=== PATIENT | female | born 1935 | race Caucasian/White ===

== ENCOUNTER 2018-09-08 19:10 | Inpatient (IN) | payer MEDICARE, BC, SELFPAY ==
[2018-09-08 19:16] VITALS: BP 114/95; PULSE 103; RESP 17; TEMP 36.7; O2SAT 94; BMI 22.0
--- NOTE | 2018-09-08 19:36 | EKG12_ITS ---
Test Reason : WEAKNESS Blood Pressure : / mmHG Vent. Rate : 102 BPM Atrial Rate : 102 BPM P-R Int : 166 ms QRS Dur : 080 ms QT Int : 318 ms P-R-T Axes : 034 -17 012 degrees QTc Int : 414 ms Sinus tachycardia Possible Left atrial enlargement Left ventricular hypertrophy Nonspecific ST abnormality Abnormal ECG Confirmed by JANELLE ARAIZA, PEYTON ([id number]), editor publications BARBARA VILLALPANDO ([id number]) on 09/13/2018 8:24:12 AM Referred By: Kristin Stewart Confirmed By:PEYTON LUIS MD
--- NOTE | 2018-09-08 19:40 | RAD_ITS ---
HISTORY: Weakness and chest discomfort XR Chest 1 View TECHNIQUE: Single frontal view of chest. # of images incl. paperwork: 1 COMPARISON: None. FINDINGS: Normal heart size. Pulmonary vasculature appears normal. The lungs are clear. No pleural effusions or pneumothorax. No acute osseous abnormality of the thorax. Senescent osseous changes. RAD/Chest 1 View (Portable) IMPRESSION: 1. No acute cardiopulmonary disease. at 2006 Reported and signed by: Hosea Leslie MD Electronically Signed: Hosea Leslie MD at 20:05 EDT Tel , Service support ,
[2018-09-08 19:55] VITALS: BP 99/72; PULSE 100; RESP 18; O2SAT 93
--- NOTE | 2018-09-08 19:56 | RAD_ITS ---
HISTORY: Status post fall with left hip pain XR Hip Unilateral with Pelvis when performed; 2-3 Views TECHNIQUE: 3 views # of images incl. paperwork: 3 COMPARISON: None. FINDINGS: Acute left hip subcapital femoral neck fracture with moderate displacement of the distal fragment superolaterally. Remainder of the bony pelvis is otherwise intact. Soft tissues appear unremarkable. No radiopaque foreign body. RAD/HIP, UNI W/ Pelvis 2-3 Views IMPRESSION: 1. Left hip subcapital femoral neck fracture with moderate displacement of the distal fragment. at 2043 Reported and signed by: Hosea Leslie MD Electronically Signed: Hosea Leslie MD at 20:42 EDT Tel , Service support ,
--- NOTE | 2018-09-08 19:57 | ED.DCSUM_ITS ---
History of Present Illness Chief Complaint: Weakness Informant: Patient Onset: Days Current Severity: Moderate Narrative: The patient here complaining of severe left hip pain she indicates she fell could not get up was awake and alert and basically was on the floor for home for about 4 days she eventually was able to get to the telephone call for assistance and she was brought to the hospital. Her only complaint right now is generalized weakness fatigue and left hip pain Past Medical History - Allergies and Home Meds Allergies/Adverse Reactions: Allergies latex Adverse Reaction (Verified 09/08/18 19:12) Other ALL ATB Adverse Reaction (Uncoded 09/08/18 19:16) Other BLOCKED HER BRAIN Primary Care Physician: Rodney Garcia III, MD [Primary Care Provider] - Smoking Status: Never smoker Review of Systems All systems negative except as indicated General: Denies: Chills, Fever, Sweats Eyes: Denies: Visual changes - bilaterally, Diplopia ENT: Denies: Rhinorrhea, Sore throat Cardiovascular: Denies: Chest pain, Palpitations Respiratory: Denies: Dyspnea, Cough, Dyspnea on exertion Gastrointestinal: Denies: Abdominal pain, Nausea, Vomiting, Diarrhea, Melena, Hematochezia Genitourinary: Denies: Dysuria, Hematuria, Frequency Musculoskeletal: Reports: Extremity Pain, - - She has obvious pain to the left hip discoloration to that area, she has about a 6 cm circular looks like a rug burn to the posterior hip where she has been laying in scooting her midline back was nontender her knees tib-fib ankle and feet were nonremarkable nontender upper extremities were nontender neurologic she is awake alert answering questions appropriately. Denies: Back pain Skin: Denies: Rash, Wounds Neurological: Denies: Headache, Weakness, Numbness Physical Exam Vital Signs/Narrative: Vital Signs Temp Pulse Resp BP Pulse Ox 09/08/18 19:55 100 18 99/72 93 09/08/18 19:16 98.0 F 103 H 17 114/95 H 94 General: Well nourished, Well developed, No Acute Distress Head: Normocephalic, Atraumatic Eyes: Perrl, EOMI ENT: Moist mucous membranes, No rhinorrhea Neck: Supple, Nontender Cardiovascular: Regular rate, Regular rhythm, No murmurs Respiratory: No distress, CTA bilaterally, Chest nontender Abdomen: Soft, Nontender, Nondistended, Normal bowel sounds Back: Nontender, Normal Inspection Extremities: No edema, Tenderness, - - See the documentation related to review of systems regarding this part of the exam Skin: Normal color, No rash Neurological: Alert, Oriented x3, Cranial nerves II-XII grossly intact, Normal Strength, Normal Sensation Psychological: Normal affect, Normal Mood Diagnostic/Tx/Re-eval - Medical Decision Making The patient's x-ray shows left subcapital fracture with displacement see that report the rest of the studies were generally unremarkable her CPK is pending sh e received IV fluids and pain management infected declined the morphine at this time given all the above we will discuss case for admission with hospitalist and orthopedic surgery Final Left hip fracture with displacement Fall ED Disposition - Plan for ED Patient: Referrals: Rodney Garcia III, MD [Primary Care Provider] -
[2018-09-08] MEDS: 0.9% Normal Saline 1,000 ML 150 ML IV (19:58)
[2018-09-08 20:00] LABS: Absolute Lymphocyte Count 1.75 X10^3/ul (0.83-4.51); Absolute Neutrophil Count 9.4 X10^3/uL (2.0-7.7); Eosinophil# 0.02 X10^3/uL; Eosinophils% 0.2 % (0-5); Hematocrit 47.1 % (37-47); Hemoglobin 15.7 g/dl (12.0-15.0); Lymphocyte # 1.75 X10^3/ul (4.0); Lymphocyte % 13.8 % (19-41); Mean Corp Hgb Conc 33.3 g/gl (32-36); Mean Corpuscular Hgb 30.5 pg (27.0-32.0); Mean Corpuscular Volume 91.6 fL (81-99); Mean Platelet Vol. 10.5 fl (6.2-12.0); Monocyte# 1.47 X10^3/uL; Monocyte% 11.6 % (0-10); Neutrophil # 9.41 X10^3/uL (2.7-7.7); Neutrophil % 74.1 % (47-70); Platelet Count 389 K/mm3 (150-450); RBC Distribution Width CV 12.8 % (11.6-14.6); RBC Distribution Width SD 41.9 fl (35.1-43.9); Red Blood Count 5.14 M/mm3 (4.2-5.4); White Blood Count 12.7 K/mm3 (4.4-11.0)
[2018-09-08 20:02] LABS: POSITIVE COUNT NO; POSITIVE DIFFERENTIAL NO; POSITIVE MORPHOLOGY NO
[2018-09-08 20:15] LABS: AST(SGOT) 45 U/L (15-37); Alanine Aminotransfer ALT/SGPT 36 U/L (13-56); Alkaline Phosphatase 121 U/L (45-117); Anion Gap 7 (5-15); BUN 52 mg/dL (7-18); BUN/Creat Ratio 73.3 RATIO (10-20); Calcium,Total 9.1 mg/dL (8.5-10.1); Chloride 102 mmol/L (98-107); Creatinine, Serum 0.71 mg/dL (0.55-1.02); EST Glomerular Filtration Rate 84 mL/min (>60); Est Glom Filt Rate - Afr Amer 101 mL/min (>60); Estimated Creatinine Clearance 33.71 ml/min; Glucose 108 mg/dL (74-106); Lipase 169 U/L (73-393); Potassium 3.5 mmol/L (3.5-5.1); Sodium Level 137 mmol/L (136-145)
[2018-09-08 20:22] VITALS: BP 134/83; PULSE 73; RESP 18; TEMP 36.7; O2SAT 96
--- NOTE | 2018-09-08 20:25 | ED.RN ---
PT HAS ABRASIONS ON BILAT ELBOW,BRUISING ON R HIP AND ABRASIONS ON R KNEE.PT WAS COVERED WITH FECES FROM JOHN-AREA TO FEET.JOHN-CARE GIVEN.ASKED PT WHAT THE GREEN SUBSTANCE ON HER THIGHS AND LOWER ABDOMEN AND SHE SAID,EITHER ABSORBANT JR OR LYSOL. ATTEMPT TO REMOVE.
[2018-09-08 20:30] LABS: BNP,B-Type NATRIURETIC PEPTIDE 95.4 pg/mL (0-100)
[2018-09-08 20:31] LABS: Red Blood Cells-Urine 0 SEEN /hpf (0-5); Squamous Epithelial Cells - UA 0 SEEN /hpf (5-10); White Blood Cells 0 SEEN /hpf (0-5)
[2018-09-08 20:45] LABS: Color, Urine Yellow (Yellow); Glucose, Dipstick Normal (Normal); Ketone-Dipstick 15 mg/dl (Negative); Leukocyte Esterase-Dipstick 25 /ul (Negative); Nitrite-Dipstick Negative (Negative); Occult Blood-Urine 10 /ul (Negative); Protein-Dipstick 100 mg/dl (Negative); Urine Bilirubin Dipstick Negative (Negative); Urine Clarity Clear (Clear); Urine Urobilinogen Normal (Normal)
--- NOTE | 2018-09-08 20:57 | ED.RN ---
MD AWARE PT REFUSED MORPHINE AND ZOFRAN.
[2018-09-08 21:04] LABS: Bacteria RARE /hpf (None Seen); Mucous, Urine RARE /hpf (<or=2+)
--- NOTE | 2018-09-08 21:15 | HP.PCM_ITS ---
Problem List (1) Closed left hip fracture Status: Acute Qualifiers: Encounter type: initial encounter Qualified Code(s): S72.002A - Fracture of unspecified part of neck of left femur, initial encounter for closed fracture (2) Cardiac enzymes elevated Status: Acute (3) Gastroenteritis Status: Acute History of Present Illness Date of Admission: 09/08/18 Chief Complaint: Left hip pain The patient is a 83 y/o F w/ no PMHx but does not routinely have evaluations who presents to the [facility] [place] ED on 09/08/18 with history of recent GI illness with diarrhea ~5 days prior with notable fatigue with fall and onset LLE pain with inability to get up, laying on the floor for unclear timeline, possibly days (4) and increased confusion with eventually ability to reach the telephone for help. Work-up in the ED included T 98, heart rate initially 103 with improvement to 73 with pain control, BP 114/95, respiratory rate 17, 94% on room air, CBC with WBC 12.7, hemoglobin 15.7, platelet 389 with left shift, CMP with BUN/Cr 52/0.71, glucose 108, AST/ALT 45/36, Alk phos 121, TCK 233, trop 0.048, BNP 95.4, lipase 169, UA with only noted evidence of dehydration but no acute UTI evident, plain film of the hip and pelvis with left hip subcapital femoral neck fracture with moderate displacement of the distal fragment, EKG with SR without acute evidence of ischemia, chest x-ray with no acute cardiopulmonary process. Case discussed with Dr. Sapp. 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 Home Medications: Ambulatory Orders Medication Instructions Recorded Ibuprofen 200 mg PO BID 09/08/18 Surgical History: no surgical history Psychiatric History: No pertinent psych hx [employer] History: No pertinent [employer] history Lives: Alone Smoking Status: Former smoker Tobacco Use: Non-smoker Alcohol: None Drugs: None - *Family History Maternal History Items: Dementia Paternal History Items: - - Patient denies any marketed paternal family history including heart disease, diabetes or cancer and states that her father passed at the age of 72 secondary to a trauma, hit by vehicle. Review of Systems Constitutional: Reports: Malaise, Weakness, Fatigue. Denies: Chills, Fever, Weight Change HEENT: Denies: Head Aches, Sinus Congestion, Sinus Drainage Cardiovascular: Denies: Chest Pain, Palpitations Respiratory: Denies: Cough, Shortness of breath at rest, Sputum production Gastrointestinal: Reports: Diarrhea, Nausea, Vomiting. Denies: Abdominal Pain Genitourinary: Denies: Dysuria Musculoskeletal: Reports: Joint Pain, Joint stiffness, Joint swelling, Joint Tenderness, Leg Pain Skin: Reports: Skin Changes. Denies: Rash, Wounds Neurological: Denies: Numbness, Tingling, Focal weakness Psychiatric: Denies: Anxiety, Depression, Homicidal Ideations, Suicidal Ideations Hematologic/ Lymphatic: Denies: Easy Bruising, Easy Bleeding VTE Information - Inpt Only VTE Present on Admission: No VTE Mechan Device Prophylaxis: SCD's VTE Pharm Prophylaxis ordered?: Yes Patient Problems: Active and Suspected Problems Closed left hip fracture (Acute) Cardiac enzymes elevated (Acute) Gastroenteritis (Acute) Subjective: Laying in the ED bed, fatigued appearance, notes ongoing left hip pain, declined ED pain regimen. Objective: Physical Examination: General: awake, alert, oriented to self place and recent events; however, some of her commends and discussion odd and atypical speech streamed sentencing, remains cooperative, seated upright in bed in no apparent distress. Skin: normal color, turgor, no icterus, cyanosis, abrasions to the extremities, staged, ecchymotic at site of fall. HEENT: AT/NC, EOMI, PERRLA, dry MM, no carotid bruits or JVD noted. Lungs: CTA bilaterally, moderate effort, mild decrease BL bases, no rales, ronchi or wheezing. Heart: Regular rate and rhythm; no gallop, rub audible, SM present. Abdomen: soft, thin habitus, NTTP, ND, normal BS, no HSM. Extremities: no cyanosis, clubbing, s/p fall w/ L hip fracture. Neurological: patient awake, alert, oriented x 3; cognitive function intact; pupils equally reactive to light and accomodation; cranial nerves II-XII grossly normal, moving all 4 extremities although minimal and restricted secondary to recent fall with L hip fracture, strength accordingly severely globally decreased. Psychiatric: affect appears normal, no acute evidence of depressive or anxiety feelings. - Physical Exam Vital Signs Temp Pulse Resp BP Pulse Ox 98.0 F 73 18 134/83 H 96 09/08/18 20:22 09/08/18 20:22 09/08/18 20:22 09/08/18 20:22 09/08/18 20:22 Oxygen Delivery Method Room Air Weight: 120 lb 9.486 oz Body Mass Index (BMI) 22.0 Laboratory Tests Past 24 Hrs 09/08/18 09/08/18 09/08/18 19:20 19:20 19:20 WBC 12.7 H RBC 5.14 Hgb 15.7 H Hct 47.1 H MCV 91.6 MCH 30.5 MCHC 33.3 RDW 12.8 RDW Differential 41.9 Plt Count 389 MPV 10.5 Immature Gran % (Auto) 0.300 Neut % (Auto) 74.1 H Lymph % (Auto) 13.8 L Bleckley % (Auto) 11.6 H Eos % (Auto) 0.2 Baso % (Auto) 0.0 Absolute Neuts (auto) 9.4 H Absolute Lymphs (auto) 1.75 Total Counted Not Reportable Sodium 137 Potassium 3.5 Chloride 102 Carbon Dioxide 28.0 Anion Gap 7 BUN 52 H Creatinine 0.71 Estim Creat Clear Calc 33.71 Est GFR (MDRD) Af Amer 101 Est GFR (MDRD) Non-Af 84 BUN/Creatinine Ratio 73.3 H Glucose 108 H Calcium 9.1 Total Bilirubin 0.80 Direct Bilirubin 0.20 AST 45 H ALT 36 Alkaline Phosphatase 121 H Total Creatine Kinase Troponin I 0.048 H B-Natriuretic Peptide 95.4 Total Protein 8.0 Albumin 3.0 L Globulin 5.0 H Lipase 169 Urine Color Urine Clarity Urine pH Ur Specific Katy Urine Protein Urine Glucose (UA) Urine Ketones Urine Occult Blood Urine Nitrite Urine Bilirubin Urine Urobilinogen Ur Leukocyte Esterase Urine RBC Urine WBC Ur Squamous Epith Cells Urine Bacteria Urine Mucus 09/08/18 09/08/18 19:20 20:15 WBC RBC Hgb Hct MCV MCH MCHC RDW RDW Differential Plt Count MPV Immature Gran % (Auto) Neut % (Auto) Lymph % (Auto) Bleckley % (Auto) Eos % (Auto) Baso % (Auto) Absolute Neuts (auto) Absolute Lymphs (auto) Total Counted Sodium Potassium Chloride Carbon Dioxide Anion Gap BUN Creatinine Estim Creat Clear Calc Est GFR (MDRD) Af Amer Est GFR (MDRD) Non-Af BUN/Creatinine Ratio Glucose Calcium Total Bilirubin Direct Bilirubin AST ALT Alkaline Phosphatase Total Creatine Kinase Pending Troponin I B-Natriuretic Peptide Total Protein Albumin Globulin Lipase Urine Color Yellow Urine Clarity Clear Urine pH 6.0 Ur Specific Katy 1.020 Urine Protein 100 H Urine Glucose (UA) Normal Urine Ketones 15 H Urine Occult Blood 10 H Urine Nitrite Negative Urine Bilirubin Negative Urine Urobilinogen Normal Ur Leukocyte Esterase 25 H Urine RBC Pending Urine WBC Pending Ur Squamous Epith Cells Pending Urine Bacteria Pending Urine Mucus Pending Assessment/Plan All Active Problems Closed left hip fracture (Acute) Cardiac enzymes elevated (Acute) Gastroenteritis (Acute) The patient is a 83 y/o F w/ no PMHx but does not routinely have evaluations who presents to the [facility] [place] ED on 09/08/18 with history of recent GI illness with diarrhea ~5 days prior with notable fatigue with fall and onset LLE pain with inability to get up, laying on the floor for unclear timeline, possibly days (4) and increased confusion with eventually ability to reach the telephone for help. (1) General debility, L hip pain s/p mechanical fall w/ left subcapital femoral neck fracture w/ Fall with Evidence Mild rhabdomyolysis: Work-up in the ED included T 98, heart rate initially 103 with improvement to 73 with pain control, BP 114/95, respiratory rate 17, 94% on room air, CBC with WBC 12.7, hemoglobin 15.7, platelet 389 with left shift, CMP with BUN/Cr 52/0.71, glucose 108, AST/ALT 45/36, Alk phos 121, TCK 233, trop 0.048, BNP 95.4, lipase 169, UA with only noted evidence of dehydration but no acute UTI evident, plain film of the hip and pelvis with left hip subcapital femoral neck fracture with moderate displacement of the distal fragment, chest x-ray with no acute cardiopulmonary process. Will admit to [facility] with telemetry, maintain NPO after midnight, continue gentle IVFs, obtain TSH, Mag level, UA not marked, cain placement, monitor I/Os, frequent positioning, fall precautions, type and screen, repeat AM TCK. Pain, anti-emetic regimen. PT/OT following operative intervention. CM consulted for discharge planning. Per Emerson Perioperative Cardiac Risk Index given >4 METS, age 83, Cr normal, independent living status, ASA prior minimal, noted indeterminate trop for orthopedic intervention, estimated risk of perioperative myocardial infarction or cardiac arrest suspect remains low; however, will maintain on telemetry, cycle cardiac enzymes, repeat EKG in AM and as needed and obtain ECHO prior to OR intervention. (2) Indeterminate cardiac enzyme, likely stress with murmur: EKG in ED SR with nonspecific changes with no acute evidence of ischemia, CXR w/ no acute cardiopulmonary process, initial trop 0.048. Will place on a monitored bed to assure no acute myocardial infarction with serial cardiac enzymes and EKGs. Will obtain ECHO. ASA, NG, morphine. FLP in AM. Mag pending. (3) Recent Diarrhea, resolved, Suspect Recent Acute Viral gastroenteritis: Will maintain on hydration, if recurrent diarrhea would wobtain c diff, stool cx, repeat AM CBC. Anti-emetics, pain regimen PRN. (4) DVT Prophylaxis: SCDs, lovenox. Code Visit Inpatient E&M: 95596 Init Hosp L3
[2018-09-08 21:26] LABS: CPK Total, Creatine Kinase 233 U/L (26-192)
[2018-09-08] MEDS: 0.9% Normal Saline 1,000 ML 999 ML IV (22:36)
[2018-09-08 22:45] VITALS: BP 134/90; PULSE 73; RESP 18; TEMP 36.4; O2SAT 96
[2018-09-08] MEDS: 0.9% Normal Saline 1,000 ML 100 ML IV (22:50)
[2018-09-08 22:57] VITALS: BMI 22.2
[2018-09-08 23:01] VITALS: BMI 22.2
[2018-09-08 23:12] LABS: International Normalized Ratio 1.2; Prothrombin Time (Protime)PT. 15.3 SECONDS (11.7-14.9)
[2018-09-08 23:13] LABS: Partial Thromboplast Time 27.7 Seconds (24.1-36.2)
[2018-09-08] MEDS: Enoxaparin 30 MG/0.3 ML Syringe SC (23:13)
[2018-09-08] MEDS: MELATONIN 3 MG TABLET PO (23:24)
[2018-09-08 23:31] LABS: Magnesium 2.5 mg/dL (1.6-2.6)
[2018-09-09] VITALS (18 sets, daily range): BP systolic 98–135; BP diastolic 65–86; PULSE 61–94; RESP 12–18; TEMP 36.2–36.8; O2SAT 91–96; BMI 22.2
--- NOTE | 2018-09-09 | HIP_PTH ---
PATIENT: FOREIGN GOODWIN LOC: [facility] U#:[id number] AGE/SX: 83/F ROOM: AL322 RE09/08/[address]: Dr. Kimmie Henry MD : [id number] BED: 1 DIS: 09/11/2018 SPEC #: [id number] RECD: 09/09/18 16:43 STATUS: CRYSTAL REQ #: [id number] [place]: 09/09/18 00:[address]: Shalom Sapp DEPT: SURGICAL PATHOLOGY RECD BY: Fox Higgins ENTERED: 09/12/18 08:42 SP TYPE: TOTAL HIP OTHR DR: MD Dr. Rodney Santos III, MD Dr. Nana Yaa Koram, MD Dr. Steven Widmer, MD Tissues: Hip, NOS Procedures: Decalcification bone/plaque Surgery Specimen Level IV Comments: @ Ordering doctor for DEC edited from to @ by JOSELIN at 09/12/18 1438 @ Ordering doctor for SUIV edited from to @ by JOSELIN at 09/12/18 1438 @ Submitting doctor edited from to @ by JOSELIN at 09/12/18 1438 HEADER OPERATION: Hemiarthroplasty, hip anterior PRE-OP DIAGNOSIS: Closed left hip fracture TISSUE SUBMITTED: Left femoral head bone and tissue MICROSCOPIC DIAGNOSIS Left hip fracture: Consistent with organizing fracture callous. AM:murtaza 09/15/18 MICROSCOPIC DESCRIPTION Slides are reviewed. GROSS DESCRIPTION Received is one container labeled with the patient's name and designated left femoral head bone and tissue. The specimen consists of a mendenhall femoral head measuring 4.5 x 4.5 x 3.5 cm. The articular surface is grossly unremarkable. The nonarticular surface is hemorrhagic and irregular consistent with fracture site. Also present in the specimen container are multiple irregular fragments of dark mendenhall bone measuring in aggregate 6 x 5 x 1.5 cm. Bundle Helper sections are submitted in three cassettes after decalcification. / AM:murtaza 09/12/18 TC:5 CPT: 35871, 97783
--- NOTE | 2018-09-09 05:55 | ECHOD_ITS ---
Reason For Study: Arrhythmia Procedure This was a 2D Doppler, Color Flow transthoracic echocardiogram. Technically difficult study, patient was scanned supine due to left hip fracture. Exam performed portable in patient room. Left Ventricle Normal LV size. Left ventricular systolic function is normal. The estimated ejection fraction is 65 %. Stage 1 diastolic dysfunction. No regional wall motion abnormalities noted. Right Ventricle Normal RV size. Normal systolic function. Atria Normal left atrium. Normal right atrium. Mitral Valve Normal mitral valve. Mild (1+) eccentric mitral valve insufficiency. Tricuspid Valve Normal tricuspid valve. Aortic Valve Trisinus/trileaflet aortic valve. Mild focal aortic valve calcification. Mild (1+) aortic valve insufficiency. Pulmonic Valve Normal pulmonic valve. Great Vessels Mildly dilated aortic root. The pulmonary artery is normal size. Normal inferior vena cava. Pericardium/Pleural No pericardial effusion. MMode/2D Measurements & Calculations LVIDd: 3.0 cm IVSd: 2.4 cm Ao root diam: 4.3 cm LVIDs: 2.4 cm LVPWd: 1.7 cm FS: 17.6 % Time Measurements MV dec time: 0.21 sec Doppler Measurements & Calculations MV E max anil: 44.2 cm/sec Lat Peak E' Anil: 4.6 cm/sec Med Peak E' Anil: 6.3 cm/sec MV A max anil: 105.7 cm/sec E/E' lat: 9.6 E/E' med: 7.0 MV E/A: 0.42 MV V2 max: 125.2 cm/sec MV P1/2t max anil: 70.6 cm/sec Ao V2 max: 90.0 cm/sec MV max P.3 mmHg MV P1/2t: 81.1 msec Ao max P.3 mmHg MV V2 mean: 59.4 cm/sec MV mean P.7 mmHg MV dec slope: 255.0 cm/sec2 MV V2 VTI: 23.1 cm MVA(P1/2t): 2.7 cm2 AI end-d anil: 384.4 cm/sec LV V1 max: 77.0 cm/sec PA V2 max: 95.2 cm/sec AI max anil: 439.1 cm/sec LV V1 max P.4 mmHg AI max P.1 mmHg AI dec slope: 269.5 cm/sec2 AI P1/2t: 477.2 msec Interpretation Summary Normal LV size. Left ventricular systolic function is normal. The estimated ejection fraction is 65 %. Stage 1 diastolic dysfunction. Mild (1+) aortic valve insufficiency. Ordering Physician: Kristin Stewart Referring Physician: Kristin Stewart Performed By: Shailesh Peters RCS
--- NOTE | 2018-09-09 05:55 | EKG12_ITS ---
Test Reason : AM EKG Blood Pressure : / mmHG Vent. Rate : 062 BPM Atrial Rate : 062 BPM P-R Int : 164 ms QRS Dur : 080 ms QT Int : 434 ms P-R-T Axes : 042 -08 009 degrees QTc Int : 440 ms Sinus rhythm with marked sinus arrhythmia Nonspecific T-Wave Abnormality Confirmed by HIGINIO ARAIZA, KRISS ([id number]), medical transcription editor BARBARA VILLALPANDO ([id number]) on 09/14/2018 11:40:20 AM Referred By: Kristin Stewart Confirmed By:KRISS SYLVESTER MD
[2018-09-09 06:01] LABS: Absolute Lymphocyte Count 1.59 X10^3/ul (0.83-4.51); Absolute Neutrophil Count 5.8 X10^3/uL (2.0-7.7); Eosinophil# 0.05 X10^3/uL; Eosinophils% 0.6 % (0-5); Hematocrit 42.7 % (37-47); Hemoglobin 13.9 g/dl (12.0-15.0); Lymphocyte # 1.59 X10^3/ul (4.0); Lymphocyte % 19.2 % (19-41); Mean Corp Hgb Conc 32.6 g/gl (32-36); Mean Corpuscular Hgb 30.2 pg (27.0-32.0); Mean Corpuscular Volume 92.8 fL (81-99); Mean Platelet Vol. 10.2 fl (6.2-12.0); Monocyte# 0.86 X10^3/uL; Monocyte% 10.4 % (0-10); Neutrophil # 5.77 X10^3/uL (2.7-7.7); Neutrophil % 69.4 % (47-70); Platelet Count 307 K/mm3 (150-450); RBC Distribution Width CV 12.7 % (11.6-14.6); White Blood Count 8.3 K/mm3 (4.4-11.0)
[2018-09-09 06:06] LABS: POSITIVE COUNT NO; POSITIVE DIFFERENTIAL NO; POSITIVE MORPHOLOGY NO
[2018-09-09 06:13] LABS: Anion Gap 8 (5-15); BUN 31 mg/dL (7-18); BUN/Creat Ratio 79.3 RATIO (10-20); Chloride 110 mmol/L (98-107); Cholesterol 120 mg/dL (200); Creatinine, Serum 0.39 mg/dL (0.55-1.02); EST Glomerular Filtration Rate 166 mL/min (>60); Est Glom Filt Rate - Afr Amer 201 mL/min (>60); Estimated Creatinine Clearance 32.17 ml/min; Glucose 86 mg/dL (74-106); High Density Lipoprotein 40 mg/dL; Potassium 3.2 mmol/L (3.5-5.1); Sodium Level 145 mmol/L (136-145); Triglycerides 117 mg/dL; Very Low Density Lipoprotein 23 mg/dL (5-40)
--- NOTE | 2018-09-09 07:08 | PCM.CONS.GEN ---
Reason for Consult Date of Consultation: 09/09/18 Reason for Consultation: Left hip pain. Requested by Dr. Stewart History of Present Illness: The patient is a 83 year old F with minimal medical history and lack of routine follow-up presents today with left hip pain. She presented to the emergency department last evening after having recent GI illness and diarrhea with fatigue for several days and then a fall a couple days ago. It is unknown how many days she maneuvered around her house with left hip pain she is somewhat lethargic this morning on examination. She does note that she use door handles to navigate around her house and finally was able to call the squad. She reports left hip pain which is worse with motion better with immobilization. Is a deep achy pain in her left thigh. There is a noticeable deformity in her foot is rotated. She was admitted to the hospital last night and seen by medicine. They recommended a cardiac echo and follow-up on enzymes. Patient reports 10 out of 10 pain with motion. 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 Review of Systems Constitutional: Denies: Chills, Fever, Weight Change HEENT: Denies: Head Aches, Sinus Congestion, Sinus Drainage Cardiovascular: Denies: Chest Pain, Palpitations Respiratory: Denies: Cough, Shortness of breath at rest, Sputum production Gastrointestinal: Reports: Diarrhea. Denies: Abdominal Pain, Nausea, Vomiting Genitourinary: Denies: Dysuria Musculoskeletal: Reports: Joint Pain, Joint Tenderness Skin: Reports: Rash - Rug burn on posterior thigh. Denies: Wounds Neurological: Denies: Numbness, Tingling, Focal weakness Psychiatric: Denies: Anxiety, Depression, Homicidal Ideations, Suicidal Ideations Hematologic/ Lymphatic: Denies: Easy Bruising, Easy Bleeding Patient Problems: Active and Suspected Problems Closed left hip fracture (Acute) Cardiac enzymes elevated (Acute) Gastroenteritis (Acute) Objective: Left hip x-ray show displaced subcapital femoral neck fracture - Physical Exam General: Alert, Cooperative HEENT: Atraumatic Extremities: - - Left lower extremity: Skin clean, dry, and intact. Limb is shortened and externally rotated Motor is intact dorsiflexion, EHL and plantar flexion. Sensation is intact to light touch saphenous, suresh,l superficial peroneal, deep peroneal and tibial distributions. Calves are soft and supple. Patient has some bruising and ecchymosis over the posterior thigh with superficial redness of the skin consistent with rug burn Vital Signs Temp Pulse Resp BP Pulse Ox 97.5 F L 64 16 116/69 95 09/09/18 04:45 09/09/18 04:45 09/09/18 04:45 09/09/18 04:45 09/09/18 04:45 Oxygen Delivery Method Room Air Weight: 117 lb 11.629 oz Body Mass Index (BMI) 22.2 Intake and Output for Last 24 Hours 09/07/18 09/08/18 09/09/18 23:59 23:59 23:59 Intake Total 104 / 104 687 / 687 Output Total 950 / 950 475 / 475 Balance -846 / -846 212 / 212 Laboratory Tests Past 24 Hrs 09/08/18 09/08/18 09/08/18 19:20 19:20 19:20 WBC 12.7 H RBC 5.14 Hgb 15.7 H Hct 47.1 H MCV 91.6 MCH 30.5 MCHC 33.3 RDW 12.8 RDW Differential 41.9 Plt Count 389 MPV 10.5 Immature Gran % (Auto) 0.300 Neut % (Auto) 74.1 H Lymph % (Auto) 13.8 L [place] % (Auto) 11.6 H Eos % (Auto) 0.2 Baso % (Auto) 0.0 Absolute Neuts (auto) 9.4 H Absolute Lymphs (auto) 1.75 Total Counted Not Reportable PT INR APTT Sodium 137 Potassium 3.5 Chloride 102 Carbon Dioxide 28.0 Anion Gap 7 BUN 52 H Creatinine 0.71 Estim Creat Clear Calc 33.71 Est GFR (MDRD) Af Amer 101 Est GFR (MDRD) Non-Af 84 BUN/Creatinine Ratio 73.3 H Glucose 108 H Calcium 9.1 Magnesium Total Bilirubin 0.80 Direct Bilirubin 0.20 AST 45 H ALT 36 Alkaline Phosphatase 121 H Total Creatine Kinase Troponin I 0.048 H B-Natriuretic Peptide 95.4 Total Protein 8.0 Albumin 3.0 L Globulin 5.0 H Triglycerides Cholesterol LDL Cholesterol VLDL Cholesterol HDL Cholesterol Lipase 169 TSH Urine Color Urine Clarity Urine pH Ur Specific [place] Urine Protein Urine Glucose (UA) Urine Ketones Urine Occult Blood Urine Nitrite Urine Bilirubin Urine Urobilinogen Ur Leukocyte Esterase Urine RBC Urine WBC Ur Squamous Epith Cells Urine Bacteria Urine Mucus Blood Type Antibody Screen 09/08/18 09/08/18 09/08/18 19:20 20:15 22:32 WBC RBC Hgb Hct MCV MCH MCHC RDW RDW Differential Plt Count MPV Immature Gran % (Auto) Neut % (Auto) Lymph % (Auto) [place] % (Auto) Eos % (Auto) Baso % (Auto) Absolute Neuts (auto) Absolute Lymphs (auto) Total Counted PT 15.3 H INR 1.2 APTT 27.7 Sodium Potassium Chloride Carbon Dioxide Anion Gap BUN Creatinine Estim Creat Clear Calc Est GFR (MDRD) Af Amer Est GFR (MDRD) Non-Af BUN/Creatinine Ratio Glucose Calcium Magnesium Total Bilirubin Direct Bilirubin AST ALT Alkaline Phosphatase Total Creatine Kinase 233 H Troponin I B-Natriuretic Peptide Total Protein Albumin Globulin Triglycerides Cholesterol LDL Cholesterol VLDL Cholesterol HDL Cholesterol Lipase TSH Urine Color Yellow Urine Clarity Clear Urine pH 6.0 Ur Specific [place] 1.020 Urine Protein 100 H Urine Glucose (UA) Normal Urine Ketones 15 H Urine Occult Blood 10 H Urine Nitrite Negative Urine Bilirubin Negative Urine Urobilinogen Normal Ur Leukocyte Esterase 25 H Urine RBC 0 SEEN Urine WBC 0 SEEN Ur Squamous Epith Cells 0 SEEN Urine Bacteria RARE Urine Mucus RARE Blood Type Antibody Screen 09/08/18 09/08/18 09/08/18 22:32 22:32 22:32 WBC RBC Hgb Hct MCV MCH MCHC RDW RDW Differential Plt Count MPV Immature Gran % (Auto) Neut % (Auto) Lymph % (Auto) [place] % (Auto) Eos % (Auto) Baso % (Auto) Absolute Neuts (auto) Absolute Lymphs (auto) Total Counted PT INR APTT Sodium Potassium Chloride Carbon Dioxide Anion Gap BUN Creatinine Estim Creat Clear Calc Est GFR (MDRD) Af Amer Est GFR (MDRD) Non-Af BUN/Creatinine Ratio Glucose Calcium Magnesium 2.5 Total Bilirubin Direct Bilirubin AST ALT Alkaline Phosphatase Total Creatine Kinase Troponin I 0.032 B-Natriuretic Peptide Total Protein Albumin Globulin Triglycerides Cholesterol LDL Cholesterol VLDL Cholesterol HDL Cholesterol Lipase TSH 1.50 Urine Color Urine Clarity Urine pH Ur Specific [place] Urine Protein Urine Glucose (UA) Urine Ketones Urine Occult Blood Urine Nitrite Urine Bilirubin Urine Urobilinogen Ur Leukocyte Esterase Urine RBC Urine WBC Ur Squamous Epith Cells Urine Bacteria Urine Mucus Blood Type O POSITIVE Antibody Screen NEGATIVE 09/09/18 09/09/18 09/09/18 01:15 05:35 05:35 WBC 8.3 RBC 4.60 Hgb 13.9 Hct 42.7 MCV 92.8 MCH 30.2 MCHC 32.6 RDW 12.7 RDW Differential 42.0 Plt Count 307 MPV 10.2 Immature Gran % (Auto) 0.400 Neut % (Auto) 69.4 Lymph % (Auto) 19.2 [place] % (Auto) 10.4 H Eos % (Auto) 0.6 Baso % (Auto) 0.0 Absolute Neuts (auto) 5.8 Absolute Lymphs (auto) 1.59 Total Counted Not Reportable PT INR APTT Sodium 145 Potassium 3.2 L Chloride 110 H Carbon Dioxide 27.0 Anion Gap 8 BUN 31 H Creatinine 0.39 L Estim Creat Clear Calc 32.17 Est GFR (MDRD) Af Amer 201 Est GFR (MDRD) Non-Af 166 BUN/Creatinine Ratio 79.3 H Glucose 86 Calcium 8.0 L Magnesium Total Bilirubin Direct Bilirubin AST ALT Alkaline Phosphatase Total Creatine Kinase Troponin I 0.031 B-Natriuretic Peptide Total Protein Albumin Globulin Triglycerides 117 Cholesterol 120 LDL Cholesterol 57 VLDL Cholesterol 23 HDL Cholesterol 40 Lipase TSH Urine Color Urine Clarity Urine pH Ur Specific [place] Urine Protein Urine Glucose (UA) Urine Ketones Urine Occult Blood Urine Nitrite Urine Bilirubin Urine Urobilinogen Ur Leukocyte Esterase Urine RBC Urine WBC Ur Squamous Epith Cells Urine Bacteria Urine Mucus Blood Type Antibody Screen Assessment/Plan All Active Problems Closed left hip fracture (Acute) Cardiac enzymes elevated (Acute) Gastroenteritis (Acute) Left displaced subcapital femoral neck fracture Natural history of the disease process and treatment options were discussed the patient. Patient has been educated on treatment options including nonoperative and operative treatments. At this time I recommended a left hip hemiarthroplasty based on patient's fracture pattern age and overall health. Need to obtain medical clearance prior to proceeding with surgery. Echocardiogram has been recommended. At this time plan is for surgery in the afternoon. Patient will remain n.p.o. Patient will remain on bedrest until she can be appropriately treated. We will order 2 g of Ancef on-call to the operating room. Patient is being consented for surgery. Risks and benefits of procedure were discussed the patient including but not limited to blood loss, DVTs, PEs, neurovascular damage, infection, the risk of anesthesia including loss of life. [facility] Office:
[2018-09-09] MEDS: 0.9% Normal Saline 1,000 ML 100 ML IV ×2 (08:10→18:20)
--- NOTE | 2018-09-09 09:18 | CASEMGMT ---
RN DARLENE CAR PARKER CM to room to meet with patient for initial transition planning/care coordination assessment. RN DARLENE introduced self and role at [facility]. Pt voices understanding and consents to assessment at this time. Pt resting in bed in no distress at this time. Pt is A/O at this time and answers all questions appropriately. Pt stated her in 2011 and her daughter in 2013. She states her closest relatives are 2 nieces that live in [place], [place] and [facility]. She states they were just here in [place] visiting her prior to her fall and that they are aware she is in the hospital. Discussed HCPOA. Pt states she has never completed paperwork but that she would want her niece, Sonali, to make decisions for her. She states she would also be okay with Kelly making healthcare decisions for her if she were unable to do so herself. Offered to have SW come talk with her to help her complete paperwork but she declines at this time, stating, I am just too overwhelmed right now to do anything like that. Discussed discharge planning with pt. Pt states, I will need to go to the Rehab unit here at this hospital. Pt informed that does not have any beds available. Pt made aware that TCU may have beds available. Pt stated she wishes to go to the TCU unit if there are beds available and stated, I don't want to go any custodial. It has to be here. AALIYAH, Ladonna Arnold, notified. Donna DUPONT RN, CM
--- NOTE | 2018-09-09 09:32 | PCM.PN.HOSP ---
Patient Problems: Active and Suspected Problems Closed left hip fracture (Acute) Cardiac enzymes elevated (Acute) Gastroenteritis (Acute) Subjective: Patient seen and examined. She was admitted with complaint of left hip pain after she states she fell while having a recent bout of diarrhea. She started having left lower extremity pain and was unable to get up and lay on the floor for several days. She was eventually able to reach the phone and call for help. X-rays done showed left hip subcapital femoral neck fracture with moderate displacement of the distal fragment and EKG showed sinus rhythm with no acute ST changes. Orthopedic surgery on board. Patient has no complaints this morning. Pain is well controlled. She denies any fever or chills, palpitations or dizziness, chest pain, diarrhea vomiting. Review of systems is otherwise negative. Labs and vitals reviewed. Vitals/I&O's: Vital Signs Temp Pulse Resp BP Pulse Ox 98.1 F 84 16 116/76 92 09/09/18 07:51 09/09/18 07:51 09/09/18 07:51 09/09/18 07:51 09/09/18 07:51 Oxygen Delivery Method Room Air Weight: 117 lb 11.629 oz Body Mass Index (BMI) 22.2 Intake and Output for Last 24 Hours 09/07/18 09/08/18 09/09/18 23:59 23:59 23:59 Intake Total 104 / 104 687 / 687 Output Total 950 / 950 475 / 475 Balance -846 / -846 212 / 212 General: Alert, Oriented x3, Cooperative, No apparent distress HEENT: Atraumatic, PERRLA, EOMI, Normocephalic Oral: Moist Mucosa Neck: Supple, No JVD, Negative Carotid Bruits Lungs: Clear to auscultation, Normal air movement, No rhonchi, No wheeze, No rales Cardiovascular: Regular rate, Regular Rhythm, Normal S1, Normal S2, No murmurs Abdomen: Bowel Sounds Present, Soft, Non Tender, Non-Distended, No Hepato-splenomegaly Extremities: No cyanosis, No edema, Capillary Refill Less than 3 Seconds Skin: No rashes, No breakdown Musculoskeletal: - - LLE shortened, externally rotated Lymphatic: No Cervical, Supraclavicular, or Inguinal Adenopathy Neurological: Cranial nerves II-XII grossly intact Psych/Mental Status: Normal Affect, Appropriate, Alert and oriented to time, place, person, mood and affect Laboratory Results 09/08/18 19:20: WBC 12.7 H, RBC 5.14, Hgb 15.7 H, Hct 47.1 H, MCV 91.6, MCH 30.5, MCHC 33.3, RDW 12.8, RDW Differential 41.9, Plt Count 389, MPV 10.5, Immature Gran % (Auto) 0.300, Neut % (Auto) 74.1 H, Lymph % (Auto) 13.8 L, [place] % (Auto) 11.6 H, Eos % (Auto) 0.2, Baso % (Auto) 0.0, Absolute Neuts (auto) 9.4 H, Absolute Lymphs (auto) 1.75, Total Counted Not Reportable 09/08/18 19:20: Sodium 137, Potassium 3.5, Chloride 102, Carbon Dioxide 28.0, Anion Gap 7, BUN 52 H, Creatinine 0.71, Estim Creat Clear Calc 33.71, Est GFR (MDRD) Af Amer 101, Est GFR (MDRD) Non-Af 84, BUN/Creatinine Ratio 73.3 H, Glucose 108 H, Calcium 9.1, Total Bilirubin 0.80, Direct Bilirubin 0.20, AST 45 H, ALT 36, Alkaline Phosphatase 121 H, Troponin I 0.048 H, Total Protein 8.0, Albumin 3.0 L, Globulin 5.0 H, Lipase 169 09/08/18 19:20: B-Natriuretic Peptide 95.4 09/08/18 19:20: Total Creatine Kinase 233 H 09/08/18 20:15: Urine Color Yellow, Urine Clarity Clear, Urine pH 6.0, Ur Specific [place] 1.020, Urine Protein 100 H, Urine Glucose (UA) Normal, Urine Ketones 15 H, Urine Occult Blood 10 H, Urine Nitrite Negative, Urine Bilirubin Negative, Urine Urobilinogen Normal, Ur Leukocyte Esterase 25 H, Urine RBC 0 SEEN, Urine WBC 0 SEEN, Ur Squamous Epith Cells 0 SEEN, Urine Bacteria RARE, Urine Mucus RARE 09/08/18 22:32: PT 15.3 H, INR 1.2, APTT 27.7 09/08/18 22:32: Magnesium 2.5, TSH 1.50 09/08/18 22:32: Blood Type O POSITIVE, Antibody Screen NEGATIVE 09/08/18 22:32: Troponin I 0.032 09/09/18 01:15: Troponin I 0.031 09/09/18 05:35: WBC 8.3, RBC 4.60, Hgb 13.9, Hct 42.7, MCV 92.8, MCH 30.2, MCHC 32.6, RDW 12.7, RDW Differential 42.0, Plt Count 307, MPV 10.2, Immature Gran % (Auto) 0.400, Neut % (Auto) 69.4, Lymph % (Auto) 19.2, [place] % (Auto) 10.4 H, Eos % (Auto) 0.6, Baso % (Auto) 0.0, Absolute Neuts (auto) 5.8, Absolute Lymphs (auto) 1.59, Total Counted Not Reportable 09/09/18 05:35: Sodium 145, Potassium 3.2 L, Chloride 110 H, Carbon Dioxide 27.0, Anion Gap 8, BUN 31 H, Creatinine 0.39 L, Estim Creat Clear Calc 32.17, Est GFR (MDRD) Af Amer 201, Est GFR (MDRD) Non-Af 166, BUN/Creatinine Ratio 79.3 H, Glucose 86, Calcium 8.0 L, Triglycerides 117, Cholesterol 120, LDL Cholesterol 57, VLDL Cholesterol 23, HDL Cholesterol 40 Diagnostic Data Chest X-Ray 09/08/18 19:40 IMPRESSION: 1. No acute cardiopulmonary disease. at 2006 Reported and signed by: Hosea Leslie MD Electronically Signed: Hosea Leslie MD at 20:05 EDT Tel , Service support , Hip/Pelvis X-Ray 09/08/18 19:56 IMPRESSION: 1. Left hip subcapital femoral neck fracture with moderate displacement of the distal fragment. at 2043 Reported and signed by: Hosea Leslie MD Electronically Signed: Hosea Leslie MD at 20:42 EDT Tel , Service support , Current Medications Acetaminophen (Tylenol) 650 mg PO Q6H PRN PRN PRN Reason: Non-cardiac pain (mod-severe) Hydrocodone Bitart/Acetaminophen (Atkins 5mg-325mg) 1 - 2 tablet PO Q4H PRN PRN PRN Reason: MOD-SEVERE PAIN (4-10) Al Hydroxide/Mg Hydroxide (Mylanta Ii) 15 - 30 ml PO Q4H PRN PRN PRN Reason: INDIGESTION Albuterol Sulfate (Ventolin Aerosols) 2.5 mg INHALATION Q2H PRN PRN PRN Reason: dyspnea, wheezing Aspirin (Aspirin, Baby) 81 mg PO DAILY@0800 [facility] Dextrose (D50w Syringe) 0 gm IV X1 PRN; Protocol PRN Reason: Hypoglycemia Enoxaparin Sodium (Lovenox) 30 mg SC DAILY@0600 [facility] Last Admin: 09/09/18 04:14 Dose: Not Given Glucagon () 1 mg IM .X1 PRN PRN Reason: Hypoglycemia Hydralazine HCl (Apresoline Iv) 10 mg IV Q4H PRN PRN PRN Reason: SBP > 160 Sodium Chloride () 1,000 mls @ 100 mls/hr IV .Q10H [facility] Last Admin: 09/09/18 08:10 Dose: 100 mls/hr Sodium Chloride () 250 mls @ 15 mls/hr IV .[id number] PRN PRN Reason: SALINE FLUSH Magnesium Hydroxide (Milk Of Magnesia) 30 ml PO DAILY PRN PRN PRN Reason: Constipation Melatonin (Melatonin) 3 mg PO QHS PRN PRN PRN Reason: INSOMNIA Last Admin: 09/08/18 23:24 Dose: 3 mg Morphine Sulfate () 1 - 2 mg IV Q4H PRN PRN PRN Reason: PAIN Ondansetron HCl (Zofran) 4 mg IV Q8H PRN PRN PRN Reason: NAUSEA/VOMITING Psyllium Hydrophilic Mucilloid (Metamucil) 1 packet PO DAILY PRN PRN PRN Reason: Constipation Senna/Docusate Sodium (Senokot-S, Lorena-Colace) 2 tablet PO BID PRN PRN PRN Reason: Constipation Sodium Chloride () 5 - 15 ml IV UD PRN PRN Reason: SALINE FLUSH Medical Necessity - Tobacco Use Smoking Status: Former smoker Tobacco Use: Non-smoker Assessment/Plan All Active Problems Closed left hip fracture (Acute) Cardiac enzymes elevated (Acute) Gastroenteritis (Acute) 1. Left hip femoral neck fracture s/p mechanical fall pain is now well controlled PT/OT on board orthopedic surgery on board on tyulenol for pain for surgery today 2D echo pending; ordered o/a of initial troponin of 0.048, and went down to 0.032 and 0.031 per [facility] perioperative cardiac risk index she is low risk for orthopedic surgery will await 2D echo fall precautions 2. Debility due to mechanical fall: as under 1. 3. Acute viral gastroenteritis; resolved. Diarrhea has resolved now. DVT prophylaxis: lovenox Code Visit Inpatient E&M: 00199 Subs Hosp L3
--- NOTE | 2018-09-09 09:36 | PN_ITS ---
Patient Problems: Active and Suspected Problems Closed left hip fracture (Acute) Cardiac enzymes elevated (Acute) Gastroenteritis (Acute) Subjective: Patient seen and examined. She was admitted with complaint of left hip pain after she states she fell while having a recent bout of diarrhea. She started having left lower extremity pain and was unable to get up and lay on the floor for several days. She was eventually able to reach the phone and call for help. X-rays done showed left hip subcapital femoral neck fracture with moderate displacement of the distal fragment and EKG showed sinus rhythm with no acute ST changes. Orthopedic surgery on board. Patient has no complaints this morning. Pain is well controlled. She denies any fever or chills, palpitations or dizziness, chest pain, diarrhea vomiting. Review of systems is otherwise negative. Labs and vitals reviewed. Vitals/I&O's: Vital Signs Temp Pulse Resp BP Pulse Ox 98.1 F 84 16 116/76 92 09/09/18 07:51 09/09/18 07:51 09/09/18 07:51 09/09/18 07:51 09/09/18 07:51 Oxygen Delivery Method Room Air Weight: 117 lb 11.629 oz Body Mass Index (BMI) 22.2 Intake and Output for Last 24 Hours 09/07/18 09/08/18 09/09/18 23:59 23:59 23:59 Intake Total 104 / 104 687 / 687 Output Total 950 / 950 475 / 475 Balance -846 / -846 212 / 212 General: Alert, Oriented x3, Cooperative, No apparent distress HEENT: Atraumatic, PERRLA, EOMI, Normocephalic Oral: Moist Mucosa Neck: Supple, No JVD, Negative Carotid Bruits Lungs: Clear to auscultation, Normal air movement, No rhonchi, No wheeze, No rales Cardiovascular: Regular rate, Regular Rhythm, Normal S1, Normal S2, No murmurs Abdomen: Bowel Sounds Present, Soft, Non Tender, Non-Distended, No Hepato- splenomegaly Extremities: No cyanosis, No edema, Capillary Refill Less than 3 Seconds Skin: No rashes, No breakdown Musculoskeletal: - - LLE shortened, externally rotated Lymphatic: No Cervical, Supraclavicular, or Inguinal Adenopathy Neurological: Cranial nerves II-XII grossly intact Psych/Mental Status: Normal Affect, Appropriate, Alert and oriented to time, place, person, mood and affect Laboratory Results 09/08/18 19:20: WBC 12.7 H, RBC 5.14, Hgb 15.7 H, Hct 47.1 H, MCV 91.6, MCH 30.5, MCHC 33.3, RDW 12.8, RDW Differential 41.9, Plt Count 389, MPV 10.5, Linda ture Gran % (Auto) 0.300, Neut % (Auto) 74.1 H, Lymph % (Auto) 13.8 L, Taliaferro % (Auto) 11.6 H, Eos % (Auto) 0.2, Baso % (Auto) 0.0, Absolute Neuts (auto) 9.4 H, Absolute Lymphs (auto) 1.75, Total Counted Not Reportable 09/08/18 19:20: Sodium 137, Potassium 3.5, Chloride 102, Carbon Dioxide 28.0, Anion Gap 7, BUN 52 H, Creatinine 0.71, Estim Creat Clear Calc 33.71, Est GFR (MDRD) Af Amer 101, Est GFR (MDRD) Non-Af 84, BUN/Creatinine Ratio 73.3 H, Glucose 108 H, Calcium 9.1, Total Bilirubin 0.80, Direct Bilirubin 0.20, AST 45 H, ALT 36, Alkaline Phosphatase 121 H, Troponin I 0.048 H, Total Protein 8.0, Albumin 3.0 L, Globulin 5.0 H, Lipase 169 09/08/18 19:20: B-Natriuretic Peptide 95.4 09/08/18 19:20: Total Creatine Kinase 233 H 09/08/18 20:15: Urine Color Yellow, Urine Clarity Clear, Urine pH 6.0, Ur Specific [place] 1.020, Urine Protein 100 H, Urine Glucose (UA) Normal, Urine Ketones 15 H, Urine Occult Blood 10 H, Urine Nitrite Negative, Urine Bilirubin Negative, Urine Urobilinogen Normal, Ur Leukocyte Esterase 25 H, Urine RBC 0 SEEN, Urine WBC 0 SEEN, Ur Squamous Epith Cells 0 SEEN, Urine Bacteria RARE, Urine Mucus RARE 09/08/18 22:32: PT 15.3 H, INR 1.2, APTT 27.7 09/08/18 22:32: Magnesium 2.5, TSH 1.50 09/08/18 22:32: Blood Type O POSITIVE, Antibody Screen NEGATIVE 09/08/18 22:32: Troponin I 0.032 09/09/18 01:15: Troponin I 0.031 09/09/18 05:35: WBC 8.3, RBC 4.60, Hgb 13.9, Hct 42.7, MCV 92.8, MCH 30.2, MCHC 32.6, RDW 12.7, RDW Differential 42.0, Plt Count 307, MPV 10.2, Immature Gran % (Auto) 0.400, Neut % (Auto) 69.4, Lymph % (Auto) 19.2, Tal[place]ferro % (Auto) 10.4 H, Eos % (Auto) 0.6, Baso % (Auto) 0.0, Absolute Neuts (auto) 5.8, Absolute Lymphs (auto) 1.59, Total Counted Not Reportable 09/09/18 05:35: Sodium 145, Potassium 3.2 L, Chloride 110 H, Carbon Dioxide 27.0, Anion Gap 8, BUN 31 H, Creatinine 0.39 L, Estim Creat Clear Calc 32.17, Est GFR (MDRD) Af Amer 201, Est GFR (MDRD) Non-Af 166, BUN/Creatinine Ratio 79.3 H, Glucose 86, Calcium 8.0 L, Triglycerides 117, Cholesterol 120, LDL Cholesterol 57, VLDL Cholesterol 23, HDL Cholesterol 40 Diagnostic Data Chest X-Ray 09/08/18 19:40 IMPRESSION: 1. No acute cardiopulmonary disease. at 2006 Reported and signed by: Hosea Leslie MD Electronically Signed: Hosea Leslie MD at 20:05 EDT Tel , Service support , Hip/Pelvis X-Ray 09/08/18 19:56 IMPRESSION: 1. Left hip subcapital femoral neck fracture with moderate displacement of the distal fragment. at 2043 Reported and signed by: Hosea Leslie MD Electronically Signed: Hosae Leslie MD at 20:42 EDT Tel , Service support , Current Medications Acetaminophen (Tylenol) 650 mg PO Q6H PRN PRN PRN Reason: Non-cardiac pain (mod-severe) Hydrocodone Bitart/Acetaminophen ([place] 5mg-325mg) 1 - 2 tablet PO Q4H PRN PRN PRN Reason: MOD-SEVERE PAIN (4-01/12) Al Hydroxide/Mg Hydroxide (Mylanta Ii) 15 - 30 ml PO Q4H PRN PRN PRN Reason: INDIGESTION Albuterol Sulfate (Ventolin Aerosols) 2.5 mg INHALATION Q2H PRN PRN PRN Reason: dyspnea, wheezing Aspirin (Aspirin, Baby) 81 mg PO DAILY@0800 [facility] Dextrose (D50w Syringe) 0 gm IV X1 PRN; Protocol PRN Reason: Hypoglycemia Enoxaparin Sodium (Lovenox) 30 mg SC DAILY@0600 [facility] Last Admin: 09/09/18 04:14 Dose: Not Given Glucagon () 1 mg IM .X1 PRN PRN Reason: Hypoglycemia Hydralazine HCl (Apresoline Iv) 10 mg IV Q4H PRN PRN PRN Reason: SBP > 160 Sodium Chloride () 1,000 mls @ 100 mls/hr IV .Q10H TIFFANI Last Admin: 09/09/18 08:10 Dose: 100 mls/hr Sodium Chloride () 250 mls @ 15 mls/hr IV .[id number] PRN PRN Reason: SALINE FLUSH Magnesium Hydroxide (Milk Of Magnesia) 30 ml PO DAILY PRN PRN PRN Reason: Constipation Melatonin (Melatonin) 3 mg PO QHS PRN PRN PRN Reason: INSOMNIA Last Admin: 09/08/18 23:24 Dose: 3 mg Morphine Sulfate () 1 - 2 mg IV Q4H PRN PRN PRN Reason: PAIN Ondansetron HCl (Zofran) 4 mg IV Q8H PRN PRN PRN Reason: NAUSEA/VOMITING Psyllium Hydrophilic Mucilloid (Metamucil) 1 packet PO DAILY PRN PRN PRN Reason: Constipation Senna/Docusate Sodium (Senokot-S, Lorena-Colace) 2 tablet PO BID PRN PRN PRN Reason: Constipation Sodium Chloride () 5 - 15 ml IV UD PRN PRN Reason: SALINE FLUSH Medical Necessity - Tobacco Use Smoking Status: Former smoker Tobacco Use: Non-smoker Assessment/Plan All Active Problems Closed left hip fracture (Acute) Cardiac enzymes elevated (Acute) Gastroenteritis (Acute) 1. Left hip femoral neck fracture s/p mechanical fall * pain is now well controlled * PT/OT on board * orthopedic surgery on board * on tyulenol for pain * for surgery today * 2D echo pending; ordered o/a of initial troponin of 0.048, and went down to 0.032 and 0.031 * per [facility] perioperative cardiac risk index she is low risk for orthopedic surgery * will await 2D echo * fall precautions * 2. Debility due to mechanical fall: as under 1. 3. Acute viral gastroenteritis; resolved. Diarrhea has resolved now. DVT prophylaxis: lovenox * Code Visit Inpatient E&M: 41130 Subs Hosp L3
--- NOTE | 2018-09-09 10:16 | CASEMGMT ---
Social Work Note SW received referral for SNF placement from RN DARLENE He. Pt is interested in TCU as currently there are no beds on [facility] and [facility] doesn't take weekend admissions. SW placed a call to [facility] in TCU, left message and provided referral. SW received call back from Lily in TCU stating she is able to accept pt Wednesday. AALIYAH spoke with pt, introduced self and role at [facility]. Pt is alert and orientated x3. SW updated pt on acceptance to TCU Wednesday and explained Medicare guidelines. Pt states understanding, is agreeable to TCU Wednesday. Green sheet on chart. Plan: TCU Wednesday Ladonna Arnold CHAR FILTER OPERATOR HELPER, MANAGEMENT ASSISTANT
--- NOTE | 2018-09-09 13:15 | NURSING ---
PT TO OR VIA BED.
--- NOTE | 2018-09-09 15:33 | RAD_ITS ---
HISTORY: Intraoperative total left hip arthroplasty XR Hip Unilateral with Pelvis when performed; 1 View TECHNIQUE: 3 views # of images incl. paperwork: 3 COMPARISON: 09/08/2018 FINDINGS: Intraoperative fluoroscopy was provided during total left hip arthroplasty. Please refer to the surgeon's report for further detail. RAD/Hip 1 view with Pelvis IMPRESSION: 1. Intraoperative fluoroscopy provided during total left hip arthroplasty. at 2133 Reported and signed by: Hosea Leslie MD Electronically Signed: Hosea Leslie MD at 21:32 EDT Tel , Service support ,
--- NOTE | 2018-09-09 16:03 | PCM.OPRPT ---
Report of Operation Date of Procedure: 09/09/18 Pre-Operative Diagnosis: Left displaced subcapital femoral neck fracture Post-Operative Diagnosis: Left displaced subcapital femoral neck fracture Surgery/Procedure Performed:: Left hip cemented hemiarthroplasty Description of Surgical Findings:: Stable hip equal leg lengths mule operator: Maria R Sheikh Type of Anesthesia:: General Anesthesiologist: Terrell Jones Special Medications: 2 g Ancef Specimen's removed: Femoral head fracture Estimated Blood Loss (mL): 75 Fluids Replaced: 1200 mL crystalloid Description of Procedure: Components used: [place] Susan 37.5 size 1 stem, Alex bipolar hemiarthroplasty 45 mm cobalt-chromium femoral head. [place] cobalt chromium 26 mm +8 inner head Brief history operative indications: 83-year-old female who sustained a fall and a left hip subcapital femoral neck fracture which was displaced. Patient was consulted on risks and benefits of hemiarthroplasty including balance to blood loss, DVTs, PEs, nervous damage, infection, and risk of anesthesia the loss of life as well as leg length discrepancies and dislocations. Patient demonstrated and understanding was able to sign informed consent Procedure: On the date of procedure the patient's L hip was marked in the preoperative area. Patient was then taken back to the operating room where anesthesia assumed control of the C-spine and airway and administered anesthetic. Patient was transferred to the operating table and placed in the supine position. The hips were placed the break of the bed and a bump was placed in the sacrum. The L lower extremity was then prepped out in a sterile fashion using chlorhexidine while the surgeon scrubbed. Upon reentering the room the L lower extremity was draped in the standard orthopedic fashion and the incision was marked. A timeout was called and everyone agreed upon the side, the site, the procedure be performed, antibody given, and patient's identity. At this time incision was made through skin, subcutaneous tissue, and fat down to fascia. The fascia was then incised and the TFL was retracted laterally. A retractor was placed on the lateral border of the femoral neck. Attention was directed to the inferior portion of the approach and all crossing vessels were identified and appropriately coagulated. A retractor was then placed on the medial portion of the femoral neck. The anterior capsule was then cleared of all soft tissue and then H shaped capsulotomy was made. The retractors were then placed inside the capsule. The femoral neck was identified and a cleanup cut was made. At this time a power corkscrew was used to remove the femoral head. The femoral head was measures and a 45 mm bipolar component was selected. Soft tissue releases on the medial and lateral femoral neck were appropriately done, the leg was externally rotated and lateralized. A Parikh retractor was placed medially and proximally to the greater trochanter this allowed appropriate visualization and exposure of the femoral canal. [place] was then used to remove excess lateral bone. A canal finder and entry broach were used to open the proximal canal. Once we verified we were down the femoral canal we subsequently broached up to a size 37.5 size 1 femur. The appropriate neck was placed in the previously selected head was trialed with a +8 mm neck. Traction was pulled and the hip was reduced with internal rotation. Once it was appropriately reduced and stability was checked. There was minimal shuck, equal leg lengths and appropriate stability with hyperextension and external rotation as well as with 90? flexion and internal rotation. The trial components were then dislocated the proximal femur was again exposed and the components were removed from the wound. The final components were verified and opened. The wound was copiously irrigated out with normal saline. The acetabulum was checked for any residual debris. The final components were cemented into place after the cement was mixed, the canal was appropriately irrigated and dried out and pressurized with cement. After the cement had cured the femoral head was impacted into place. Traction and internal rotation were again used to reduce the hip. After adequate reduction the hip remained stable with appropriate leg lengths. The wound was then copiously irrigated with normal saline once more, and hemostasis was obtained. Closure was then done using #1 Vicryl runner to close the fascia. A 2-0 Vicryl runner was used to close the subcutaneous skin. A 3-0 Monocryl and Steri-Strips were used for final skin closure. A Silverlon dressing was placed. Patient was awakened by anesthesia and transferred to the [facility]. Patient was then transferred to the PACU for recovery. Postoperative plan: Patient will get 24 hours postop antibiotics. Patient will get in-house physical therapy and will be weight-bear as tolerated. Patient will follow up in office in 2 weeks for a wound check and x-rays. Lovenox for DVT prophylaxis for the first 2 weeks. Grafts/Implants Used: [place] Susan - Complications No intraoperative complications - Admit VTE Documentation VTE Present on Admission: No VTE Mechan Device Prophylaxis: SCD's, Thigh High NIDIA Hose VTE Pharm Prophylaxis ordered?: Yes
--- NOTE | 2018-09-09 16:09 | OP.PCM_ITS ---
Report of Operation Date of Procedure: 09/09/18 Pre-Operative Diagnosis: Left displaced subcapital femoral neck fracture Post-Operative Diagnosis: Left displaced subcapital femoral neck fracture Surgery/Procedure Performed:: Left hip cemented hemiarthroplasty Description of Surgical Findings:: Stable hip equal leg lengths surgeon assistant: Maria R Sheikh Type of Anesthesia:: General Anesthesiologist: Terrell Jones Special Medications: 2 g Ancef Specimen's removed: Femoral head fracture Estimated Blood Loss (mL): 75 Fluids Replaced: 1200 mL crystalloid Description of Procedure: Components used: [place] 37.5 size 1 stem, Alex bipolar hemiarthroplasty 45 mm cobalt- chromium femoral head. Alex cobalt chromium 26 mm +8 inner head Brief history operative indications: 83-year-old female who sustained a fall and a left hip subcapital femoral neck fracture which was displaced. Patient was consulted on risks and benefits of hemiarthroplasty including balance to blood loss, DVTs, PEs, nervous damage, infection, and risk of anesthesia the loss of life as well as leg length discrepancies and dislocations. Patient demonstrated and understanding was able to sign informed consent Procedure: On the date of procedure the patient's L hip was marked in the preoperative area. Patient was then taken back to the operating room where anesthesia assumed control of the C-spine and airway and administered anesthetic. Patient was transferred to the operating table and placed in the supine position. The hips were placed the break of the bed and a bump was placed in the sacrum. The L lower extremity was then prepped out in a sterile fashion using chlorhexidine while the surgeon scrubbed. Upon reentering the room the L lower extremity was draped in the standard orthopedic fashion and the incision was marked. A timeout was called and everyone agreed upon the side, the site, the procedure be performed, antibody given, and patient's identity. At this time incision was made through skin, subcutaneous tissue, and fat down to fascia. The fascia was then incised and the TFL was retracted laterally. A retractor was placed on the lateral border of the femoral neck. Attention was directed to the inferior portion of the ap proach and all crossing vessels were identified and appropriately coagulated. A retractor was then placed on the medial portion of the femoral neck. The anterior capsule was then cleared of all soft tissue and then H shaped capsulotomy was made. The retractors were then placed inside the capsule. The femoral neck was identified and a cleanup cut was made. At this time a power corkscrew was used to remove the femoral head. The femoral head was measures and a 45 mm bipolar component was selected. Soft tissue releases on the medial and lateral femoral neck were appropriately done, the leg was externally rotated and lateralized. A Parikh retractor was placed medially and proximally to the greater trochanter this allowed appropriate visualization and exposure of the femoral canal. [place] was then used to remove excess lateral bone. A canal finder and entry broach were used to open the proximal canal. Once we verified we were down the femoral canal we subsequently broached up to a size 37.5 size 1 femur. The appropriate neck was placed in the previously selected head was trialed with a +8 mm neck. Traction was pulled and the hip was reduced with internal rotation. Once it was appropriately reduced and stability was checked. There was minimal shuck, equal leg lengths and appropriate stability with hyperextension and external rotation as well as with 90? flexion and internal rotation. The trial components were then dislocated the proximal femur was again exposed and the components were removed from the wound. The final components were verified and opened. The wound was copiously irrigated out with normal saline. The acetabulum was checked for any residual debris. The final components were cemented into place after the cement was mixed, the canal was appropriately irrigated and dried out and pressurized with cement. After the cement had cured the femoral head was impacted into place. Traction and internal rotation were again used to reduce the hip. After adequate reduction the hip remained stable with appropriate leg lengths. The wound was then copiously irrigated with normal saline once more, and hemostasis was obtained. Closure was then done using #1 Vicryl runner to close the fascia. A 2-0 Vicryl runner was used to close the subcutaneous skin. A 3-0 Monocryl and Steri-Strips were used for final skin closure. A Silverlon dressing was placed. Patient was awakened by anesthesia and transferred to the [facility]. Patient was then transferred to the PACU for recovery. Postoperative plan: Patient will get 24 hours postop antibiotics. Patient will get in-house physical therapy and will be weight-bear as tolerated. Patient will follow up in office in 2 weeks for a wound check and x-rays. Lovenox for DVT prophylaxis for the first 2 weeks. Grafts/Implants Used: [place] - Complications No intraoperative complications - Admit VTE Documentation VTE Present on Admission: No VTE Mechan Device Prophylaxis: SCD's, Thigh High NIDIA Hose VTE Pharm Prophylaxis ordered?: Yes
--- NOTE | 2018-09-09 16:35 | RAD_ITS ---
HISTORY: Status post total left hip arthroplasty XR Hip Unilateral with Pelvis when performed; 2-3 Views TECHNIQUE: 2 views # of images incl. paperwork: 2 COMPARISON: 09/08/2018 FINDINGS: Interval total left hip arthroplasty with satisfactory alignment and no fracture. Expected postoperative changes within the soft tissues. Remainder of the bony pelvis is unremarkable. RAD/Hip Min 2 Views (Portable) IMPRESSION: 1. Interval total left hip arthroplasty with satisfactory positioning. at 2134 Reported and signed by: Hosea Leslie MD Electronically Signed: Hosea Leslie MD at 21:33 EDT Tel , Service support ,
[2018-09-09] MEDS: Ipratropium/Albuterol Sulfate 3 ML AMPUL.NEB INHALATION (16:40)
[2018-09-09] MEDS: Cefazolin 1 GM/50 ML BAG IV (23:35)
[2018-09-09] MEDS: Ensure Surgery 237 ML LIQUID PO (23:39)
[2018-09-09] MEDS: Senna/Docusate Sodium 1 Tablet 2 TABLET PO (23:40)
[2018-09-09] MEDS: Acetaminophen 500 MG Tablet 1000 MG PO (23:40)
[2018-09-10] VITALS (14 sets, daily range): BP systolic 112–139; BP diastolic 69–98; PULSE 59–98; RESP 14–18; TEMP 36.5–36.9; O2SAT 91–99
[2018-09-10] MEDS: 0.9% Normal Saline 1,000 ML 100 ML IV (04:26)
[2018-09-10] MEDS: Cefazolin 1 GM/50 ML BAG IV (05:30)
[2018-09-10] MEDS: Acetaminophen 500 MG Tablet 1000 MG PO ×3 (05:33→22:20)
[2018-09-10] MEDS: Enoxaparin 30 MG/0.3 ML Syringe SC (05:34)
--- NOTE | 2018-09-10 07:28 | PCM.PN.ORT ---
Patient Problems: Active and Suspected Problems Closed left hip fracture (Acute) Cardiac enzymes elevated (Acute) Gastroenteritis (Acute) Subjective: Patient doing well. No acute events overnight. Pain is well controlled. No chest pain or shortness of breath. No calf pain. Patient reports groin pain is improved. Objective: Postop x-rays show well-positioned left hip hemiarthroplasty - Physical Exam General: Alert, Oriented x3, Cooperative Extremities: - - Left lower extremity: Dressing is clean dry and intact Sensations intact to light touch saphenous, sural, superficial peroneal, deep peroneal, and tibial distributions Motors intact EHL, DF, PF calves are soft and supple Vital Signs Temp Pulse Resp BP Pulse Ox 97.7 F L 59 L 14 114/69 94 09/10/18 02:50 09/10/18 04:00 09/10/18 02:50 09/10/18 02:50 09/10/18 02:50 Oxygen Flow Rate (L/min) 2 Oxygen Delivery Method Nasal Cannula Weight: 117 lb 11.629 oz Body Mass Index (BMI) 22.2 Intake and Output for Last 24 Hours 09/08/18 09/09/18 09/10/18 23:59 23:59 23:59 Intake Total 104 / 104 2758 / 2758 2106 / 2106 Output Total 950 / 950 925 / 925 350 / 350 Balance -846 / -846 1833 / 1833 1756 / 1756 Medical Necessity - Tobacco Use Smoking Status: Former smoker Tobacco Use: Non-smoker Assessment/Plan All Active Problems Closed left hip fracture (Acute) Cardiac enzymes elevated (Acute) Gastroenteritis (Acute) Postop day 1 left hip hemiarthroplasty 1. DVT prophylaxis: Patient is high risk due to limited mobility would recommend Lovenox, Xarelto or Eliquis on discharge for 2 weeks followed by a course of aspirin. Would leave twice a final medication up to primary medicine service. 2. Pain control: Pain well controlled at this time. Continue current regimen 3. Physical therapy: Weight-bear as tolerated, activity as tolerated, anterior hip precautions 4. Medical management: Per primary service, labs pending 5. Disposition: Pending patient's ability to improve with physical therapy. Will likely need discharge to rehab or correction upon discharge. [facility] Office:
--- NOTE | 2018-09-10 07:31 | PN.ORTHO_ITS ---
Patient Problems: Active and Suspected Problems Closed left hip fracture (Acute) Cardiac enzymes elevated (Acute) Gastroenteritis (Acute) Subjective: Patient doing well. No acute events overnight. Pain is well controlled. No chest pain or shortness of breath. No calf pain. Patient reports groin pain is improved. Objective: Postop x-rays show well-positioned left hip hemiarthroplasty - Physical Exam General: Alert, Oriented x3, Cooperative Extremities: - - Left lower extremity: Dressing is clean dry and intact Sensations intact to light touch saphenous, sural, superficial peroneal, deep peroneal, and tibial distributions Motors intact EHL, DF, PF calves are soft and supple Vital Signs Temp Pulse Resp BP Pulse Ox 97.7 F L 59 L 14 114/69 94 09/10/18 02:50 09/10/18 04:00 09/10/18 02:50 09/10/18 02:50 09/10/18 02:50 Oxygen Flow Rate (L/min) 2 Oxygen Delivery Method Nasal Cannula Weight: 117 lb 11.629 oz Body Mass Index (BMI) 22.2 Intake and Output for Last 24 Hours 09/08/18 09/09/18 09/10/18 23:59 23:59 23:59 Intake Total 104 / 104 2758 / 2758 2106 / 2106 Output Total 950 / 950 925 / 925 350 / 350 Balance -846 / -846 1833 / 1833 1756 / 1756 Medical Necessity - Tobacco Use Smoking Status: Former smoker Tobacco Use: Non-smoker Assessment/Plan All Active Problems Closed left hip fracture (Acute) Cardiac enzymes elevated (Acute) Gastroenteritis (Acute) Postop day 1 left hip hemiarthroplasty 1. DVT prophylaxis: Patient is high risk due to limited mobility would recommend Lovenox, Xarelto or Eliquis on discharge for 2 weeks followed by a course of aspirin. Would leave twice a final medication up to primary medicine service. 2. Pain control: Pain well controlled at this time. Continue current regimen 3. Physical therapy: Weight-bear as tolerated, activity as tolerated, anterior hip precautions 4. Medical management: Per primary service, labs pending 5. Disposition: Pending patient's ability to improve with physical therapy. Will likely need discharge to rehab or fdc upon discharge. [facility] Office:
[2018-09-10 07:47] LABS: Hematocrit 39.4 % (37-47); Hemoglobin 12.7 g/dl (12.0-15.0); Mean Corp Hgb Conc 32.2 g/gl (32-36); Mean Corpuscular Hgb 30.7 pg (27.0-32.0); Mean Corpuscular Volume 95.2 fL (81-99); Mean Platelet Vol. 10.2 fl (6.2-12.0); Platelet Count 276 K/mm3 (150-450); RBC Distribution Width CV 12.5 % (11.6-14.6); RBC Distribution Width SD 42.3 fl (35.1-43.9); Red Blood Count 4.14 M/mm3 (4.2-5.4); White Blood Count 9.8 K/mm3 (4.4-11.0)
[2018-09-10 07:58] LABS: Scan Indicated on CBC? Y/N NO
[2018-09-10 08:08] LABS: Anion Gap 2 (5-15); BUN 19 mg/dL (7-18); Calcium,Total 7.9 mg/dL (8.5-10.1); Chloride 112 mmol/L (98-107); Creatinine, Serum 0.34 mg/dL (0.55-1.02); EST Glomerular Filtration Rate 196 mL/min (>60); Est Glom Filt Rate - Afr Amer 237 mL/min (>60); Estimated Creatinine Clearance 32.17 ml/min; Glucose 97 mg/dL (74-106); Sodium Level 139 mmol/L (136-145)
[2018-09-10] MEDS: Aspirin 81 MG TAB.CHEW PO (10:36)
[2018-09-10] MEDS: Senna/Docusate Sodium 1 Tablet 2 TABLET PO ×2 (10:36→22:21)
[2018-09-10] MEDS: Famotidine 20 MG Tablet PO (10:37)
[2018-09-10] MEDS: Ensure Surgery 237 ML LIQUID PO ×3 (10:41→16:49)
--- NOTE | 2018-09-10 11:12 | PCM.PN.HOSP ---
Patient Problems: Active and Suspected Problems Closed left hip fracture (Acute) Cardiac enzymes elevated (Acute) Gastroenteritis (Acute) Subjective: Patient seen and examined. She is postop day 1 of left hip hemiarthroplasty. Pain is well controlled. Review of systems otherwise negative. Labs and vitals reviewed. Vitals/I&O's: Vital Signs Temp Pulse Resp BP Pulse Ox 97.9 F 87 18 112/72 92 09/10/18 10:34 09/10/18 10:34 09/10/18 10:34 09/10/18 10:34 09/10/18 10:34 Oxygen Flow Rate (L/min) 2 Oxygen Delivery Method Room Air Weight: 117 lb 11.629 oz Body Mass Index (BMI) 22.2 Intake and Output for Last 24 Hours 09/08/18 09/09/18 09/10/18 23:59 23:59 23:59 Intake Total 104 / 104 2758 / 2758 2106 / 2106 Output Total 950 / 950 925 / 925 350 / 350 Balance -846 / -846 1833 / 1833 1756 / 1756 General: Alert, Oriented x3, Cooperative, No apparent distress HEENT: Atraumatic, PERRLA, EOMI, Normocephalic Oral: Moist Mucosa Neck: Supple, No JVD, Negative Carotid Bruits Lungs: Clear to auscultation, Normal air movement, No rhonchi, No wheeze, No rales Cardiovascular: Regular rate, Regular Rhythm, Normal S1, Normal S2, No murmurs Abdomen: Bowel Sounds Present, Soft, Non Tender, Non-Distended, No Hepato-splenomegaly Extremities: No cyanosis, No edema, Capillary Refill Less than 3 Seconds Skin: No rashes, No breakdown Musculoskeletal: - - intact dressing over left hip Lymphatic: No Cervical, Supraclavicular, or Inguinal Adenopathy Neurological: Cranial nerves II-XII grossly intact Psych/Mental Status: Normal Affect, Appropriate, Alert and oriented to time, place, person, mood and affect Laboratory Results 09/10/18 07:26: WBC 9.8, RBC 4.14 L, Hgb 12.7, Hct 39.4, MCV 95.2, MCH 30.7, MCHC 32.2, RDW 12.5, RDW Differential 42.3, Plt Count 276, MPV 10.2 09/10/18 07:26: Sodium 139, Potassium 4.0, Chloride 112 H, Carbon Dioxide 25.0, Anion Gap 2 L, BUN 19 H, Creatinine 0.34 L, Estim Creat Clear Calc 32.17, Est GFR (MDRD) Af Amer 237, Est GFR (MDRD) Non-Af 196, BUN/Creatinine Ratio 56.0 H, Glucose 97, Calcium 7.9 L Diagnostic Data Chest X-Ray 09/08/18 19:40 IMPRESSION: 1. No acute cardiopulmonary disease. at 2006 Reported and signed by: Hosea Leslie MD Electronically Signed: Hosea Leslie MD at 20:05 EDT Tel , Service support , Hip/Pelvis X-Ray 09/09/18 15:33 IMPRESSION: 1. Intraoperative fluoroscopy provided during total left hip arthroplasty. at 2133 Reported and signed by: Hosea Leslie MD Electronically Signed: Hosea Leslie MD at 21:32 EDT Tel , Service support , Hip X-Ray 09/09/18 16:35 IMPRESSION: 1. Interval total left hip arthroplasty with satisfactory positioning. at 2134 Reported and signed by: Hosea Leslie MD Electronically Signed: Hosea Leslie MD at 21:33 EDT Tel , Service support , Current Medications Acetaminophen (Tylenol) 650 mg PO Q6H PRN PRN PRN Reason: Non-cardiac pain (mod-severe) Acetaminophen (Tylenol) 1,000 mg PO Q8 TIFFANI Last Admin: 09/10/18 05:33 Dose: 1,000 mg Hydrocodone Bitart/Acetaminophen (Crockett 5mg-325mg) 1 - 2 tablet PO Q4H PRN PRN PRN Reason: MOD-SEVERE PAIN (4-10/10) Al Hydroxide/Mg Hydroxide (Mylanta Ii) 15 - 30 ml PO Q4H PRN PRN PRN Reason: INDIGESTION Albuterol Sulfate (Ventolin Aerosols) 2.5 mg INHALATION Q2H PRN PRN PRN Reason: dyspnea, wheezing Aspirin (Aspirin, Baby) 81 mg PO DAILY@0800 [facility] Last Admin: 09/10/18 10:36 Dose: 81 mg Dextrose (D50w Syringe) 0 gm IV X1 PRN; Protocol PRN Reason: Hypoglycemia Enteral Nutritional Formula (Ensure Surgery) 237 ml PO TIDCM [facility] Last Admin: 09/10/18 10:41 Dose: 237 ml Famotidine (Pepcid) 20 mg PO DAILY [facility] Last Admin: 09/10/18 10:37 Dose: 20 mg Glucagon () 1 mg IM .X1 PRN PRN Reason: Hypoglycemia Hydralazine HCl (Apresoline Iv) 10 mg IV Q4H PRN PRN PRN Reason: SBP > 160 Sodium Chloride () 250 mls @ 15 mls/hr IV .[id number] PRN PRN Reason: SALINE FLUSH Magnesium Hydroxide (Milk Of Magnesia) 30 ml PO DAILY PRN PRN PRN Reason: Constipation Melatonin (Melatonin) 3 mg PO QHS PRN PRN PRN Reason: INSOMNIA Last Admin: 09/08/18 23:24 Dose: 3 mg Morphine Sulfate () 1 - 2 mg IV Q4H PRN PRN PRN Reason: PAIN Ondansetron HCl (Zofran) 4 mg IV Q8H PRN PRN PRN Reason: NAUSEA/VOMITING Oxycodone HCl (Oxyir) 2.5 mg PO Q4H PRN PRN PRN Reason: MOD-SEVERE PAIN (4-10/10) Psyllium Hydrophilic Mucilloid (Metamucil) 1 packet PO DAILY PRN PRN PRN Reason: Constipation Senna/Docusate Sodium (Senokot-S, Lorena-Colace) 2 tablet PO BID PRN PRN PRN Reason: Constipation Senna/Docusate Sodium (Senokot-S, Lorena-Colace) 2 tablet PO BID TIFFANI Last Admin: 09/10/18 10:36 Dose: 2 tablet Sodium Chloride () 5 - 15 ml IV UD PRN PRN Reason: SALINE FLUSH Medical Necessity - Tobacco Use Smoking Status: Former smoker Tobacco Use: Non-smoker Assessment/Plan All Active Problems Closed left hip fracture (Acute) Cardiac enzymes elevated (Acute) Gastroenteritis (Acute) 1. Left hip femoral neck fracture s/p mechanical fall s/p left hemiarthroplasty. today is POD 1 pain is well controlled. PT/OT on board on tylenol and norco for pain orthopedic surgery on board incentive spirometry awaiting placement. 2. Elevated troponin: troponins were only mildly elevated at 0.048 on admission, trended down to 0.032 nad 0.031. 2D echo done showed EF of 65%, with stage 1 diastolic dysfunction. no regional wall motion abnormalities. stable. 3. DEbility due to mechanical fall: as under 1. Fall precautions 4. Acute viral gastroenteritis: resolved. DVT prophylaxis: From Lovenox to Eliquis 2.5 g twice daily. Code Visit Inpatient E&M: 62870 Subs Hosp L2
--- NOTE | 2018-09-10 11:16 | PN_ITS ---
Patient Problems: Active and Suspected Problems Closed left hip fracture (Acute) Cardiac enzymes elevated (Acute) Gastroenteritis (Acute) Subjective: Patient seen and examined. She is postop day 1 of left hip hemiarthroplasty. Pain is well controlled. Review of systems otherwise negative. Labs and vitals reviewed. Vitals/I&O's: Vital Signs Temp Pulse Resp BP Pulse Ox 97.9 F 87 18 112/72 92 09/10/18 10:34 09/10/18 10:34 09/10/18 10:34 09/10/18 10:34 09/10/18 10:34 Oxygen Flow Rate (L/min) 2 Oxygen Delivery Method Room Air Weight: 117 lb 11.629 oz Body Mass Index (BMI) 22.2 Intake and Output for Last 24 Hours 09/08/18 09/09/18 09/10/18 23:59 23:59 23:59 Intake Total 104 / 104 2758 / 2758 2106 / 2106 Output Total 950 / 950 925 / 925 350 / 350 Balance -846 / -846 1833 / 1833 1756 / 1756 General: Alert, Oriented x3, Cooperative, No apparent distress HEENT: Atraumatic, PERRLA, EOMI, Normocephalic Oral: Moist Mucosa Neck: Supple, No JVD, Negative Carotid Bruits Lungs: Clear to auscultation, Normal air movement, No rhonchi, No wheeze, No rales Cardiovascular: Regular rate, Regular Rhythm, Normal S1, Normal S2, No murmurs Abdomen: Bowel Sounds Present, Soft, Non Tender, Non-Distended, No Hepato- splenomegaly Extremities: No cyanosis, No edema, Capillary Refill Less than 3 Seconds Skin: No rashes, No breakdown Musculoskeletal: - - intact dressing over left hip Lymphatic: No Cervical, Supraclavicular, or Inguinal Adenopathy Neurological: Cranial nerves II-XII grossly intact Psych/Mental Status: Normal Affect, Appropriate, Alert and oriented to time, place, person, mood and affect Laboratory Results 09/10/18 07:26: WBC 9.8, RBC 4.14 L, Hgb 12.7, Hct 39.4, MCV 95.2, MCH 30.7, MCHC 32.2, RDW 12.5, RDW Differential 42.3, Plt Count 276, MPV 10.2 09/10/18 07:26: Sodium 139, Potassium 4.0, Chloride 112 H, Carbon Dioxide 25.0, Anion Gap 2 L, BUN 19 H, Creatinine 0.34 L, Estim Creat Clear Calc 32.17, Est GFR (MDRD) Af Amer 237, Est GFR (MDRD) Non-Af 196, BUN/Creatinine Ratio 56.0 H, Glucose 97, Calcium 7.9 L Diagnostic Data Chest X-Ray 09/08/18 19:40 IMPRESSION: 1. No acute cardiopulmonary disease. at 2006 Reported and signed by: Hosea Leslie MD Electronically Signed: Hosea Leslie MD at 20:05 EDT Tel , Service support , Hip/Pelvis X-Ray 09/09/18 15:33 IMPRESSION: 1. Intraoperative fluoroscopy provided during total left hip arthroplasty. at 2133 Reported and signed by: Hosea Leslie MD Electronically Signed: Hosea Leslie MD at 21:32 EDT Tel , Service support , Hip X-Ray 09/09/18 16:35 IMPRESSION: 1. Interval total left hip arthroplasty with satisfactory positioning. at 2134 Reported and signed by: Hosea Leslie MD Electronically Signed: Hosea Leslie MD at 21:33 EDT Tel , Service support , Current Medications Acetaminophen (Tylenol) 650 mg PO Q6H PRN PRN PRN Reason: Non-cardiac pain (mod-severe) Acetaminophen (Tylenol) 1,000 mg PO Q8 TIFFANI Last Admin: 09/10/18 05:33 Dose: 1,000 mg Hydrocodone Bitart/Acetaminophen (Leonidas 5mg-325mg) 1 - 2 tablet PO Q4H PRN PRN PRN Reason: MOD-SEVERE PAIN (4-10/10) Al Hydroxide/Mg Hydroxide (Mylanta Ii) 15 - 30 ml PO Q4H PRN PRN PRN Reason: INDIGESTION Albuterol Sulfate (Ventolin Aerosols) 2.5 mg INHALATION Q2H PRN PRN PRN Reason: dyspnea, wheezing Aspirin (Aspirin, Baby) 81 mg PO DAILY@0800 [facility] Last Admin: 09/10/18 10:36 Dose: 81 mg Dextrose (D50w Syringe) 0 gm IV X1 PRN; Protocol PRN Reason: Hypoglycemia Enteral Nutritional Formula (Ensure Surgery) 237 ml PO TIDCM [facility] Last Admin: 09/10/18 10:41 Dose: 237 ml Famotidine (Pepcid) 20 mg PO DAILY [facility] Last Admin: 09/10/18 10:37 Dose: 20 mg Glucagon () 1 mg IM .X1 PRN PRN Reason: Hypoglycemia Hydralazine HCl (Apresoline Iv) 10 mg IV Q4H PRN PRN PRN Reason: SBP > 160 Sodium Chloride () 250 mls @ 15 mls/hr IV .[id number] PRN PRN Reason: SALINE FLUSH Magnesium Hydroxide (Milk Of Magnesia) 30 ml PO DAILY PRN PRN PRN Reason: Constipation Melatonin (Melatonin) 3 mg PO QHS PRN PRN PRN Reason: INSOMNIA Last Admin: 09/08/18 23:24 Dose: 3 mg Morphine Sulfate () 1 - 2 mg IV Q4H PRN PRN PRN Reason: PAIN Ondansetron HCl (Zofran) 4 mg IV Q8H PRN PRN PRN Reason: NAUSEA/VOMITING Oxycodone HCl (Oxyir) 2.5 mg PO Q4H PRN PRN PRN Reason: MOD-SEVERE PAIN (4-10/10) Psyllium Hydrophilic Mucilloid (Metamucil) 1 packet PO DAILY PRN PRN PRN Reason: Constipation Senna/Docusate Sodium (Senokot-S, Lorena-Colace) 2 tablet PO BID PRN PRN PRN Reason: Constipation Senna/Docusate Sodium (Senokot-S, Lorena-Colace) 2 tablet PO BID TIFFANI Last Admin: 09/10/18 10:36 Dose: 2 tablet Sodium Chloride () 5 - 15 ml IV UD PRN PRN Reason: SALINE FLUSH Medical Necessity - Tobacco Use Smoking Status: Former smoker Tobacco Use: Non-smoker Assessment/Plan All Active Problems Closed left hip fracture (Acute) Cardiac enzymes elevated (Acute) Gastroenteritis (Acute) 1. Left hip femoral neck fracture s/p mechanical fall * s/p left hemiarthroplasty. today is POD 1 * pain is well controlled. * PT/OT on board * on tylenol and norco for pain * orthopedic surgery on board * incentive spirometry * awaiting placement. * 2. Elevated troponin: * troponins were only mildly elevated at 0.048 on admission, trended down to 0.032 nad 0.031. * 2D echo done showed EF of 65%, with stage 1 diastolic dysfunction. no regional wall motion abnormalities. * stable. * 3. DEbility due to mechanical fall: as under 1. Fall precautions 4. Acute viral gastroenteritis: resolved. DVT prophylaxis: From Lovenox to Eliquis 2.5 g twice daily. Code Visit Inpatient E&M: 08858 Subs Hosp L2
--- NOTE | 2018-09-10 16:35 | NURSING ---
SITTING IN CHAIR. PT WAS VERY AFRAID TO LET JUST ONE PERSON ASSIST HER SO THIS NURSE AND TANNER [employer]ARY DRUM CONTINUOUS PROCESS ASSISTED HER TO GET OUT OF CHAIR. PT AT FIRST REFUSED TO WALK TO BATHROOM. WANTED TO GET IN BED RIGHT AWAY. WITH SOME ENCOURAGEMENT, PT WALKED WITH 2 ASSIST TO THE BATHROOM AND IS ATTEMPTING TO VOID SINCE NO VOID SINCE SHE WAS ST.CATHED THIS MORNING AT 7AM.
--- NOTE | 2018-09-10 17:50 | NURSING ---
poor output, only voided 100cc and bladder scaned post Void for 53. New order to resume IVF.
[2018-09-10] MEDS: 0.9% NaCl Peripheral Flush Adult/Peds IV (18:55)
[2018-09-10] MEDS: 0.9% Normal Saline 1,000 ML 125 ML IV (18:55)
--- NOTE | 2018-09-10 19:01 | NURSING ---
RE-APPLIED OXYGEN AT THIS TIME PT WAS SLEEPING AND HER SPO2 ON RA SLEEPING WAS 88-90%. sP02 CAME UP TO 95% ON 3l nc.
[2018-09-10] MEDS: APIXABAN 2.5 MG TABLET PO (22:21)
[2018-09-10] MEDS: Menthol/Lanolin/Calamine/Znox 113 GM Tube 1 APPLIC TOPICAL (22:25)
[2018-09-11] VITALS (7 sets, daily range): BP systolic 105–121; BP diastolic 57–87; PULSE 62–98; RESP 16–18; TEMP 36.8–37; O2SAT 93–98
[2018-09-11] MEDS: 0.9% Normal Saline 1,000 ML 125 ML IV (02:54)
[2018-09-11] MEDS: Acetaminophen 500 MG Tablet 1000 MG PO ×2 (06:50→15:07)
[2018-09-11 07:05] LABS: Hematocrit 32.9 % (37-47); Hemoglobin 10.7 g/dl (12.0-15.0); Mean Corp Hgb Conc 32.5 g/gl (32-36); Mean Corpuscular Hgb 30.8 pg (27.0-32.0); Mean Corpuscular Volume 94.8 fL (81-99); Platelet Count 246 K/mm3 (150-450); RBC Distribution Width CV 12.8 % (11.6-14.6); RBC Distribution Width SD 44.3 fl (35.1-43.9); Red Blood Count 3.47 M/mm3 (4.2-5.4); White Blood Count 8.4 K/mm3 (4.4-11.0)
[2018-09-11 07:15] LABS: Scan Indicated on CBC? Y/N NO
[2018-09-11 07:45] LABS: Anion Gap 5 (5-15); BUN 12 mg/dL (7-18); BUN/Creat Ratio 76.4 RATIO (10-20); Calcium,Total 7.7 mg/dL (8.5-10.1); Chloride 114 mmol/L (98-107); Creatinine, Serum 0.16 mg/dL (0.55-1.02); EST Glomerular Filtration Rate 476 mL/min (>60); Est Glom Filt Rate - Afr Amer 576 mL/min (>60); Estimated Creatinine Clearance 32.17 ml/min; Glucose 89 mg/dL (74-106); Potassium 3.5 mmol/L (3.5-5.1); Sodium Level 144 mmol/L (136-145)
[2018-09-11] MEDS: Senna/Docusate Sodium 1 Tablet 2 TABLET PO (09:41)
[2018-09-11] MEDS: Aspirin 81 MG TAB.CHEW PO (09:41)
[2018-09-11] MEDS: Ensure Surgery 237 ML LIQUID PO (09:41)
[2018-09-11] MEDS: Famotidine 20 MG Tablet PO (09:41)
[2018-09-11] MEDS: APIXABAN 2.5 MG TABLET PO (09:42)
[2018-09-11] MEDS: Menthol/Lanolin/Calamine/Znox 113 GM Tube 1 APPLIC TOPICAL (09:42)
--- NOTE | 2018-09-11 11:29 | PCM.TXEXTCAR ---
- Diet 09/10/18 05:57 Diet: Regular Diet Is pt able to select menu?: Yes - Routine Orders/Code Status Enema Type: Fleetz Enema Frequency: Daily PRN Suppository Type: Dulcolax 10mg Suppository Frequency: Daily PRN O2 Frequency: PRN Keep PO Greater than or Equal to (%): 90 - Wound(s) R ELBOW Wound Type: Abrasion L ELBOW Wound Type: Abrasion COCCYX Wound Type: Abrasion LT HIP Wound Type: Surgical Incision Lt buttock Wound Type: Abrasion - Therapies Weight Bearing: Weight bearing as tolerated Physical Therapy: Eval and Treat Occupational Therapy: Eval and Treat - Allergies/Procedures Done in Hospital Allergies/Adverse Reactions: Allergies latex Adverse Reaction (Verified 09/08/18 19:12) Other ALL ATB Adverse Reaction (Uncoded 09/08/18 19:16) Other BLOCKED HER BRAIN Procedures: None - Type of Care/Length of Stay Estimated LOS: Convalescent Care Less Than 30 days Type of Care Needed: Skilled Rehab Potential: Fair Prognosis: Fair - Additional Orders/Day of Discharge Additional Orders: to have eliquis for DVT prophylaxis for 2 weeks, then to continue with aspirin. Day of Discharge: 09/11/18 - Follow Up Care Primary Care Physician: Rodney Garcia III, MD [Primary Care Provider] - Please follow up with your Primary Care Physician in: one week Please Follow Up With: Shalom Sapp MD When: 1-2 weeks
--- NOTE | 2018-09-11 12:36 | PCM.DC.SUM ---
Discharge Date and Diagnosis - Problem List Patient Problems: Active and Suspected Problems Closed left hip fracture (Acute) Cardiac enzymes elevated (Acute) Gastroenteritis (Acute) Date of Admission: 09/08/18 Date of Discharge: 09/11/18 - Primary Discharge Diagnosis Active and Suspected Problems Closed left hip fracture (Acute) Cardiac enzymes elevated (Acute) Gastroenteritis (Acute) Hospital Course and Treatment Imaging Results: Diagnostic Data Chest X-Ray 09/08/18 19:40 IMPRESSION: 1. No acute cardiopulmonary disease. at 2006 Reported and signed by: Hosea Leslie MD Electronically Signed: Hosea Leslie MD at 20:05 EDT Tel , Service support , Hip/Pelvis X-Ray 09/09/18 15:33 IMPRESSION: 1. Intraoperative fluoroscopy provided during total left hip arthroplasty. at 2133 Reported and signed by: Hosea Leslie MD Electronically Signed: Hosea Leslie MD at 21:32 EDT Tel , Service support , Hip X-Ray 09/09/18 16:35 IMPRESSION: 1. Interval total left hip arthroplasty with satisfactory positioning. at 2134 Reported and signed by: Hosea Leslie MD Electronically Signed: Hosea Leslie MD at 21:33 EDT Tel , Service support , orthopedic surgery- Dr Sapp Operations: total hip replacement - left Procedures: None, 2-D Echocardiogram Summary of Care Provided: The patient is a 83 year old F with no significant past medical history. She was admitted on 09/08/2018 through the ED with a complaint of diarrhea with resultant fatigue and a subsequent fall. Subsequently had left lower extremity pain and was unable to get up and lay on the floor for several days. She was eventually able to reach the phone for help and call the EMS. Vitals were essentially stable and plain x-ray of the left hip showed a left subcapital femoral neck fracture with moderate displacement of the distal fragment. Chest x-ray showed no cardiopulmonary process and EKG showed sinus rhythm with no acute ST changes. She was admitted to be managed for left hip fracture due to mechanical fall as well as general debility due to mechanical fall. Orthopedic surgery was consulted. Troponins were indeterminate as they were initially 0.048 and then trended down to 0.031 and was thought to be due to demand ischemia. Patient had a 2D echo which showed EF of 65% with stage I diastolic dysfunction and no regional wall motion abnormalities. She had left hip hemiarthroplasty on 09/12/2018. Tolerated procedure well. Postop stage was uncomplicated and she remained stable. She initially required some oxygen was transitioned off oxygen successfully. Patient remained stable and was discharged to the transitional care unit on 09/11/2018 for intensive rehab. She was discharged with a prescription for p.o. Eliquis 2.5 mg twice daily for 2 weeks for DVT prophylaxis. Per orthopedics, she is to continue with aspirin subsequently. She is to follow-up with her primary care doctor and orthopedic surgery. Patient seen and examined prior to discharge. She had no complaints and felt well. Review of systems otherwise negative. Labs and vitals reviewed. Home medications reviewed and reconciled. o/e: Vital Signs Height 5 ft 1.02 in Weight: 117 lb 11.629 oz Weight in Pounds 117.7 lbs Pulse Ox 93 Temperature 98.5 F Pulse Rate 98 Respiratory Rate 16 Blood Pressure 105/87 Blood Pressure Position Sitting [] General: Alert, Oriented x3, Cooperative, No apparent distress HEENT: Atraumatic, PERRLA, EOMI, Normocephalic Oral: Moist Mucosa Neck: Supple, No JVD, Negative Carotid Bruits Lungs: Clear to auscultation, Normal air movement, No rhonchi, No wheeze, No rales Cardiovascular: Regular rate, Regular Rhythm, Normal S1, Normal S2, No murmurs Abdomen: Bowel Sounds Present, Soft, Non Tender, Non-Distended, No Hepato-splenomegaly Extremities: No cyanosis, No edema, Capillary Refill Less than 3 Seconds Skin: No rashes, No breakdown Musculoskeletal: - - intact dressing over left hip Lymphatic: No Cervical, Supraclavicular, or Inguinal Adenopathy Neurological: Cranial nerves II-XII grossly intact Psych/Mental Status: Normal Affect, Appropriate, Alert and oriented to time, place, person, mood and affect Plan as above. Patient Problems: Active and Suspected Problems Closed left hip fracture (Acute) Cardiac enzymes elevated (Acute) Gastroenteritis (Acute) - Physical Exam Vital Signs Temp Pulse Resp BP Pulse Ox 98.5 F 98 16 105/87 H 93 09/11/18 09:53 09/11/18 09:53 09/11/18 09:53 09/11/18 09:53 09/11/18 09:53 Oxygen Flow Rate (L/min) 2.5 Oxygen Delivery Method Room Air Weight: 117 lb 11.629 oz Body Mass Index (BMI) 22.2 Intake and Output for Last 24 Hours 09/09/18 09/10/18 09/11/18 23:59 23:59 23:59 Intake Total 2758 / 2758 3629 / 3629 1616 / 1616 Output Total 925 / 925 450 / 450 350 / 350 Balance 1833 / 1833 3179 / 3179 1266 / 1266 Laboratory Tests Past 24 Hrs 09/11/18 09/11/18 06:11 06:11 WBC 8.4 RBC 3.47 L Hgb 10.7 L Hct 32.9 L MCV 94.8 MCH 30.8 MCHC 32.5 RDW 12.8 RDW Differential 44.3 H Plt Count 246 MPV 10.0 Sodium 144 Potassium 3.5 Chloride 114 H Carbon Dioxide 25.0 Anion Gap 5 BUN 12 Creatinine 0.16 L Estim Creat Clear Calc 32.17 Est GFR (MDRD) Af Amer 576 Est GFR (MDRD) Non-Af 476 BUN/Creatinine Ratio 76.4 H Glucose 89 Calcium 7.7 L Discharge Diet: Low fat/ Low Cholesterol Home Medications: Medications to take at Discharge Ibuprofen 200 mg PO BID 09/08/18 Vit A/Vit C/Vit E/Zinc/Copper [Preservision Areds Softgel] 2 tab PO DAILY 09/08/18 Vitamin B-12 1 tab PO DAILY 09/08/18 Apixaban [Eliquis] 2.5 mg PO BID #28 tab 09/11/18 Following Prescrptions Were Given to Patient: Apixaban [Eliquis] 2.5 mg PO BID #28 tab Primary Care Physician: Rodney Garcia III, MD [Primary Care Provider] - Please follow up with your Primary Care Physician in: one week Please Follow Up With: Shalom Sapp MD When: 1-2 weeks Disposition: Shelter facility Minutes spent on discharge:: 40 Patient Condition:: Stable Medical Necessity - Tobacco Use Smoking Status: Former smoker Tobacco Use: Non-smoker Meaningful Use Info Meaningful Use Diagnoses (Choose all that apply): None applicable Code Visit Inpatient E&M: 67370 Disch Hosp
--- NOTE | 2018-09-11 13:08 | PCM.PN.ORT ---
Patient Problems: Active and Suspected Problems Closed left hip fracture (Acute) Cardiac enzymes elevated (Acute) Gastroenteritis (Acute) Subjective: No acute events overnight. Patient plan for discharge to TCU today. Patient seems to be unaware of the discharge plan and does not recognize me again this morning. Spent time reorienting the patient and discussing the postoperative plan. She does have some decreased oxygenation which is being treated appropriately. - Physical Exam General: Alert, Cooperative Extremities: - - Right lower extremity: Dressing is clean dry and intact Sensations intact to light touch saphenous, sural, superficial peroneal, deep peroneal, and tibial distributions Motors intact EHL, DF, PF calves are soft and supple Vital Signs Temp Pulse Resp BP Pulse Ox 98.5 F 98 16 105/87 H 93 09/11/18 09:53 09/11/18 09:53 09/11/18 09:53 09/11/18 09:53 09/11/18 09:53 Oxygen Flow Rate (L/min) 2.5 Oxygen Delivery Method Room Air Weight: 117 lb 11.629 oz Body Mass Index (BMI) 22.2 Intake and Output for Last 24 Hours 09/09/18 09/10/18 09/11/18 23:59 23:59 23:59 Intake Total 2758 / 2758 3629 / 3629 1616 / 1616 Output Total 925 / 925 450 / 450 350 / 350 Balance 1833 / 1833 3179 / 3179 1266 / 1266 Laboratory Tests Past 24 Hrs 09/11/18 09/11/18 06:11 06:11 WBC 8.4 RBC 3.47 L Hgb 10.7 L Hct 32.9 L MCV 94.8 MCH 30.8 MCHC 32.5 RDW 12.8 RDW Differential 44.3 H Plt Count 246 MPV 10.0 Sodium 144 Potassium 3.5 Chloride 114 H Carbon Dioxide 25.0 Anion Gap 5 BUN 12 Creatinine 0.16 L Estim Creat Clear Calc 32.17 Est GFR (MDRD) Af Amer 576 Est GFR (MDRD) Non-Af 476 BUN/Creatinine Ratio 76.4 H Glucose 89 Calcium 7.7 L Medical Necessity - Tobacco Use Smoking Status: Former smoker Tobacco Use: Non-smoker Assessment/Plan All Active Problems Closed left hip fracture (Acute) Cardiac enzymes elevated (Acute) Gastroenteritis (Acute) Postop day 2 left hip hemiarthroplasty 1. DVT prophylaxis: Patient is high risk due to limited mobility would recommend Lovenox, Xarelto or Eliquis on discharge for 2 weeks followed by a course of aspirin. Would leave twice a final medication up to primary medicine service. 2. Pain control: Pain well controlled at this time. Continue current regimen 3. Physical therapy: Weight-bear as tolerated, activity as tolerated, anterior hip precautions 4. Medical management: Per primary service, labs pending 5. Disposition: Pending patient's ability to improve with physical therapy. Will likely need discharge to rehab or detention upon discharge. Dressing can be removed 5 days postoperatively. Suture tails can be removed 10 days postoperatively. Patient should follow-up in the office in 2 weeks. Continue with high risk anticoagulation for 2 weeks followed by 81 mg aspirin twice daily for an additional 2 weeks. Patient is unable to follow-up in the office in 2 weeks and wound looks appropriate okay to repeat x-rays and call the office for my review. [facility] Office:
--- NOTE | 2018-09-11 14:54 | NURSING ---
Spo2 while walking was 94% on RA. Dr. Carl zepeda to send to TCU. REport given to Yue in TCU at this time.
== END 2018-09-11 15:40 | disposition skilled nursing facility (03) | DRG 470 ==
LOC: ED 21:04 → MS3 21:32
PROVIDERS: Specialist; Admitting Provider Family Medicine; Emergency Provider Emergency Medicine; Family Provider Family Medicine; PCP Family Medicine; Referring Provider Family Medicine; Visit Provider Student in an Organized Health Care Education/Training Program
PROC: 0SRS0J9 Replacement of Left Hip Joint, Femoral Surface with Synthetic Substitute, Cemented, Open Approach (ICD-10-PCS; CPT 27125; 2018-09-09 07:05)
DX: S72.012A Unspecified intracapsular fracture of left femur, initial encounter for closed fracture (principal); W19.XXXA Unspecified fall, initial encounter; R74.8 Abnormal levels of other serum enzymes
CPT/HCPCS: 36415; 51702; 71045; 73501; 73502; 76000; 80048; 80061; 80076; 81001; 82550; 83690; 83735; 83880; 84443; 84484; 85025; 85027; 85610; 85730; 86850; 86900; 88305; 88311; 93005; 93306; 94640; 97162; 97166; 97530; 99285; C1776; J7030; J7120; Q9957; A4216; J2405

== ENCOUNTER 2018-09-11 15:55 | Inpatient (IN) | payer MEDICARE, BC, SELFPAY ==
[2018-09-09 13:01] VITALS: BMI 22.2
[2018-09-11 16:18] VITALS: BP 114/66; PULSE 74; RESP 18; TEMP 37; O2SAT 97; BMI 24.7
[2018-09-11 16:25] VITALS: BP 114/66; PULSE 74; RESP 18; TEMP 37; O2SAT 97
--- NOTE | 2018-09-11 16:45 | PCM.HP.STD ---
Problem List (1) Debility Status: Acute (2) Fall Status: Acute (3) Troponin I above reference range Status: Acute (4) Closed left hip fracture Status: Acute Qualifiers: History of Present Illness Date of Admission: 09/11/18 Chief Complaint: Here for rehabilitation, strengthening, prior to discharge home alone. The patient is a 83 year old Female with below past medical history presented to [facility] Emergency Department 09/08/2018 with weakness. 09/08/2018 Chest X-ray negative. 09/08/2018 X-ray left hip showed left hip fracture. Fall, left hip pain. IV fluids given, patient declined pain medication. 09/08/2018 Admit to Hospital. IV Fluids, pain control, preoperative evaluation. Troponin indeterminate. 09/09/2018 Echo Normal LV size. Left ventricular systolic function normal. EF 65%. Stage 1 diastolic dysfunction. 09/09/2018 Dr. Sapp recommended left hip hemiarthroplasty. 09/09/2018 Dr. Sapp performed left hip cemented hemiarthroplasty. Indeterminate troponin thought secondary to demand ischemia. Postoperative oxygen tapered off. Eliquis 2.5MG twice daily x 2 weeks for DVT prophylaxis, then aspirin, thru 09/26/2018. 09/11/2018 Admit to TCU with debility, here for rehabilitation, strengthening, prior to discharge home alone. 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 Review of Systems Constitutional: Denies: Chills, Fever, Weight Change HEENT: Denies: Head Aches, Sinus Congestion, Sinus Drainage Cardiovascular: Denies: Chest Pain, Palpitations Respiratory: Denies: Cough, Shortness of breath at rest, Sputum production Gastrointestinal: Denies: Abdominal Pain, Nausea, Vomiting Genitourinary: Denies: Dysuria Musculoskeletal: Denies: Joint Pain, Joint Tenderness Skin: Denies: Rash, Wounds Neurological: Denies: Numbness, Tingling, Focal weakness Psychiatric: Denies: Anxiety, Depression, Homicidal Ideations, Suicidal Ideations Hematologic/ Lymphatic: Denies: Easy Bruising, Easy Bleeding VTE Information - Inpt Only VTE Present on Admission: No VTE Mechan Device Prophylaxis: Knee High NIDIA Hose VTE Pharm Prophylaxis ordered?: Yes Patient Problems: Active and Suspected Problems Debility (Acute) Fall (Acute) Troponin I above reference range (Acute) - Physical Exam General: Alert, Oriented x3, Cooperative HEENT: Atraumatic, PERRLA, EOMI, Normocephalic Neck: Supple, No JVD, Negative Carotid Bruits Lungs: Clear to auscultation, Normal air movement Cardiovascular: Regular rate, No murmurs Abdomen: Bowel Sounds Present, Soft, Non Tender Extremities: No edema, Capillary Refill Less than 3 Seconds Skin: No rashes, No breakdown Musculoskeletal: No Tenderness to Palpation of Joints or Extremities Neurological: Cranial nerves II-XII grossly intact Psych/Mental Status: Normal Affect, Appropriate Vital Signs Temp Pulse Resp BP Pulse Ox 98.6 F 74 18 114/66 97 09/11/18 16:25 09/11/18 16:25 09/11/18 16:25 09/11/18 16:25 09/11/18 16:25 Oxygen Delivery Method Room Air Body Mass Index (BMI) 22.2 Assessment/Plan All Active Problems Closed left hip fracture (Acute) Cardiac enzymes elevated (Acute) Gastroenteritis (Acute) Debility (Acute) Fall (Acute) Troponin I above reference range (Acute) 83 year old female with below past medical history hospitalized for left hip fracture, underwent left hip cemented hemiarthroplasty 09/09/[address] Sapp, admitted to TCU with debility, here for rehabilitation, strengthening, prior to discharge home alone. Debility - PT/OT. Pain - Tylenol 1000MG Q6H PRN mild pain, Ibuprofen 200MG BID, Tramadol 50MG Q6H PRN moderate pain, Oxycodone 5MG Q4H PRN severe pain. Bowel - Miralax 17GM daily, Senna/colace 1 tablet BID, Dulcolax 10MG daily PRN. Pneumonia vaccination - Administer Prevnar 13 and/or Pneumovax 23 as necessary. DVT prophylaxis - Eliquis 2.5MG BID thru 09/26/2018. CV prophylaxis - Aspirin 81MG daily. Vitamin B12 deficiency - B12 500MCG daily. Nutrition - Ensure Clear 120ML TIDCM, MVI daily.
--- NOTE | 2018-09-11 16:50 | HP.PCM_ITS ---
Problem List (1) Debility Status: Acute (2) Fall Status: Acute (3) Troponin I above reference range Status: Acute (4) Closed left hip fracture Status: Acute Qualifiers: History of Present Illness Date of Admission: 09/11/18 Chief Complaint: Here for rehabilitation, strengthening, prior to discharge home alone. The patient is a 83 year old Female with below past medical history presented to [facility] Emergency Department 09/08/2018 with weakness. 09/08/2018 Chest X-ray negative. 09/08/2018 X-ray left hip showed left hip fracture. Fall, left hip pain. IV fluids given, patient declined pain medication. 09/08/2018 Admit to Hospital. IV Fluids, pain control, preoperative evaluation. Troponin indeterminate. 09/09/2018 Echo Normal LV size. Left ventricular systolic function normal. EF 65%. Stage 1 diastolic dysfunction. 09/09/2018 Dr. Sapp recommended left hip hemiarthroplasty. 09/09/2018 Dr. Sapp performed left hip cemented hemiarthroplasty. Indeterminate troponin thought secondary to demand ischemia. Postoperative oxygen tapered off. Eliquis 2.5MG twice daily x 2 weeks for DVT prophylaxis, then aspirin, thru 09/26/2018. 09/11/2018 Admit to TCU with debility, here for rehabilitation, strengthening, prior to discharge home alone. 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 Review of Systems Constitutional: Denies: Chills, Fever, Weight Change HEENT: Denies: Head Aches, Sinus Congestion, Sinus Drainage Cardiovascular: Denies: Chest Pain, Palpitations Respiratory: Denies: Cough, Shortness of breath at rest, Sputum production Gastrointestinal: Denies: Abdominal Pain, Nausea, Vomiting Genitourinary: Denies: Dysuria Musculoskeletal: Denies: Joint Pain, Joint Tenderness Skin: Denies: Rash, Wounds Neurological: Denies: Numbness, Tingling, Focal weakness Psychiatric: Denies: Anxiety, Depression, Homicidal Ideations, Suicidal Ideations Hematologic/ Lymphatic: Denies: Easy Bruising, Easy Bleeding VTE Information - Inpt Only VTE Present on Admission: No VTE Mechan Device Prophylaxis: Knee High NIDIA Hose VTE Pharm Prophylaxis ordered?: Yes Patient Problems: Active and Suspected Problems Debility (Acute) Fall (Acute) Troponin I above reference range (Acute) - Physical Exam General: Alert, Oriented x3, Cooperative HEENT: Atraumatic, PERRLA, EOMI, Normocephalic Neck: Supple, No JVD, Negative Carotid Bruits Lungs: Clear to auscultation, Normal air movement Cardiovascular: Regular rate, No murmurs Abdomen: Bowel Sounds Present, Soft, Non Tender Extremities: No edema, Capillary Refill Less than 3 Seconds Skin: No rashes, No breakdown Musculoskeletal: No Tenderness to Palpation of Joints or Extremities Neurological: Cranial nerves II-XII grossly intact Psych/Mental Status: Normal Affect, Appropriate Vital Signs Temp Pulse Resp BP Pulse Ox 98.6 F 74 18 114/66 97 09/11/18 16:25 09/11/18 16:25 09/11/18 16:25 09/11/18 16:25 09/11/18 16:25 Oxygen Delivery Method Room Air Body Mass Index (BMI) 22.2 Assessment/Plan All Active Problems Closed left hip fracture (Acute) Cardiac enzymes elevated (Acute) Gastroenteritis (Acute) Debility (Acute) Fall (Acute) Troponin I above reference range (Acute) 83 year old female with below past medical history hospitalized for left hip fracture, underwent left hip cemented hemiarthroplasty 09/09/[address] Sapp, admitted to TCU with debility, here for rehabilitation, strengthening, prior to discharge home alone. * Debility - PT/OT. * Pain - Tylenol 1000MG Q6H PRN mild pain, Ibuprofen 200MG BID, Tramadol 50MG Q6H PRN moderate pain, Oxycodone 5MG Q4H PRN severe pain. * Bowel - Miralax 17GM daily, Senna/colace 1 tablet BID, Dulcolax 10MG daily PRN. * Pneumonia vaccination - Administer Prevnar 13 and/or Pneumovax 23 as necessary. * DVT prophylaxis - Eliquis 2.5MG BID thru 09/26/2018. * CV prophylaxis - Aspirin 81MG daily. * Vitamin B12 deficiency - B12 500MCG daily. * Nutrition - Ensure Clear 120ML TIDCM, MVI daily.
--- NOTE | 2018-09-11 16:51 | NURSING ---
Patient admitted to room 3 from MS3 via bed, patient oriented to room and call light system explained. Patient came with large black and white zebra print purse with cheetah print wallet. $36 jean and multiple credit cards in wallet, patient refused to have wallet locked up in safe.
[2018-09-11] MEDS: APIXABAN 2.5 MG TABLET PO (18:09)
[2018-09-11] MEDS: Ensure Clear 120 ML Liquid PO (18:09)
[2018-09-11] MEDS: Ibuprofen 200 MG Tablet PO (18:09)
[2018-09-11] MEDS: Senna/Docusate Sodium 1 Tablet PO (18:10)
--- NOTE | 2018-09-11 18:10 | NURSING ---
New order for magnesium citrate 300mL x1 now.
[2018-09-11] MEDS: Magnesium Citrate 300 ML PO (21:00)
[2018-09-12 05:52] LABS: Absolute Lymphocyte Count 2.03 X10^3/ul (0.83-4.51); Absolute Neutrophil Count 5.3 X10^3/uL (2.0-7.7); Basophil# 0.01 X10^3/uL; Basophil% 0.1 % (0-1); Eosinophil# 0.48 X10^3/uL; Eosinophils% 5.6 % (0-5); Hematocrit 35.6 % (37-47); Hemoglobin 11.8 g/dl (12.0-15.0); Lymphocyte # 2.03 X10^3/ul (4.0); Lymphocyte % 23.8 % (19-41); Mean Corp Hgb Conc 33.1 g/gl (32-36); Mean Corpuscular Hgb 31.1 pg (27.0-32.0); Mean Corpuscular Volume 93.7 fL (81-99); Mean Platelet Vol. 10.1 fl (6.2-12.0); Monocyte# 0.73 X10^3/uL; Monocyte% 8.5 % (0-10); Neutrophil # 5.25 X10^3/uL (2.7-7.7); Neutrophil % 61.5 % (47-70); Platelet Count 262 K/mm3 (150-450); RBC Distribution Width CV 12.6 % (11.6-14.6); RBC Distribution Width SD 41.9 fl (35.1-43.9); White Blood Count 8.5 K/mm3 (4.4-11.0)
[2018-09-12 05:53] LABS: POSITIVE COUNT NO; POSITIVE DIFFERENTIAL NO; POSITIVE MORPHOLOGY NO
[2018-09-12] MEDS: Senna/Docusate Sodium 1 Tablet PO ×2 (05:55→17:32)
[2018-09-12] MEDS: Ibuprofen 200 MG Tablet PO ×2 (05:56→17:32)
[2018-09-12] MEDS: Polyethylene Glycol 3350 17 GM PACKET PO (05:56)
[2018-09-12] MEDS: Cyanocobalamin 500 MCG Tablet PO (05:56)
[2018-09-12] MEDS: APIXABAN 2.5 MG TABLET PO ×2 (05:56→17:32)
[2018-09-12 06:21] LABS: Anion Gap 7 (5-15); BUN 10 mg/dL (7-18); BUN/Creat Ratio 34.7 RATIO (10-20); Calcium,Total 7.9 mg/dL (8.5-10.1); Chloride 109 mmol/L (98-107); Creatinine, Serum 0.29 mg/dL (0.55-1.02); EST Glomerular Filtration Rate 236 mL/min (>60); Est Glom Filt Rate - Afr Amer 286 mL/min (>60); Estimated Creatinine Clearance 32.17 ml/min; Glucose 91 mg/dL (74-106); Potassium 3.5 mmol/L (3.5-5.1); Sodium Level 143 mmol/L (136-145)
[2018-09-12] MEDS: Multivitamins,Ther W-Minerals Tablet 1 TABLET PO (07:59)
[2018-09-12] MEDS: Ensure Clear 120 ML Liquid PO ×3 (08:01→17:31)
[2018-09-12] MEDS: Tuberculin,Purif.prot.deriv. 50 TU/ML Vial 5 ML ID (10:38)
--- NOTE | 2018-09-12 10:52 | NURSING ---
THIS NURSE NOTICED PT RIGHT KNEE BLEEDING. PT STATED IT WAS FROM HER FALLING AT HOME. SCAB TO KNEE,THIS NURSE PLACED BANDAID TO KNEE AND BOTH ELBOWS WITH SCABS. ALSO NOTICED LEFT ARM EDEMA +1 NONPITTING,IV STILL IN . REPORTED TO ANTHONY RODRIGUEZ. PER ANTHONY RODRIGUEZ D/C IV IN PT LEFT AC.
[2018-09-12] MEDS: Acetaminophen 500 MG Tablet 1000 MG PO (12:51)
[2018-09-12 15:05] VITALS: BP 104/67; PULSE 94; RESP 17; TEMP 37.1; O2SAT 93
[2018-09-12] MEDS: Bisacodyl 5 MG Tablet 10 MG PO (17:32)
[2018-09-12 20:00] VITALS: PULSE 76; RESP 18; O2SAT 97
[2018-09-13] MEDS: Ibuprofen 200 MG Tablet PO ×2 (04:49→17:06)
[2018-09-13] MEDS: Polyethylene Glycol 3350 17 GM PACKET PO (04:49)
[2018-09-13] MEDS: Cyanocobalamin 500 MCG Tablet PO (04:49)
[2018-09-13] MEDS: APIXABAN 2.5 MG TABLET PO ×2 (04:50→17:07)
[2018-09-13] MEDS: Senna/Docusate Sodium 1 Tablet PO ×2 (04:50→17:07)
[2018-09-13 05:54] LABS: Absolute Lymphocyte Count 2.15 X10^3/ul (0.83-4.51); Absolute Neutrophil Count 4.9 X10^3/uL (2.0-7.7); Basophil# 0.02 X10^3/uL; Basophil% 0.2 % (0-1); Eosinophil# 0.54 X10^3/uL; Eosinophils% 6.4 % (0-5); Hematocrit 38.6 % (37-47); Hemoglobin 12.6 g/dl (12.0-15.0); Lymphocyte # 2.15 X10^3/ul (4.0); Lymphocyte % 25.3 % (19-41); Mean Corp Hgb Conc 32.6 g/gl (32-36); Mean Corpuscular Hgb 30.7 pg (27.0-32.0); Mean Corpuscular Volume 93.9 fL (81-99); Mean Platelet Vol. 10.1 fl (6.2-12.0); Monocyte# 0.79 X10^3/uL; Monocyte% 9.3 % (0-10); Neutrophil # 4.93 X10^3/uL (2.7-7.7); Platelet Count 291 K/mm3 (150-450); RBC Distribution Width CV 12.8 % (11.6-14.6); RBC Distribution Width SD 42.7 fl (35.1-43.9); Red Blood Count 4.11 M/mm3 (4.2-5.4); White Blood Count 8.5 K/mm3 (4.4-11.0)
[2018-09-13 06:01] LABS: POSITIVE COUNT NO; POSITIVE DIFFERENTIAL NO; POSITIVE MORPHOLOGY NO
[2018-09-13 06:10] LABS: Anion Gap 7 (5-15); BUN 11 mg/dL (7-18); Calcium,Total 8.1 mg/dL (8.5-10.1); Chloride 109 mmol/L (98-107); Creatinine, Serum 0.36 mg/dL (0.55-1.02); EST Glomerular Filtration Rate 186 mL/min (>60); Est Glom Filt Rate - Afr Amer 225 mL/min (>60); Estimated Creatinine Clearance 32.17 ml/min; Glucose 94 mg/dL (74-106); Potassium 3.4 mmol/L (3.5-5.1); Sodium Level 145 mmol/L (136-145)
[2018-09-13 06:30] VITALS: PULSE 70; RESP 16; O2SAT 95
[2018-09-13] MEDS: Acetaminophen 500 MG Tablet 1000 MG PO ×2 (08:02→14:23)
[2018-09-13] MEDS: Multivitamins,Ther W-Minerals Tablet 1 TABLET PO (08:02)
[2018-09-13] MEDS: Ensure Clear 120 ML Liquid PO ×2 (10:43→17:06)
--- NOTE | 2018-09-13 11:34 | PCM.PN.RX ---
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 Current Medications Generic Name Dose Route Start Last Admin Trade Name Freq PRN Reason Stop Dose Admin Acetaminophen 1,000 mg 09/11/18 16:57 09/13/18 08:02 Tylenol PO 1,000 mg Q6H PRN PRN Administration MILD PAIN (1-3) Apixaban 2.5 mg 09/11/18 18:00 09/13/18 04:50 Eliquis PO 09/26/18 08:00 2.5 mg BID TIFFANI Administration Aspirin 81 mg 09/27/18 08:00 Aspirin, Baby PO DAILY@0800 TIFFANI Bisacodyl 10 mg 09/11/18 16:58 09/12/18 17:32 Dulcolax PO 10 mg DAILY PRN PRN Administration Constipation Cyanocobalamin 500 mcg 09/12/18 06:00 09/13/18 04:49 Vitamin B12 PO 500 mcg DAILY TIFFANI Administration Ibuprofen 200 mg 09/11/18 18:00 09/13/18 04:49 Motrin PO 200 mg BID TIFFANI Administration Multivitamins/Minerals 1 tablet 09/12/18 08:00 09/13/18 08:02 Multivitamin With Minerals PO 1 tablet DAILY@0800 [facility] Administration Nutritional Formula (Lactose Free) 120 ml 09/11/18 17:45 09/13/18 10:43 Ensure Clear PO 120 ml TIDCM TIFFANI Administration Oxycodone HCl 5 mg 09/11/18 16:58 Oxyir PO Q4H PRN PRN SEVERE PAIN (6-1010) Polyethylene Glycol 17 gm 09/12/18 06:00 09/13/18 04:49 Miralax PO 17 gm DAILY TIFFANI Administration Potassium Chloride 10 meq 09/14/18 08:00 [facility] Senna/Docusate Sodium 1 tablet 09/11/18 18:00 09/13/18 04:50 Senokot-S, Lorena-Colace PO 1 tablet BID TIFFANI Administration Tramadol HCl 50 mg 09/11/18 16:58 Ultram PO Q6H PRN PRN MODERATE PAIN (4-5/10) Tuberculin PPD 5 tu 09/19/18 10:00 Tubersol, Aplisol, Ppd ID 09/19/18 10:01 X1 ONE Problem List Debility (Acute) Fall (Acute) Troponin I above reference range (Acute) Vital Signs Temp Pulse Resp BP Pulse Ox 98.8 F 70 16 104/67 95 09/12/18 15:05 09/13/18 06:30 09/13/18 06:30 09/12/18 15:05 09/13/18 06:30 Oxygen Delivery Method Room Air Weight: 60 kg Body Mass Index (BMI) 24.7 Sodium 145 mmol/L (136-145) 09/13/18 05:05 Potassium 3.4 mmol/L (3.5-5.1) L 09/13/18 05:05 Chloride 109 mmol/L (98-107) H 09/13/18 05:05 Carbon Dioxide 29.0 mmol/L (21.0-32.0) 09/13/18 05:05 Anion Gap 7 (5-15) 09/13/18 05:05 BUN 11 mg/dL (7-18) 09/13/18 05:05 Creatinine 0.36 mg/dL (0.55-1.02) L 09/13/18 05:05 Est GFR (MDRD) Af Amer 225 mL/min (>60) 09/13/18 05:05 Est GFR (MDRD) Non-Af 186 mL/min (>60) 09/13/18 05:05 BUN/Creatinine Ratio 31.0 RATIO (10-20) H 09/13/18 05:05 Glucose 94 mg/dL (74-106) 09/13/18 05:05 Assessment/Plan: 1) Pain APAP for mild pain, tramadol for moderate pain, oxycodone for severe pain, ibuprofen. Continue to monitor prn medication use, daily pain scores. * 2) DVT PPx Apixaban twice daily thru 09/26. Continue to monitor for bleeding/clot. * Patient is maintained on ASA, apixaban and ibuprofen. Please consider reviewing the need for ASA and consider dc or making ibuprofen prn to reduce the risk of bleeding while on apixaban. 3) Nutrition B12, Ensure, multivitamin, KCL. Continue to monitor electrolytes. Psychotropic Medications: None Unnecessary Medications: None Bowel Regimen: 4) Senna/s, PEG, prn bisacodyl. Continue to monitor prn medication use, for constipation/diarrhea. Date of Note:: 09/13/18 - Provider Comments Provider responsibility: Provider responsible to enter orders to implement recommendations <Vipin Munoz Chi - Last Filed: 09/13/18 17:33> Progress Note - Pharmacy Subjective: [] Objective: Allergies latex Adverse Reaction (Verified 09/08/18 19:12) Other ALL ATB Adverse Reaction (Uncoded 09/08/18 19:16) Other BLOCKED HER BRAIN Current Medications Generic Name Dose Route Start Last Admin Trade Name Freq PRN Reason Stop Dose Admin Acetaminophen 1,000 mg 09/11/18 16:57 09/13/18 14:23 Tylenol PO 1,000 mg Q6H PRN PRN Administration MILD PAIN (-06/12) Apixaban 2.5 mg 09/11/18 18:00 09/13/18 17:07 Eliquis PO 09/26/18 08:00 2.5 mg BID TIFFANI Administration Aspirin 81 mg 09/27/18 08:00 Aspirin, Baby PO DAILY@0800 TIFFANI Bisacodyl 10 mg 09/11/18 16:58 09/12/18 17:32 Dulcolax PO 10 mg DAILY PRN PRN Administration Constipation Cyanocobalamin 500 mcg 09/12/18 06:00 09/13/18 04:49 Vitamin B12 PO 500 mcg DAILY TIFFANI Administration Ibuprofen 200 mg 09/11/18 18:00 09/13/18 17:06 Motrin PO 200 mg BID TIFAFNI Administration Multivitamins/Minerals 1 tablet 09/12/18 08:00 09/13/18 08:02 Multivitamin With Minerals PO 1 tablet DAILY@0800 TIFFANI Administration Nutritional Formula (Lactose Free) 120 ml 09/11/18 17:45 09/13/18 17:06 Ensure Clear PO 120 ml TIDCM TIFFANI Administration Oxycodone HCl 5 mg 09/11/18 16:58 Oxyir PO Q4H PRN PRN SEVERE PAIN (6-01/12) Polyethylene Glycol 17 gm 09/12/18 06:00 09/13/18 04:49 Miralax PO 17 gm DAILY TIFFANI Administration Potassium Chloride 10 meq 09/14/18 08:00 K-Dur PO DAILYCM TIFFANI Senna/Docusate Sodium 1 tablet 09/11/18 18:00 09/13/18 17:07 Senokot-S, Lorena-Colace PO 1 tablet BID TIFFANI Administration Tramadol HCl 50 mg 09/11/18 16:58 Ultram PO Q6H PRN PRN MODERATE PAIN (4-5/10) Tuberculin PPD 5 tu 09/19/18 10:00 Tubersol, Aplisol, Ppd ID 09/19/18 10:01 X1 ONE Problem List Debility (Acute) Fall (Acute) Troponin I above reference range (Acute) Vital Signs Temp Pulse Resp BP Pulse Ox 98.3 F 98 18 121/74 H 93 09/13/18 15:21 09/13/18 15:21 09/13/18 15:21 09/13/18 15:21 09/13/18 15:21 Oxygen Delivery Method Room Air Weight: 60 kg Body Mass Index (BMI) 24.7 Sodium 145 mmol/L (136-145) 09/13/18 05:05 Potassium 3.4 mmol/L (3.5-5.1) L 09/13/18 05:05 Chloride 109 mmol/L (98-107) H 09/13/18 05:05 Carbon Dioxide 29.0 mmol/L (21.0-32.0) 09/13/18 05:05 Anion Gap 7 (5-15) 09/13/18 05:05 BUN 11 mg/dL (7-18) 09/13/18 05:05 Creatinine 0.36 mg/dL (0.55-1.02) L 09/13/18 05:05 Est GFR (MDRD) Af Amer 225 mL/min (>60) 09/13/18 05:05 Est GFR (MDRD) Non-Af 186 mL/min (>60) 09/13/18 05:05 BUN/Creatinine Ratio 31.0 RATIO (10-20) H 09/13/18 05:05 Glucose 94 mg/dL (74-106) 09/13/18 05:05 Assessment/Plan: Psychotropic Medications: Unnecessary Medications: Bowel Regimen: - Provider Comments Provider responsibility: Provider responsible to enter orders to implement recommendations Provider Comments to Recommendations by Pharmacy: Agree
[2018-09-13 15:21] VITALS: BP 121/74; PULSE 98; RESP 18; TEMP 36.8; O2SAT 93
[2018-09-14 05:31] LABS: Absolute Lymphocyte Count 2.28 X10^3/ul (0.83-4.51); Absolute Neutrophil Count 5.2 X10^3/uL (2.0-7.7); Basophil# 0.02 X10^3/uL; Basophil% 0.2 % (0-1); Eosinophil# 0.44 X10^3/uL; Hematocrit 34.8 % (37-47); Hemoglobin 11.4 g/dl (12.0-15.0); Lymphocyte # 2.28 X10^3/ul (4.0); Lymphocyte % 26.1 % (19-41); Mean Corp Hgb Conc 32.8 g/gl (32-36); Mean Corpuscular Hgb 30.8 pg (27.0-32.0); Mean Corpuscular Volume 94.1 fL (81-99); Mean Platelet Vol. 9.3 fl (6.2-12.0); Monocyte# 0.73 X10^3/uL; Monocyte% 8.3 % (0-10); Neutrophil # 5.24 X10^3/uL (2.7-7.7); Neutrophil % 59.9 % (47-70); Platelet Count 285 K/mm3 (150-450); RBC Distribution Width CV 13.2 % (11.6-14.6); RBC Distribution Width SD 45.1 fl (35.1-43.9); White Blood Count 8.8 K/mm3 (4.4-11.0)
[2018-09-14] MEDS: Cyanocobalamin 500 MCG Tablet PO (05:55)
[2018-09-14] MEDS: Senna/Docusate Sodium 1 Tablet PO ×2 (05:55→17:23)
[2018-09-14] MEDS: Polyethylene Glycol 3350 17 GM PACKET PO (05:55)
[2018-09-14] MEDS: APIXABAN 2.5 MG TABLET PO ×2 (05:55→17:23)
[2018-09-14 06:01] LABS: Anion Gap 6 (5-15); BUN 10 mg/dL (7-18); BUN/Creat Ratio 31.2 RATIO (10-20); Chloride 109 mmol/L (98-107); Creatinine, Serum 0.32 mg/dL (0.55-1.02); EST Glomerular Filtration Rate 209 mL/min (>60); Est Glom Filt Rate - Afr Amer 253 mL/min (>60); Estimated Creatinine Clearance 32.17 ml/min; Glucose 92 mg/dL (74-106); Potassium 3.6 mmol/L (3.5-5.1); Sodium Level 143 mmol/L (136-145)
[2018-09-14 06:04] LABS: POSITIVE COUNT NO; POSITIVE DIFFERENTIAL NO; POSITIVE MORPHOLOGY NO
[2018-09-14] MEDS: Multivitamins,Ther W-Minerals Tablet 1 TABLET PO (08:31)
[2018-09-14] MEDS: Ensure Clear 120 ML Liquid PO ×3 (08:31→17:24)
--- NOTE | 2018-09-14 09:07 | NURSING ---
Pt states at times it is difficult to swallow foods while eating. Pt states that it feels like food is getting caught in throat and has to cough to clear food. No c/o of soreness to throat. Reported to Tanya CRUZ.
[2018-09-14 10:00] VITALS: PULSE 70; RESP 16; O2SAT 95
--- NOTE | 2018-09-14 10:07 | CASEMGMT ---
Social Work IDT met with patient and niece, Sonali, via conference call for care plan meeting. Discussed making progress with therapy. Goal is to discharge home with assistance from nieces and circular knitter helper. Will continue to monitor progress. Discharge planning remains ongoing. JAS LeW
--- NOTE | 2018-09-14 12:42 | NURSING ---
Lt hip incision site bleeding. Steri-strips not intact. New steri-strips applied by Lina CRUZ. ABD applied and secured with tape. Will continue to monitor. Tanya CRUZ made aware.
[2018-09-14 16:00] VITALS: BP 115/85; PULSE 97; RESP 20; TEMP 37.2; O2SAT 92
[2018-09-15] MEDS: Acetaminophen 500 MG Tablet 1000 MG PO (01:54)
[2018-09-15 05:40] LABS: Absolute Lymphocyte Count 2.16 X10^3/ul (0.83-4.51); Absolute Neutrophil Count 3.6 X10^3/uL (2.0-7.7); Basophil# 0.01 X10^3/uL; Basophil% 0.1 % (0-1); Eosinophil# 0.33 X10^3/uL; Eosinophils% 4.7 % (0-5); Hematocrit 35.3 % (37-47); Hemoglobin 11.3 g/dl (12.0-15.0); Lymphocyte # 2.16 X10^3/ul (4.0); Mean Corpuscular Hgb 30.4 pg (27.0-32.0); Mean Corpuscular Volume 94.9 fL (81-99); Mean Platelet Vol. 9.6 fl (6.2-12.0); Monocyte# 0.79 X10^3/uL; Monocyte% 11.4 % (0-10); Neutrophil # 3.62 X10^3/uL (2.7-7.7); Neutrophil % 52.1 % (47-70); Platelet Count 312 K/mm3 (150-450); RBC Distribution Width SD 43.3 fl (35.1-43.9); Red Blood Count 3.72 M/mm3 (4.2-5.4)
[2018-09-15 06:04] LABS: POSITIVE COUNT NO; POSITIVE DIFFERENTIAL NO; POSITIVE MORPHOLOGY NO
[2018-09-15 06:12] LABS: Anion Gap 7 (5-15); BUN 6 mg/dL (7-18); BUN/Creat Ratio 16.6 RATIO (10-20); Calcium,Total 8.1 mg/dL (8.5-10.1); Chloride 110 mmol/L (98-107); Creatinine, Serum 0.36 mg/dL (0.55-1.02); EST Glomerular Filtration Rate 182 mL/min (>60); Est Glom Filt Rate - Afr Amer 220 mL/min (>60); Estimated Creatinine Clearance 32.17 ml/min; Glucose 101 mg/dL (74-106); Potassium 3.5 mmol/L (3.5-5.1); Sodium Level 143 mmol/L (136-145)
[2018-09-15] MEDS: Senna/Docusate Sodium 1 Tablet PO ×2 (06:17→17:44)
[2018-09-15] MEDS: Polyethylene Glycol 3350 17 GM PACKET PO (06:17)
[2018-09-15] MEDS: Cyanocobalamin 500 MCG Tablet PO (06:17)
[2018-09-15] MEDS: APIXABAN 2.5 MG TABLET PO ×2 (06:18→17:44)
[2018-09-15] MEDS: Ensure Clear 120 ML Liquid PO ×3 (08:24→17:44)
[2018-09-15] MEDS: Multivitamins,Ther W-Minerals Tablet 1 TABLET PO (08:24)
[2018-09-15 13:53] VITALS: BP 115/74; PULSE 93; RESP 17; TEMP 36.8; O2SAT 90
[2018-09-15 21:23] VITALS: PULSE 70; RESP 16; O2SAT 94
[2018-09-16] MEDS: Cyanocobalamin 500 MCG Tablet PO (05:48)
[2018-09-16] MEDS: Senna/Docusate Sodium 1 Tablet PO ×2 (05:48→17:12)
[2018-09-16] MEDS: APIXABAN 2.5 MG TABLET PO ×2 (05:48→17:12)
[2018-09-16] MEDS: Polyethylene Glycol 3350 17 GM PACKET PO (05:48)
[2018-09-16] MEDS: Multivitamins,Ther W-Minerals Tablet 1 TABLET PO (09:00)
[2018-09-16] MEDS: Acetaminophen 500 MG Tablet 1000 MG PO (09:03)
[2018-09-16] MEDS: Ensure Clear 120 ML Liquid PO ×3 (09:03→17:11)
--- NOTE | 2018-09-16 10:23 | CASEMGMT ---
Social Work BIMS and PHQ-9 completed on this date for WILBUR 09/18. Jud Glasgow, SHIFT SUPERVISOR RN CLOTH NEUTRALIZER
[2018-09-16 15:25] VITALS: BP 121/64; PULSE 57; RESP 16; TEMP 36.6; O2SAT 93
[2018-09-16 15:35] VITALS: PULSE 67; RESP 16; O2SAT 94
--- NOTE | 2018-09-16 16:59 | NURSING ---
MEPILEX CHANGED TO PT BOTTOM.
[2018-09-16] MEDS: Bisacodyl 5 MG Tablet 10 MG PO (17:12)
[2018-09-17] MEDS: Senna/Docusate Sodium 1 Tablet PO ×2 (05:27→17:03)
[2018-09-17] MEDS: APIXABAN 2.5 MG TABLET PO ×2 (05:27→17:03)
[2018-09-17] MEDS: Cyanocobalamin 500 MCG Tablet PO (05:28)
[2018-09-17] MEDS: Polyethylene Glycol 3350 17 GM PACKET PO (05:29)
[2018-09-17] MEDS: Acetaminophen 500 MG Tablet 1000 MG PO (05:31)
--- NOTE | 2018-09-17 05:33 | NURSING ---
Pt c/o pain in right foot rates pain level at a 8 at this time. Nurse noted pitting +1 to area per pt request given prn tylenol RN aware.
[2018-09-17] MEDS: Ensure Clear 120 ML Liquid PO ×3 (08:33→17:03)
[2018-09-17] MEDS: Multivitamins,Ther W-Minerals Tablet 1 TABLET PO (08:33)
[2018-09-17 16:00] VITALS: BP 128/70; PULSE 69; RESP 18; TEMP 36.8; O2SAT 98
[2018-09-18] MEDS: Senna/Docusate Sodium 1 Tablet PO (06:52)
[2018-09-18] MEDS: Cyanocobalamin 500 MCG Tablet PO (06:52)
[2018-09-18] MEDS: APIXABAN 2.5 MG TABLET PO ×2 (06:52→17:29)
[2018-09-18] MEDS: Polyethylene Glycol 3350 17 GM PACKET PO (06:53)
[2018-09-18] MEDS: Multivitamins,Ther W-Minerals Tablet 1 TABLET PO (07:59)
[2018-09-18] MEDS: Ensure Clear 120 ML Liquid PO ×3 (07:59→17:28)
[2018-09-18] MEDS: Acetaminophen 500 MG Tablet 1000 MG PO (12:26)
[2018-09-18 15:37] VITALS: BP 108/71; PULSE 75; RESP 20; TEMP 36.6; O2SAT 94
[2018-09-19] MEDS: Acetaminophen 500 MG Tablet 1000 MG PO (01:30)
[2018-09-19] MEDS: traMADol 50 MG Tablet PO (06:34)
[2018-09-19] MEDS: APIXABAN 2.5 MG TABLET PO ×2 (06:38→16:58)
[2018-09-19] MEDS: Senna/Docusate Sodium 1 Tablet PO (06:38)
[2018-09-19] MEDS: Multivitamins,Ther W-Minerals Tablet 1 TABLET PO (08:41)
[2018-09-19] MEDS: Ensure Clear 120 ML Liquid PO ×3 (08:41→16:58)
[2018-09-19] MEDS: Cyanocobalamin 500 MCG Tablet PO (09:27)
[2018-09-19] MEDS: Tuberculin,Purif.prot.deriv. 50 TU/ML Vial 5 ML ID (09:28)
[2018-09-19 15:09] VITALS: BP 126/58; PULSE 49; RESP 14; TEMP 36.9; O2SAT 95
--- NOTE | 2018-09-19 16:29 | NURSING ---
Suture tails removed per order using sterile scissors.
[2018-09-19 20:30] VITALS: PULSE 86; RESP 16; O2SAT 98
[2018-09-20] MEDS: APIXABAN 2.5 MG TABLET PO ×2 (05:40→17:20)
[2018-09-20] MEDS: Cyanocobalamin 500 MCG Tablet PO (05:40)
[2018-09-20] MEDS: Ensure Clear 120 ML Liquid PO ×3 (08:30→17:19)
[2018-09-20] MEDS: Multivitamins,Ther W-Minerals Tablet 1 TABLET PO (08:31)
[2018-09-20 16:00] VITALS: BP 116/75; PULSE 94; RESP 16; TEMP 37; O2SAT 93
[2018-09-20] MEDS: Senna/Docusate Sodium 1 Tablet PO (17:20)
[2018-09-20] MEDS: Acetaminophen 500 MG Tablet 1000 MG PO (20:19)
[2018-09-20 20:30] VITALS: BP 114/63; PULSE 80; RESP 18; TEMP 36.4; O2SAT 93
[2018-09-21] MEDS: Cyanocobalamin 500 MCG Tablet PO (03:58)
[2018-09-21] MEDS: Senna/Docusate Sodium 1 Tablet PO ×2 (03:59→17:26)
[2018-09-21] MEDS: APIXABAN 2.5 MG TABLET PO ×2 (03:59→17:26)
[2018-09-21] MEDS: Acetaminophen 500 MG Tablet 1000 MG PO (03:59)
[2018-09-21] MEDS: Polyethylene Glycol 3350 17 GM PACKET PO (04:01)
--- NOTE | 2018-09-21 06:44 | NURSING ---
pt upset this am d/t staff checking attends for incontinence. pt ambulated to the br later to void in the toilet and remained upset about getting disturbed during the night to have attends checked. staff apologized for the disturbance and pt did not want disturbed until breakfast, and wanted to sleep. dressing changes not completed at this time (0400), d/t pt agitation and declined to have them dne.
[2018-09-21] MEDS: Ensure Clear 120 ML Liquid PO ×3 (08:06→17:24)
[2018-09-21] MEDS: Multivitamins,Ther W-Minerals Tablet 1 TABLET PO (08:06)
--- NOTE | 2018-09-21 09:57 | NURSING ---
DRESSINGS TO ML ELBOWS,RIGHT KNEE AND NEW MEPILEX TO BOTTOM ON. HIP AND BLISTER TO RIGHT POST THIGH OPEN TO AIR. DONE BY THIS NURSE. PT TOLERATED WELL AND PLEASANT AT THIS TIME. REPORTED TO ANTHONY SHAFFER
[2018-09-21 15:48] VITALS: BP 113/78; PULSE 88; RESP 18; TEMP 36.8; O2SAT 97
[2018-09-21 22:20] VITALS: PULSE 68; RESP 16; O2SAT 93
[2018-09-22] MEDS: Acetaminophen 500 MG Tablet 1000 MG PO ×2 (05:26→15:28)
[2018-09-22] MEDS: APIXABAN 2.5 MG TABLET PO ×2 (05:35→17:18)
[2018-09-22] MEDS: Cyanocobalamin 500 MCG Tablet PO (05:35)
[2018-09-22] MEDS: Senna/Docusate Sodium 1 Tablet PO ×2 (05:35→17:18)
--- NOTE | 2018-09-22 07:06 | PCA ---
At 5:10 This morning res. rang call light to go to the bathroom, this keg inspector assisted res. to bathroom,when she pulled her pants down they hit the floor, I checked her attends to be sure they were dry, res. then said loudly, they arent wet, I said I just needed to be sure they were dry, she then said well no one else does that. this res, has been inc. and gets upset when we check her for inc. reported to luis Martinez and RN
[2018-09-22] MEDS: Multivitamins,Ther W-Minerals Tablet 1 TABLET PO (07:58)
[2018-09-22] MEDS: Ensure Clear 120 ML Liquid PO ×3 (08:00→17:18)
--- NOTE | 2018-09-22 09:21 | MDS.RN ---
Information for the mds was obtained from review of the clinical record, interview of resident, staff, and direct observation of resident's care.
[2018-09-22 15:51] VITALS: BP 104/76; PULSE 99; RESP 18; TEMP 37; O2SAT 97
[2018-09-23 00:10] VITALS: PULSE 74; RESP 18; O2SAT 93
[2018-09-23] MEDS: Cyanocobalamin 500 MCG Tablet PO (06:22)
[2018-09-23] MEDS: Senna/Docusate Sodium 1 Tablet PO ×2 (06:22→17:08)
[2018-09-23] MEDS: APIXABAN 2.5 MG TABLET PO ×2 (06:22→17:08)
[2018-09-23] MEDS: Ensure Clear 120 ML Liquid PO ×3 (06:25→17:08)
[2018-09-23] MEDS: Multivitamins,Ther W-Minerals Tablet 1 TABLET PO (08:11)
[2018-09-23] MEDS: Acetaminophen 500 MG Tablet 1000 MG PO ×2 (09:15→21:10)
--- NOTE | 2018-09-23 10:38 | MDS.RN ---
Pain interview for colleen 09/25/18 completed.
--- NOTE | 2018-09-23 11:15 | NURSING ---
Therapy in doing ADL care with pt. Therapy told this nurse that blister to left inner upper thigh is now open. Area cleansed with NS. Adaptic applied and 4x4 secured with tape. Tanya CRUZ aware.
--- NOTE | 2018-09-23 13:45 | CASEMGMT ---
BIMS and PHQ9 interviews completed on this date for MDS assessment. VENECIA Cuenca
[2018-09-23 14:55] VITALS: BP 125/75; PULSE 74; RESP 18; TEMP 37.2; O2SAT 93
[2018-09-24] MEDS: Senna/Docusate Sodium 1 Tablet PO ×2 (06:06→17:24)
[2018-09-24] MEDS: Cyanocobalamin 500 MCG Tablet PO (06:06)
[2018-09-24] MEDS: APIXABAN 2.5 MG TABLET PO ×2 (06:06→17:24)
[2018-09-24] MEDS: Ensure Clear 120 ML Liquid PO ×3 (06:06→17:23)
[2018-09-24] MEDS: Multivitamins,Ther W-Minerals Tablet 1 TABLET PO (07:52)
--- NOTE | 2018-09-24 11:24 | NURSING ---
PT REFUSING TO GET UP IN CHAIR FOR MEALS. PT STATED PATO TIERED AND DONT FEEL GOOD. PT ALSO GIVING PRN THERAPY GIRLS A HARD TIME AND NOT VERY COAPTIVE.
[2018-09-24] MEDS: Acetaminophen 500 MG Tablet 1000 MG PO (11:29)
[2018-09-24 15:24] VITALS: BP 130/71; PULSE 71; RESP 16; TEMP 36.4; O2SAT 95
[2018-09-24 19:47] VITALS: PULSE 76; RESP 16; O2SAT 98
[2018-09-25] MEDS: APIXABAN 2.5 MG TABLET PO ×2 (06:30→16:58)
[2018-09-25] MEDS: Cyanocobalamin 500 MCG Tablet PO (06:30)
[2018-09-25] MEDS: Senna/Docusate Sodium 1 Tablet PO ×2 (06:30→16:58)
[2018-09-25] MEDS: Ensure Clear 120 ML Liquid PO ×3 (07:58→16:57)
[2018-09-25] MEDS: Multivitamins,Ther W-Minerals Tablet 1 TABLET PO (07:59)
--- NOTE | 2018-09-25 10:01 | NURSING ---
THIS NURSE IN PT ROOM AND FOUND PT HAD TAKEN ELBOW PADS AND LEFT ELBOW DRESSING OFF. ASKED PT WHY THEY WERE OFF, PT STATED THEY WERE TO TIGHT AND LOOKED UGLY. PT LET THIS NURSE APPLY BANDAIDS TO BOTH ELBOWS AND PUT ELBOW PADS BACK ON. PT STATED THAT IT FELT BETTER. ELBOWS HAVE LARGE DRIED SCABS. REPORTED TO ANTHONY RODRIGUEZ
[2018-09-25 11:00] VITALS: PULSE 83; RESP 18; O2SAT 93
[2018-09-25] MEDS: Acetaminophen 500 MG Tablet 1000 MG PO (13:46)
[2018-09-25 15:20] VITALS: BP 112/64; PULSE 83; RESP 16; TEMP 36.3; O2SAT 96
[2018-09-26] MEDS: APIXABAN 2.5 MG TABLET PO (06:25)
[2018-09-26] MEDS: Cyanocobalamin 500 MCG Tablet PO (06:25)
[2018-09-26] MEDS: Senna/Docusate Sodium 1 Tablet PO ×2 (06:25→17:11)
[2018-09-26] MEDS: Multivitamins,Ther W-Minerals Tablet 1 TABLET PO (07:59)
[2018-09-26] MEDS: Ensure Clear 120 ML Liquid PO ×3 (07:59→17:11)
[2018-09-26 09:42] VITALS: PULSE 86; RESP 18; O2SAT 95
--- NOTE | 2018-09-26 09:55 | NURSING ---
New mepilex applied to bottom by this nurse.
[2018-09-26] MEDS: Acetaminophen 500 MG Tablet 1000 MG PO (12:16)
[2018-09-26 14:50] VITALS: BP 114/68; PULSE 60; RESP 16; TEMP 37.2; O2SAT 95
[2018-09-27] MEDS: Cyanocobalamin 500 MCG Tablet PO (06:43)
[2018-09-27] MEDS: Senna/Docusate Sodium 1 Tablet PO ×2 (06:43→17:05)
[2018-09-27] MEDS: Acetaminophen 500 MG Tablet 1000 MG PO (06:46)
[2018-09-27] MEDS: Ensure Clear 120 ML Liquid PO ×3 (08:01→17:05)
[2018-09-27] MEDS: Multivitamins,Ther W-Minerals Tablet 1 TABLET PO (08:01)
[2018-09-27] MEDS: Aspirin 81 MG TAB.CHEW PO (08:01)
[2018-09-27 09:55] VITALS: PULSE 84; RESP 18; O2SAT 96
[2018-09-27 15:41] VITALS: BP 125/75; PULSE 71; RESP 16; TEMP 36.6; O2SAT 95
[2018-09-28] MEDS: Cyanocobalamin 500 MCG Tablet PO (06:47)
[2018-09-28] MEDS: Acetaminophen 500 MG Tablet 1000 MG PO (06:49)
[2018-09-28] MEDS: Multivitamins,Ther W-Minerals Tablet 1 TABLET PO (08:17)
[2018-09-28] MEDS: Aspirin 81 MG TAB.CHEW PO (08:17)
[2018-09-28] MEDS: Ensure Clear 120 ML Liquid PO ×2 (08:17→17:05)
[2018-09-28] MEDS: traMADol 50 MG Tablet PO (12:49)
[2018-09-28 16:00] VITALS: BP 123/63; PULSE 68; RESP 16; TEMP 36.8; O2SAT 95
[2018-09-28 23:58] VITALS: PULSE 82; RESP 16; O2SAT 97
[2018-09-29] MEDS: Cyanocobalamin 500 MCG Tablet PO (05:58)
[2018-09-29] MEDS: Ensure Clear 120 ML Liquid PO ×3 (07:57→17:28)
[2018-09-29] MEDS: Aspirin 81 MG TAB.CHEW PO (07:57)
[2018-09-29] MEDS: Multivitamins,Ther W-Minerals Tablet 1 TABLET PO (07:57)
[2018-09-29] MEDS: Acetaminophen 500 MG Tablet 1000 MG PO (11:57)
[2018-09-29 15:19] VITALS: BP 135/74; PULSE 59; RESP 16; TEMP 36.9; O2SAT 98
[2018-09-30] MEDS: Acetaminophen 500 MG Tablet 1000 MG PO (02:54)
[2018-09-30] MEDS: Cyanocobalamin 500 MCG Tablet PO (05:38)
[2018-09-30] MEDS: Multivitamins,Ther W-Minerals Tablet 1 TABLET PO (08:28)
[2018-09-30] MEDS: Aspirin 81 MG TAB.CHEW PO (08:28)
[2018-09-30] MEDS: Ensure Clear 120 ML Liquid PO ×3 (08:28→17:15)
[2018-09-30 15:18] VITALS: BP 111/48; PULSE 63; RESP 16; TEMP 36.8; O2SAT 93
[2018-09-30 20:00] VITALS: PULSE 72; RESP 16
[2018-10-01] MEDS: Acetaminophen 500 MG Tablet 1000 MG PO (03:06)
[2018-10-01] MEDS: Senna/Docusate Sodium 1 Tablet PO (06:54)
[2018-10-01] MEDS: Cyanocobalamin 500 MCG Tablet PO (06:54)
[2018-10-01 07:04] VITALS: PULSE 81; RESP 14; O2SAT 99
[2018-10-01] MEDS: Aspirin 81 MG TAB.CHEW PO (08:19)
[2018-10-01] MEDS: Ensure Clear 120 ML Liquid PO ×3 (08:19→16:44)
[2018-10-01] MEDS: Multivitamins,Ther W-Minerals Tablet 1 TABLET PO (08:20)
[2018-10-01 15:42] VITALS: BP 127/81; PULSE 74; RESP 16; TEMP 36.4; O2SAT 94
--- NOTE | 2018-10-01 15:49 | NURSING ---
New Mepilex applied to bottom by this nurse.
[2018-10-02] MEDS: Cyanocobalamin 500 MCG Tablet PO (05:54)
[2018-10-02] MEDS: Senna/Docusate Sodium 1 Tablet PO ×2 (05:54→17:18)
[2018-10-02] MEDS: Acetaminophen 500 MG Tablet 1000 MG PO ×2 (05:56→18:19)
[2018-10-02] MEDS: Ensure Clear 120 ML Liquid PO ×3 (07:37→17:18)
[2018-10-02] MEDS: Multivitamins,Ther W-Minerals Tablet 1 TABLET PO (07:37)
[2018-10-02] MEDS: Aspirin 81 MG TAB.CHEW PO (07:37)
[2018-10-02 15:34] VITALS: BP 107/79; PULSE 51; RESP 20; TEMP 36.6; O2SAT 93
[2018-10-02 22:21] VITALS: PULSE 78; RESP 16; O2SAT 93
[2018-10-03] MEDS: Senna/Docusate Sodium 1 Tablet PO (06:10)
[2018-10-03] MEDS: Cyanocobalamin 500 MCG Tablet PO (06:10)
[2018-10-03] MEDS: Aspirin 81 MG TAB.CHEW PO (07:55)
[2018-10-03] MEDS: Multivitamins,Ther W-Minerals Tablet 1 TABLET PO (07:56)
[2018-10-03 15:47] VITALS: BP 137/79; PULSE 84; RESP 18; TEMP 36.8; O2SAT 94
[2018-10-03 19:45] VITALS: PULSE 85; RESP 16; O2SAT 95
[2018-10-03] MEDS: Acetaminophen 500 MG Tablet 1000 MG PO (19:45)
[2018-10-04] MEDS: Cyanocobalamin 500 MCG Tablet PO (06:37)
[2018-10-04] MEDS: Acetaminophen 500 MG Tablet 1000 MG PO ×2 (06:38→18:02)
[2018-10-04] MEDS: Aspirin 81 MG TAB.CHEW PO (08:26)
[2018-10-04] MEDS: Multivitamins,Ther W-Minerals Tablet 1 TABLET PO (08:26)
--- NOTE | 2018-10-04 10:43 | MDS.RN ---
Information for the mds was obtained from review of the clinical record, interview of resident, staff, and direct observation of resident's care.
[2018-10-04 15:38] VITALS: BP 111/66; PULSE 67; RESP 14; TEMP 36.8; O2SAT 93
--- NOTE | 2018-10-04 19:39 | DCINST_ITS ---
- Discharge Diagnoses Current Active Problems: Current Active and Chronic Problems Debility (Acute) Fall (Acute) Troponin I above reference range (Acute) You will use the following diet at home:: No restrictions, Regular Your food should be the consistency of: Regular Your liquids should be the consistency of: Regular/Thin Discharge Activity: Return to Normal Activity, May Shower, Use Walker Weight Bearing Status: Weight bearing as tolerated Call your doctor if you observe: Fever of 101 or Higher, Inability to urinate, Inability to have a bowel movement, Shortness of breath, Chest pain, Uncontrolled pain Allergies/Adverse Reactions: Allergies latex Adverse Reaction (Verified 09/08/18 19:12) Other ALL ATB Adverse Reaction (Uncoded 09/08/18 19:16) Other BLOCKED HER BRAIN Medications to take at Discharge Vit A/Vit C/Vit E/Zinc/Copper [Preservision Areds Softgel] 2 tab PO DAILY 09/08/18 Vitamin B-12 1 tab PO DAILY 09/08/18 Acetaminophen [Tylenol] 1,000 mg PO Q6H PRN PRN tablet 10/04/18 Aspirin [Aspirin, Baby] 81 mg PO DAILY@0800 tab.chew 10/04/18 Potassium Chloride [K-Dur] 10 meq PO DAILYCM #30 tab 10/04/18 The following prescriptions were given: Potassium Chloride [K-Dur] 10 meq PO DAILYCM #30 tab Prescription Printed Primary Care Physician: Rodney Garcia III, MD [Primary Care Provider] - Please follow up with your Primary Care Physician in: 1 week. Test Results: Test results from this visit will be discussed in further detail at your follow- up appointment, if applicable. Please Follow Up With: Rodney Garcia III, MD Please Follow Up With: Shalom Sapp MD/Eric HARKINS When: 1-2 Proposed Discharge Date: 10/11/18
--- NOTE | 2018-10-04 19:41 | PCM.DC.SUM ---
Discharge Date and Diagnosis - Problem List Patient Problems: Active and Suspected Problems Debility (Acute) Fall (Acute) Troponin I above reference range (Acute) Date of Admission: 09/11/18 Date of Discharge: 10/11/18 - Primary Discharge Diagnosis Active and Suspected Problems Debility (Acute) Fall (Acute) Troponin I above reference range (Acute) Hospital Course and Treatment Imaging Results: 09/11/18 16:25 Diet: Regular Diet Food consistency:: Regular Liquid Consistency:: Regular/Thin Diet Comments: Needs assistance to cut up meals Operations: total hip replacement - left Procedures: None Summary of Care Provided: The patient is a 83 year old Female with below past medical history hospitalized for left hip fracture, underwent left hip cemented hemiarthroplasty 09/09/[address] Sapp, admitted to TCU with debility, here for rehabilitation, strengthening, prior to discharge home alone. Discharge home alone, outpatient PT. Patient Problems: Active and Suspected Problems Debility (Acute) Fall (Acute) Troponin I above reference range (Acute) - Physical Exam Vital Signs Temp Pulse Resp BP Pulse Ox 98.3 F 67 14 111/66 93 10/04/18 15:38 10/04/18 15:38 10/04/18 15:38 10/04/18 15:38 10/04/18 15:38 Oxygen Delivery Method Room Air Weight: 52.305 kg Body Mass Index (BMI) 24.7 Intake and Output for Last 24 Hours 10/02/18 10/03/18 10/04/18 23:59 23:59 23:59 Intake Total 600 / 600 840 / 840 720 / 720 Balance 600 / 600 840 / 840 720 / 720 Discharge Diet: No Restrictions Discharge Activity: Return to Normal Activity, May Shower, Use Walker Weight Bearing Status: Weight bearing as tolerated Call your doctor if you observe: Fever of 101 or Higher, Inability to urinate, Inability to have a bowel movement, Shortness of breath, Chest pain, Uncontrolled pain Home Medications: Medications to take at Discharge Vit A/Vit C/Vit E/Zinc/Copper [Preservision Areds Softgel] 2 tab PO DAILY 09/08/18 Vitamin B-12 1 tab PO DAILY 09/08/18 Acetaminophen [Tylenol] 1,000 mg PO Q6H PRN PRN tablet 10/04/18 Aspirin [Aspirin, Baby] 81 mg PO DAILY@0800 tab.chew 10/04/18 Potassium Chloride [K-Dur] 10 meq PO DAILYCM #30 tab 10/04/18 Following Prescrptions Were Given to Patient: Potassium Chloride [K-Dur] 10 meq PO DAILYCM #30 tab Prescription Printed Primary Care Physician: Rodney Garcia III, MD [Primary Care Provider] - Please follow up with your Primary Care Physician in: 1 week. Please Follow Up With: Rodney Garcia III, MD Please Follow Up With: Shalom Sapp MD/Eric HARKINS When: 1-2 Disposition: Home Minutes spent on discharge:: 30 Patient Condition:: Stable Medical Necessity - Tobacco Use Smoking Status: Former smoker Tobacco Use: Non-smoker Meaningful Use Info Meaningful Use Diagnoses (Choose all that apply): None applicable
[2018-10-05 06:45] VITALS: PULSE 80; RESP 16; O2SAT 94
[2018-10-05] MEDS: Cyanocobalamin 500 MCG Tablet PO (06:56)
[2018-10-05] MEDS: Aspirin 81 MG TAB.CHEW PO (08:21)
[2018-10-05] MEDS: Multivitamins,Ther W-Minerals Tablet 1 TABLET PO (08:22)
[2018-10-05 14:50] VITALS: BP 114/75; PULSE 71; RESP 16; TEMP 37.2; O2SAT 96
[2018-10-06] MEDS: Cyanocobalamin 500 MCG Tablet PO (05:55)
[2018-10-06 05:56] VITALS: PULSE 74; RESP 16; O2SAT 95
[2018-10-06] MEDS: Ensure Clear 120 ML Liquid PO ×3 (08:30→17:03)
[2018-10-06] MEDS: Aspirin 81 MG TAB.CHEW PO (08:30)
[2018-10-06] MEDS: Multivitamins,Ther W-Minerals Tablet 1 TABLET PO (08:30)
[2018-10-06] MEDS: Acetaminophen 500 MG Tablet 1000 MG PO (11:44)
[2018-10-06 14:08] VITALS: BP 125/75; PULSE 78; RESP 16; TEMP 36.7; O2SAT 93
[2018-10-07 05:42] LABS: Absolute Lymphocyte Count 2.33 X10^3/ul (0.83-4.51); Absolute Neutrophil Count 3.7 X10^3/uL (2.0-7.7); Basophil# 0.03 X10^3/uL; Basophil% 0.4 % (0-1); Eosinophil# 0.49 X10^3/uL; Eosinophils% 6.6 % (0-5); Hemoglobin 12.3 g/dl (12.0-15.0); Lymphocyte # 2.33 X10^3/ul (4.0); Lymphocyte % 31.1 % (19-41); Mean Corp Hgb Conc 31.5 g/gl (32-36); Mean Corpuscular Hgb 30.2 pg (27.0-32.0); Mean Corpuscular Volume 95.8 fL (81-99); Mean Platelet Vol. 9.3 fl (6.2-12.0); Monocyte# 0.86 X10^3/uL; Monocyte% 11.5 % (0-10); Neutrophil # 3.74 X10^3/uL (2.7-7.7); POSITIVE COUNT NO; POSITIVE DIFFERENTIAL NO; POSITIVE MORPHOLOGY NO; Platelet Count 298 K/mm3 (150-450); RBC Distribution Width CV 13.3 % (11.6-14.6); Red Blood Count 4.07 M/mm3 (4.2-5.4); White Blood Count 7.5 K/mm3 (4.4-11.0)
[2018-10-07 05:55] LABS: Anion Gap 6 (5-15); BUN 11 mg/dL (7-18); BUN/Creat Ratio 22.5 RATIO (10-20); Calcium,Total 8.6 mg/dL (8.5-10.1); Chloride 111 mmol/L (98-107); Creatinine, Serum 0.49 mg/dL (0.55-1.02); EST Glomerular Filtration Rate 129 mL/min (>60); Est Glom Filt Rate - Afr Amer 156 mL/min (>60); Estimated Creatinine Clearance 32.17 ml/min; Glucose 87 mg/dL (74-106); Potassium 4.1 mmol/L (3.5-5.1); Sodium Level 144 mmol/L (136-145)
[2018-10-07] MEDS: Cyanocobalamin 500 MCG Tablet PO (06:07)
[2018-10-07] MEDS: Acetaminophen 500 MG Tablet 1000 MG PO ×2 (06:07→12:27)
[2018-10-07 06:23] VITALS: PULSE 84; RESP 16; O2SAT 94
[2018-10-07] MEDS: Multivitamins,Ther W-Minerals Tablet 1 TABLET PO (08:00)
[2018-10-07] MEDS: Aspirin 81 MG TAB.CHEW PO (08:00)
--- NOTE | 2018-10-07 08:53 | CASEMGMT ---
Social Work Spoke with pt about discharging on 10/11. Pt agreed and requesting FWW, elevated toilet seat, and to continue outpatient PT at [facility]. Made referrals to [facility] and [facility]. Plan: DC 10/11 Jud Glasgow, CO DIRECTOR INSIDE SALES DIRECTOR
[2018-10-07] MEDS: Ensure Clear 120 ML Liquid PO ×3 (09:38→17:25)
--- NOTE | 2018-10-07 14:33 | CASEMGMT ---
Social Work BIMS and PHQ-9 completed for MDS assessment. Jud Glasgow, ADVERTISING ACCOUNT EXECUTIVE PIN MAKER
[2018-10-07 15:31] VITALS: BP 136/76; PULSE 56; RESP 16; TEMP 36.9; O2SAT 97
[2018-10-07] MEDS: Senna/Docusate Sodium 1 Tablet PO (17:27)
[2018-10-08] MEDS: Cyanocobalamin 500 MCG Tablet PO (06:00)
[2018-10-08] MEDS: Ensure Clear 120 ML Liquid PO ×3 (09:08→17:49)
[2018-10-08] MEDS: Aspirin 81 MG TAB.CHEW PO (09:09)
[2018-10-08] MEDS: Multivitamins,Ther W-Minerals Tablet 1 TABLET PO (09:09)
[2018-10-08 15:56] VITALS: BP 126/69; PULSE 80; RESP 16; TEMP 36.2; O2SAT 96
[2018-10-09] MEDS: Cyanocobalamin 500 MCG Tablet PO (05:51)
[2018-10-09] MEDS: Acetaminophen 500 MG Tablet 1000 MG PO (05:53)
[2018-10-09] MEDS: Aspirin 81 MG TAB.CHEW PO (08:38)
[2018-10-09] MEDS: Multivitamins,Ther W-Minerals Tablet 1 TABLET PO (08:38)
[2018-10-09] MEDS: Ensure Clear 120 ML Liquid PO ×2 (08:39→16:48)
[2018-10-09 08:56] VITALS: RESP 16; O2SAT 94
[2018-10-09 15:35] VITALS: BP 137/68; PULSE 88; RESP 17; TEMP 36.6; O2SAT 97
[2018-10-10] MEDS: Acetaminophen 500 MG Tablet 1000 MG PO (06:14)
[2018-10-10] MEDS: Senna/Docusate Sodium 1 Tablet PO (06:14)
[2018-10-10] MEDS: Cyanocobalamin 500 MCG Tablet PO (06:14)
[2018-10-10] MEDS: Ensure Clear 120 ML Liquid PO ×3 (07:33→17:34)
[2018-10-10] MEDS: Aspirin 81 MG TAB.CHEW PO (07:34)
[2018-10-10] MEDS: Multivitamins,Ther W-Minerals Tablet 1 TABLET PO (07:34)
[2018-10-10 10:00] VITALS: PULSE 86; RESP 16; O2SAT 97
[2018-10-10 16:00] VITALS: BP 127/78; PULSE 85; RESP 16; TEMP 36.4; O2SAT 95
[2018-10-11] MEDS: Senna/Docusate Sodium 1 Tablet PO (05:32)
[2018-10-11] MEDS: Acetaminophen 500 MG Tablet 1000 MG PO (05:32)
[2018-10-11] MEDS: Cyanocobalamin 500 MCG Tablet PO (05:32)
--- NOTE | 2018-10-11 06:48 | MDS.RN ---
Information for the mds was obtained from review of the clinical record, interview of resident, staff, and direct observation of resident's care.
[2018-10-11] MEDS: Multivitamins,Ther W-Minerals Tablet 1 TABLET PO (08:34)
[2018-10-11] MEDS: Aspirin 81 MG TAB.CHEW PO (08:34)
[2018-10-11] MEDS: Ensure Clear 120 ML Liquid PO ×2 (08:35→12:23)
[2018-10-11 10:00] VITALS: O2SAT 96
[2018-10-11] MEDS: Polyethylene Glycol 3350 17 GM PACKET PO (11:05)
[2018-10-11 19:00] VITALS: BP 117/64; PULSE 68; RESP 14; TEMP 36.9; O2SAT 96
== END 2018-10-11 14:30 | disposition home or self-care (01) | DRG 561 ==
LOC: TCU 16:14
PROVIDERS: Admitting Provider Family Medicine Geriatric Medicine; Family Provider Family Medicine; PCP Family Medicine; Visit Provider Family Medicine Geriatric Medicine
DX: S72.002D Fracture of unspecified part of neck of left femur, subsequent encounter for closed fracture with routine healing (principal); W19.XXXD Unspecified fall, subsequent encounter; Z87.891 Personal history of nicotine dependence; E53.8 Deficiency of other specified B group vitamins; Z23 Encounter for immunization
CPT/HCPCS: 36415; 80048; 85025; 92610; 97110; 97116; 97163; 97166; 97530; 97535; 97802; 90670

== ENCOUNTER 2020-11-26 20:11 | Emergency (ER) | payer MEDICARE, BC, SELFPAY ==
[2020-11-26 20:14] VITALS: BP 160/111; PULSE 115; RESP 20; TEMP 36.8; O2SAT 96; BMI 25.5
--- NOTE | 2020-11-26 20:43 | RAD_ITS ---
STUDY: X-RAY - RIGHT FOOT CLINICAL: Female, 85 years old. Injury/Pain TECHNIQUE: 3 view(s) of the foot. COMPARISON: None. FINDINGS: Normal talus, calcaneus, and tarsal bones. Normal visualized subtalar, talonavicular, calcaneocuboid, tarsal and tarsometatarsal articulations. Normal metatarsi. Hallux valgus deformity of the metatarsophalangeal joint of the great toe. Normal tibial and fibular sesamoid bones. Normal interphalangeal joint of the great toe. Normal phalanges of the great toe. Flexion deformity of the PIP joints of the second through toes possibly representing hammertoe deformity Normal second through fifth metatarsophalangeal joints. Normal interphalangeal joints and phalanges of the lesser toes. The soft tissue structures are unremarkable. RAD/Foot min 3 Views IMPRESSION: No evidence for acute fracture or dislocation Other findings as above Electronically Signed: Devaughn Mcnair MD at 21:43 EDT , Service support ,
--- NOTE | 2020-11-26 21:58 | ED.VIS.LOWEX ---
HPI History of Present Illness Chief Complaint: Lower Extremity Injury Occured/Mechanism Mechanism/Context: Yes injury and Yes blunt trauma Onset/Context/Timing Onset: Hours Context: Sudden Onset Timing: Continuous Quality of Pain: Dull Current Severity: Mild Maximum Severity: Moderate Worsened by: Walking and movement Relieved by: Nothing Associated Symptoms Associated Symptoms: Negative for Parasthesia, Weakness and Loss of Funtion Narrative Tetanus Immunization: 5-10 years Prior similar symptoms: No Recent Illness/Hospitalization: No PFSH PFSH Home Medications Vitamin B-12 1 tab PO DAILY 09/08/18 [History Last Taken Unknown] vitamins A,C,M-ugpi-ishgpz [PreserVision AREDS] 2 tab PO DAILY 09/08/18 [History Last Taken Unknown] acetaminophen 1,000 mg PO Q6H PRN PRN tab 10/04/18 [Rx Last Taken Unknown] aspirin 81 mg PO DAILY@0800 tab.chew 10/04/18 [Rx Last Taken Unknown] potassium chloride 10 meq PO DAILYCM #30 tab 10/04/18 [Rx Last Taken Unknown] Allergy/AdvReac Type Severity Reaction Status Date / Time latex AdvReac Other Verified 11/26/20 20:17 ALL ATB AdvReac Other Uncoded 11/26/20 20:17 Social History (Updated 11/26/20 @ 22:[address] Deion Tabares MD) household members: none Smoking Status: Former smoker alcohol intake: current alcohol intake frequency: other substance use type: does not use ROS ROS ED Constitutional Constitutional ED: Denies chills, fever(s), subjective or sweats Cardiovascular Cardiovascular: Denies chest pain or palpitations Respiratory/Chest Respiratory/Chest: Denies cough or dyspnea Gastrointestinal Gastrointestinal: Denies nausea or vomiting Musculoskeletal Musculoskeletal: Reports other Details: Right foot pain and specifically great toe and right calf pain ; Denies back pain or neck pain Integumentary Denies Abrasions or rash Neurologic Neurologic: Denies paresthesias or weakness Hematologic/Lymphatic Hematologic/Lymphatic: Denies easy bleeding or easy bruising EXAM Physical Exam Const Vital Signs: 11/26/20 20:14 Temperature 98.2 F Temperature Source Oral Pulse Rate 115 H Respiratory Rate 20 H Blood Pressure 160/111 H Blood Pressure Mean 127 Pulse Ox 96 Oxygen Delivery Method Room Air Positive well nourished and well developed General Appearance ED: well developed and NAD HEENT normocephalic and atraumatic Eyes PERRL Eyes Narrative: Extract muscle intact. Conjunctive is pink. Sclerae anicteric. Neck full ROM Resp normal respiratory effort and clear to auscultation bilaterally Cardio regular rate, regular rhythm and no murmurs Back/Spine no CVA tenderness Cervical Spine: Negative for cervical spine tenderness Thoracic Spine / Upper Back: Negative for thoracic spinal tenderness Lumbar Spine / Lower Back: Negative for lumbar spinal tenderness Extremity Negative for normal to inspection Extremity Narrative: There is a contusion noted over the proximal phalanx of the right great toe. There is a hallux deformity noted. She complains of pain over the proximal pharynx of the great toe and first metatarsal. DP and PT pulse are palpable toes no pain the patient over the lateral medial malleolus. No pain ovation of the calcaneus. She has minimal soft tissue tenderness of the right calf. There is no joint line tenderness of the right knee. There is no pain the patient over the head of the fibula. There is no effusion. The patella is not ballotable. She is able to extend against gravity hold for 3 seconds. General Extremety ED: Negative for cyanosis or edema General Extremity: Negative for cyanosis or edema Neuro oriented x3, CN's II-XII intact bilaterally and no sensory deficits noted Sensorium / Orientation: alert Motor Exam: strength 5/5 throughout Psych mental status grossly normal Skin no wounds Lesions: no lesions Rashes: no rashes MDM MDM MDM Narrative Medical decision making narrative: Patient presents with foot trauma with contusion will evaluate for contusion versus fracture. X-ray was obtained. She also complained of calf pain. She was informed this is musculoskeletal in etiology. Radiography Diagnostic Testing: Radiology Impression Foot X-Ray 11/26/20 20:43 IMPRESSION: No evidence for acute fracture or dislocation Other findings as above Electronically Signed: Devaughn Mcnair MD at 21:43 EDT , Service support , Three-view x-ray of the foot was obtained and reveals a hallux deformity of the great toe and hammertoes of toes two through five. There is no acute process noted. Discharge Plan Triage Chief Complaint: Lower Extremity Injury ED Provider: Deion Tabares Dx/Rx/DC Orders Clinical Impression: Contusion of right foot Instructions: ED Foot Contusion Prescriptions: No Action vitamins A,C,Y-vhsc-hozxkz [PreserVision AREDS] 1 EACH capsule 2 tab PO DAILY RF: 0 Vitamin B-12 1 tab PO DAILY RF: 0 acetaminophen 500 MG tablet 1,000 mg PO Q6H PRN PRN (Reason: Mild Pain (-06/12)) RF: 0 aspirin 81 MG tablet,chewable 81 mg PO DAILY@0800 RF: 0 potassium chloride 10 MEQ tablet 10 meq PO DAILYCM Qty: 30 RF: 0 Primary Care Provider: Rodney Garcia III Referrals: Rodney Garcia III, MD [Primary Care Provider] - 1 Week if not improving Activity Restrictions/Additional Instructions: 1. Apply ice 6-8 times a day 2. Take Tylenol for pain Disposition Disposition: Home, Self Care
== END 2020-11-26 22:12 | disposition home or self-care (01) ==
PROVIDERS: Emergency Provider Emergency Medicine; PCP Family Medicine
DX: S90.31XA Contusion of right foot, initial encounter (principal); X58.XXXA Exposure to other specified factors, initial encounter; Z87.891 Personal history of nicotine dependence
CPT/HCPCS: 73630; 99284

== ENCOUNTER 2023-02-07 18:21 | Observation (INO) | payer MEDICARE, BC, SELFPAY ==
[2023-02-07 18:23] VITALS: BP 162/121; PULSE 101; RESP 18; TEMP 36.6; O2SAT 93; BMI 25.4
--- NOTE | 2023-02-07 19:01 | EKG12_ITS ---
Test Reason : DYSRHYTHMIA Blood Pressure : / mmHG Vent. Rate : 099 BPM Atrial Rate : 099 BPM P-R Int : 184 ms QRS Dur : 078 ms QT Int : 338 ms P-R-T Axes : 037 -16 044 degrees QTc Int : 433 ms Normal sinus rhythm Left atrial enlargement Left ventricular hypertrophy ( R in aVL ) Abnormal ECG Confirmed by ASHLEE ARAIZA, PRUDENCIO ([id number]), digital editor GRETA ANAYA ([id number]) on 02/15/2023 7:08:07 AM Referred By: Confirmed By:RANJAN ROSADO MD
--- NOTE | 2023-02-07 19:01 | CT_ITS ---
INDICATION: fall, right rib trauma EXAMINATION: CT CHEST WITHOUT CONTRAST - CT Chest W/O Contrast Injection TECHNIQUE: Helically acquired images were obtained of the chest. A radiation dose optimization technique was used for this scan. IV Contrast dosage and agent: None. COMPARISON: None. FINDINGS: LUNGS, PLEURA AND LARGE AIRWAYS: Some dependent bibasilar atelectasis. No pleural effusion or thickening. No pneumothorax. THYROID: No thyroid lesions. HEART AND PERICARDIUM: Cardiomegaly. No pericardial effusion. CORONARY ARTERIES: Coronary artery calcification is seen. VESSELS: 4.2 cm aneurysm ascending aorta likely from chronic hypertension or aortic stenosis. MEDIASTINUM AND ZION: No mediastinal or hilar adenopathy. Esophagus is unremarkable. Small hiatal hernia. UPPER ABDOMEN: No acute pathology. BONES: Chronic compression fracture of the mid thoracic spine with increased kyphosis. Mild dextroscoliosis of the thoracic spine with degenerative disc disease. CT/Chest without Contrast IMPRESSION: Some dependent bibasilar atelectasis. No obvious displaced right rib fracture, pneumothorax, hemothorax. Electronically Signed: Lyndon Herrera MD at 21:31 EST ,
--- NOTE | 2023-02-07 19:04 | ED.VIS.FALL ---
HPI HPI - Fall History of Present Illness Chief Complaint: Fall Informant: patient Narrative Narrative: Patient is a 89-year-old female with history of prior left hip fracture presenting for evaluation after a fall in her bathroom today. Patient states she was home alone. She states she was in the bathroom was rowing to reach for the grab bar when she became dizzy and fell. She states she was sitting beside the toilet. She states she was there for some hours but she is not certain. Eventually someone found her and was able to call 911. Patient is complaining of right-sided rib pain. It is worse with movements. She does not think is particularly worse when she takes of breath. She notes that she has had intermittent dizziness but is quite vague about her symptoms. She currently denies any chest pain, nausea, vomiting, leg swelling or rash. She denies any recent UTI symptoms. She states she lives home alone. She states that she normally ambulates independently but does have a walker in her bedroom. She does not take any medications stating she does not tolerate most medicines. She is not on any blood thinners. She denies hitting her head or any loss of consciousness. PFSH PFSH Medical History Ascending aortic aneurysm Former tobacco use Home Medications Vitamin B-12 1 tab PO DAILY supplement 09/08/18 [History Last Taken Unknown] vitamins A,C,V-tjrc-yroyqy 4,296 mcg-226 mg-90 mg capsule (PreserVision AREDS) 2 tab PO DAILY eyes 09/08/18 [History Last Taken Unknown] acetaminophen 500 mg tablet 1,000 mg (2 x 500 mg) PO Q6H PRN PRN Mild Pain (-06/12) 10/04/18 [Rx Last Taken Unknown] aspirin 81 mg chewable tablet 81 mg PO DAILY@0800 10/04/18 [Rx Last Taken Unknown] potassium chloride 10 mEq tablet,extended release(part/cryst) 10 meq PO DAILYCM #30 tabs 10/04/18 [Rx Last Taken Unknown] Allergy/AdvReac Type Severity Reaction Status Date / Time latex AdvReac Other Verified 11/26/20 20:17 Family History Mother Dementia Father , Patient denies any marketed paternal family history including heart disease, diabetes or cancer and states that her father passed at the age of 72 secondary to a trauma, hit by vehicle. No problems noted. Surgical History History of hip surgery Social History household members: none Smoking Status: Former smoker alcohol intake: current alcohol intake frequency: other substance use type: does not use ROS ROS ED Constitutional Constitutional ED: Denies chills or fever(s) Eyes Eyes: Denies change in vision ENT ENT ED: Denies sore throat Cardiovascular Cardiovascular: Reports other Details: Right-sided rib pain ; Denies chest pain or palpitations Respiratory/Chest Respiratory/Chest: Denies cough or dyspnea Gastrointestinal Gastrointestinal: Denies abdominal pain, nausea or vomiting Genitourinary Genitourinary ED: Denies dysuria or urinary frequency Musculoskeletal Musculoskeletal: Reports back pain; Denies arthralgias, myalgias or neck pain Integumentary Denies rash Neurologic Neurologic: Reports other Details: Dizziness ; Denies headache(s) or paresthesias Hematologic/Lymphatic Hematologic/Lymphatic: Denies easy bleeding or easy bruising EXAM Physical Exam Const Vital Signs: 02/07/23 18:23 02/07/23 18:26 02/07/23 20:22 Temperature 98 F Temperature Source Tympanic Pulse Rate 101 H 85 Respiratory Rate 18 16 Respiratory Effort Normal Respiratory Depth Normal Respiratory Pattern Normal Blood Pressure 162/121 H 120/78 Blood Pressure Mean 134 92 Pulse Ox 93 93 Oxygen Delivery Method Room Air Room Air Room Air Positive well nourished and well developed General Appearance ED: well developed and NAD HEENT Reports normocephalic and TM's normal bilaterally atraumatic; Negative for contusion, hematoma or tenderness Eyes PERRL and EOMs intact bilaterally Neck full ROM and supple General: Negative for tenderness Chest Wall inspection of chest normal and palpation of chest normal Chest Narrative: Patient points to her right lower posterior ribs as her area of pain rating to the lateral aspect but is not reproducible with palpation. No chest wall crepitus or flail chest appreciated. Resp normal respiratory effort and clear to auscultation bilaterally Cardio regular rate, regular rhythm and no murmurs GI non-tender and non-distended Palpation: soft; Negative for guarding Back/Spine no CVA tenderness Extremity Extremity Narrative: No obvious deformity of the extremities. No tenderness with palpation of the upper or lower extremities. No pain with logroll of the legs. No pain with range of motion of the upper extremities. Neuro oriented x3, moves all extremities, no focal motor deficits and no sensory deficits noted Sensorium / Orientation: alert Motor Exam: Negative for general weakness Psych mental status grossly normal and thought process normal Skin Lesions: no lesions Rashes: no rashes MDM MDM MDM Narrative Medical decision making narrative: Patient is evaluated for right-sided rib pain after fall. The fall seem to be preceded by an episode of dizziness. Patient is a bit vague on these details. Due to her advanced age and history of elevation of cardiac enzymes a cardiac work-up is obtained as well as a metabolic work-up looking for cause of her dizziness. CT of her chest is ordered to evaluate for any type of thoracic trauma. She is not any signs of head trauma denies hitting her head. Denies loss of conscious. I do not think she got a head CT at this time. She is not any focal neurologic deficits at this time. Work-up shows a very mild leukocytosis of 12.3. Normal kidney function, no significant [place] abnormalities and no anemia. High since he troponin is normal at 11 and 11 respectively. A low suspicion for ACS. Urinalysis shows 5-10 white blood cells but no bacteria. Suspect is contamination. She does have 15 ketones. Urine culture is sent but will not treat for UTI based on this urinalysis. Patient is given a liter of IV fluids in the ER. Declines anything strong for pain states she does not tolerate medicine. Is agreeable to Tylenol. Is also given a Lidoderm patch. Is not able to ambulate and is generally quite weak. Will require admission. She does have some intermittent desaturation in the ER and is requiring some low supplemental oxygen at rest. I suspect this is from splinting/not taking deep breaths associated with her chest wall injury. Chest CT does not show acute infiltrate. Patient discussed with my physician, Dr. Stewart. She is accepted to the medical floor. Lab Data Attestation: I reviewed the patient's lab results. Labs: Laboratory Results - last 24 hr 02/07/23 02/07/23 02/07/23 19:30 20:55 22:05 WBC 12.3 H RBC 4.96 Hgb 15.0 Hct 46.9 MCV 94.6 MCH 30.2 MCHC 32.0 RDW Std Deviation 45.0 H RDW Coeff of Christin 12.9 Plt Count 306 MPV 9.6 Immature Gran % (Auto) 0.400 Neut % (Auto) 83.0 H Lymph % (Auto) 10.7 L [place] % (Auto) 5.6 Eos % (Auto) 0.1 Baso % (Auto) 0.2 Absolute Neuts (auto) 10.2 H Absolute Lymphs (auto) 1.32 Nucleated RBC % 0 Sodium 142 Potassium 3.5 Chloride 108 H Carbon Dioxide 26.0 Anion Gap 8 BUN 15 Creatinine 0.60 Estim Creat Clear Calc 29.91 Est GFR (MDRD) Af Amer 122 Est GFR (MDRD) Non-Af 101 BUN/Creatinine Ratio 25.1 H Glucose 119 H Calcium 8.5 Magnesium 1.9 Total Bilirubin 0.40 AST 15 ALT 16 Alkaline Phosphatase 92 Total Creatine Kinase 47 Troponin I High Sens 11 11 Total Protein 8.0 Albumin 3.4 Globulin 4.6 H Albumin/Globulin Ratio 0.7 L Urine Color Yellow Urine Clarity Sl Cldy Urine pH 6.0 Ur Specific [place] 1.010 Urine Protein Negative Urine Glucose (UA) Normal Urine Ketones 15 H Urine Occult Blood 10 H Urine Nitrite Negative Urine Bilirubin Negative Urine Urobilinogen Normal Ur Leukocyte Esterase 100 H Urine RBC 0-5 SEEN Urine WBC 5-10 SEEN Ur Squamous Epith Cells 0-5 SEEN Urine Bacteria 0 SEEN Urine Mucus 0 SEEN Radiography Diagnostic Testing: Clinical Impression(s) from Imaging Studies Chest CT 02/07/23 19:01 IMPRESSION: Some dependent bibasilar atelectasis. No obvious displaced right rib fracture, pneumothorax, hemothorax. Electronically Signed: Lyndon Herrera MD at 21:31 EST , Rhythm Strip Rhythm Strip: Sinus Rhythm Rate: 99 Ectopy: None EKG Initial EKG: Attestation: I personally reviewed and interpreted this EKG as follows: Interpretation: Sinus Rhythm Comments: Normal sinus rhythm and rate of 99 bpm Left axis deviation LVH by criteria Left atrial enlargement Normal ST segment Management Discussion w/another healthcare provider: Hospitalist Discharge Plan Triage Chief Complaint: Fall ED Provider: Chelo Villagran Dx/Rx/DC Orders Clinical Impression: Debility, Fall, Contusion of right chest wall, Near syncope Primary Care Provider: Care Physician,No Primary Disposition Disposition: Acute Care Hospital [facility]
[2023-02-07 20:05] LABS: Absolute Lymphocyte Count 1.32 X10^3/uL (0.83-4.51); Absolute Neutrophil Count 10.2 X10^3/uL (2.0-7.7); Basophil# 0.03 X10^3/uL; Basophil% 0.2 % (0-1); Eosinophil# 0.01 X10^3/uL; Eosinophils% 0.1 % (0-5); Hematocrit 46.9 % (37-47); Lymphocyte # 1.32 X10^3/ul (0.83-4.51); Lymphocyte % 10.7 % (19-41); Mean Corpuscular Hgb 30.2 pg (27.0-32.0); Mean Corpuscular Volume 94.6 fL (81-99); Mean Platelet Vol. 9.6 fl (6.2-12.0); Monocyte# 0.69 X10^3/uL; Monocyte% 5.6 % (0-10); NRBC Flagged by Analyzer 0 % (0-5); Neutrophil # 10.22 X10^3/uL (2.7-7.7); Platelet Count 306 K/mm3 (150-450); RBC Distribution Width CV 12.9 % (11.6-14.6); Red Blood Count 4.96 M/mm3 (4.2-5.4); White Blood Count 12.3 K/mm3 (4.4-11.0)
[2023-02-07] MEDS: 0.9% Normal Saline (1000mL) 1,000 ML 1000 ML IV (20:15)
[2023-02-07] MEDS: Acetaminophen 325 MG Tablet 650 MG PO (20:15)
[2023-02-07 20:20] LABS: ALB/GLOB Ratio 0.7 RATIO (0.9-2.4); AST(SGOT) 15 U/L (15-37); Alanine Aminotransfer ALT/SGPT 16 U/L (13-56); Albumin, Serum 3.4 g/dL (3.2-5.0); Alkaline Phosphatase 92 U/L (45-117); Anion Gap 8 (5-15); BUN 15 mg/dL (7-18); BUN/Creat Ratio 25.1 RATIO (10-20); CPK Total, Creatine Kinase 47 U/L (26-192); Calcium,Total 8.5 mg/dL (8.5-10.1); Chloride 108 mmol/L (98-107); EST Glomerular Filtration Rate 101 mL/min (>60); Est Glom Filt Rate - Afr Amer 122 mL/min (>60); Estimated Creatinine Clearance 29.91 ml/min; Globulin 4.6 g/dL (2.2-4.2); Glucose 119 mg/dL (74-106); Potassium 3.5 mmol/L (3.5-5.1); Sodium Level 142 mmol/L (136-145); Troponin-I HS (w/2H Reflex) 11 pg/mL (3.0-54.0)
[2023-02-07 20:22] VITALS: BP 120/78; PULSE 85; RESP 16; O2SAT 93
[2023-02-07 21:01] LABS: Bacteria 0 SEEN /hpf (None Seen); Mucous, Urine 0 SEEN /hpf (<or=2+)
[2023-02-07 21:03] LABS: Glucose, Dipstick Normal (Normal); Ketone-Dipstick 15 mg/dl (Negative); Leukocyte Esterase-Dipstick 100 /ul (Negative); Nitrite-Dipstick Negative (Negative); Occult Blood-Urine 10 /ul (Negative); Protein-Dipstick Negative (Negative); Urine Bilirubin Dipstick Negative (Negative); Urine Urobilinogen Normal (Normal)
[2023-02-07 21:05] LABS: Color, Urine Yellow (Yellow); Urine Clarity Sl Cldy (Clear)
[2023-02-07 21:10] LABS: Red Blood Cells-Urine 0-5 SEEN /hpf (0-5); Squamous Epithelial Cells - UA 0-5 SEEN /hpf (5-10); White Blood Cells 5-10 SEEN /hpf (0-5)
[2023-02-07 21:59] LABS: Reflex Troponin-HS? (from REC) Y
--- NOTE | 2023-02-07 22:09 | PCM.HP.STD ---
HPI - General General Date of Admission: 02/07/23 Date of Service: 02/07/23 Chief Complaint: Fall, R sided rib pain, debility. HPI Narrative The patient is an 87 y/o F w/ PMHx: Ascending Aortic Aneurysm, Former tobacco use who presents to the [facility] ED on 02/07/23 with history of mechanical fall in her bathroom while at home alone with episode of dizziness while she was attempting to grab for the grab bar unfortunately falling sitting there for some time although unclear exact timeline eventually found by someone with EMS call. Patient did complain of right-sided rib discomfort, worse with movement. She does report some mild intermittent dizziness that has been ongoing but no recent episodes of any chest discomfort, nausea, emesis, diaphoresis. Patient normally ambulates independently but she does have a walker in her bedroom to use as needed. Patient is not on any chronic medications. She denied loss of consciousness or hitting her head. She primarily notes right sided rib pain but only when she is attempting to move with pain at rest seated in the ED bed 0 out of 10 but with any movement or activity attempts 10 out of 10 describing it as a dull aching throb. Work-up in the ED included T98, heart rate 101, BP 162/121, respiratory rate 18, 93% on room air, CBC with WBC 12.3, hemoglobin 15, platelets 306 with left shift, CMP with glucose 119 otherwise not marked appearing, troponin 11, urinalysis with cloudy appearing urine, specific gravity 1.010, ketone 15, occult blood 10, negative nitrite, leukocyte Estrace 100 however patient with only 5-10 urine WBCs and no urine bacteria noted, CT of the chest with some dependent basilar atelectasis with no obvious acute injury including any rib fractures, pneumothorax or hemothorax with a 4.2 cm aneurysm ascending aorta chronic appearing present as well as a chronic compression fracture of the mid thoracic spine with increased kyphosis and mild dextroscoliosis of thoracic spine with generative disc disease, EKG with with SR with LVH with no acute evidence of ischemia. In the ED patient ministered normal saline as well as Tylenol 650 mg p.o. x1. In the ED patient needing 2 person assist secondary to debility and pain. Also taking poor deep breathes. In the ED lidoderm patch applied. [facility] Medical History Ascending aortic aneurysm Former tobacco use Home Medications Vitamin B-12 1 tab PO DAILY supplement 09/08/18 [History Last Taken Unknown] vitamins A,C,Y-crol-nwvcnf 4,296 mcg-226 mg-90 mg capsule (PreserVision AREDS) 2 tab PO DAILY eyes 09/08/18 [History Last Taken Unknown] acetaminophen 500 mg tablet 1,000 mg (2 x 500 mg) PO Q6H PRN PRN Mild Pain (1-06/12) 10/04/18 [Rx Last Taken Unknown] aspirin 81 mg chewable tablet 81 mg PO DAILY@0800 10/04/18 [Rx Last Taken Unknown] potassium chloride 10 mEq tablet,extended release(part/cryst) 10 meq PO DAILYCM #30 tabs 10/04/18 [Rx Last Taken Unknown] Allergy/AdvReac Type Severity Reaction Status Date / Time latex AdvReac Other Verified 11/26/20 20:17 Family History Mother Dementia Father , Patient denies any marketed paternal family history including heart disease, diabetes or cancer and states that her father passed at the age of 72 secondary to a trauma, hit by vehicle. No problems noted. Surgical History History of hip surgery Social History household members: none Smoking Status: Former smoker alcohol intake: current alcohol intake frequency: other substance use type: does not use ROS ROS Narrative Admission Review of Systems: CONSTITUTIONAL: No weight loss, fever, chills, + weakness or fatigue. HEENT: Eyes: No visual loss, blurred vision, double vision or yellow sclerae. Ears, Nose, Throat: No hearing loss, sneezing, congestion, runny nose or sore throat. SKIN: Occasional staged ecchymoses.+ CARDIOVASCULAR: + Right-sided rib pain, worse with movement and increased respiratory effort attempts, lightheadedness and dizziness. Otherwise no specific chest pain, chest pressure or chest discomfort, palpitations, edema, orthopnea. RESPIRATORY: No shortness of breath, cough or sputum, wheezing, hemoptysis. GASTROINTESTINAL: No anorexia, nausea, vomiting or diarrhea, abdominal pain, melena, BRBPR. GENITOURINARY: No dysuria, frequency, urgency or retention. NEUROLOGICAL: + Lightheadedness/dizziness with fall. No headache, syncope, paralysis, ataxia, numbness or tingling in the extremities, focal weakness, change in bowel or bladder control, seizure. MUSCULOSKELETAL: + muscle, back pain, joint pain or stiffness. HEMATOLOGIC: No anemia. + Easy bleeding/bruising. LYMPHATICS: No enlarged nodes. No history of splenectomy. PSYCHIATRIC: No history of depression or anxiety. ENDOCRINOLOGIC: No reports of sweating, cold or heat intolerance. No polyuria or polydipsia. ALLERGIES: No history of asthma, hives, eczema or rhinitis. Vital Signs Vital Signs Vital Signs: 02/07/23 18:23 02/07/23 18:26 Temperature 98 F Temperature Source Tympanic Pulse Rate 101 H Respiratory Rate 18 Respiratory Effort Normal Respiratory Depth Normal Respiratory Pattern Normal Blood Pressure 162/121 H Blood Pressure Mean 134 Pulse Ox 93 Oxygen Delivery Method Room Air Room Air Weight Weight: 134 lb 11.239 oz Body Mass Index (BMI) 25.4 Physical Exam Narrative Physical Examination: General: Awake, alert, oriented x 3, remains cooperative and appropriate, seated upright in ED bed and at rest denies any pain. Skin: Normal color, normal turgor, no icterus, no cyanosis except occasional staged ecchymoses. HEENT: AT/NC, EOMI, PERRLA, mildly dry MM, no carotid bruits or JVD noted. Lungs: Decreased effort likely secondary to pain elicited with deep inspiratory effort, diminished, greater bases, no rales, ronchi or wheezing. Heart: Regular rate and rhythm; no gallop, rub audible, discomfort elicited with palpation of the right lateral rib region. Abdomen: Soft, NTTP, ND, mildly hyperactive BS, no HSM. Extremities: No cyanosis, clubbing, or edema. Neurological: Patient awake, alert, oriented as noted, cognitive function intact; pupils equally reactive to light and accommodation, cranial nerves grossly normal, moving all 4 extremities, no focal deficits, strength moderately to severely globally decreased secondary to acute presentation complaints Psychiatric: Affect appears flat, no acute evidence of depressive or anxiety feelings. Results Lab / Micro Data 02/07/23 19:30 02/07/23 19:30 Labs: Laboratory Results - last 24 hr 02/07/23 19:30: WBC 12.3 H, RBC 4.96, Hgb 15.0, Hct 46.9, MCV 94.6, MCH 30.2, MCHC 32.0, RDW Std Deviation 45.0 H, RDW Coeff of Christin 12.9, Plt Count 306, MPV 9.6, Immature Gran % (Auto) 0.400, Neut % (Auto) 83.0 H, Lymph % (Auto) 10.7 L, Waller % (Auto) 5.6, Eos % (Auto) 0.1, Baso % (Auto) 0.2, Absolute Neuts (auto) 10.2 H, Absolute Lymphs (auto) 1.32, Nucleated RBC % 0, Sodium 142, Potassium 3.5, Chloride 108 H, Carbon Dioxide 26.0, Anion Gap 8, BUN 15, Creatinine 0.60, Estim Creat Clear Calc 29.91, Est GFR (MDRD) Af Amer 122, Est GFR (MDRD) Non-Af 101, BUN/Creatinine Ratio 25.1 H, Glucose 119 H, Calcium 8.5, Total Bilirubin 0.40, AST 15, ALT 16, Alkaline Phosphatase 92, Total Creatine Kinase 47, Troponin I High Sens 11, Total Protein 8.0, Albumin 3.4, Globulin 4.6 H, Albumin/Globulin Ratio 0.7 L 02/07/23 20:55: Urine Color Yellow, Urine Clarity Sl Cldy, Urine pH 6.0, Ur Specific Thayer 1.010, Urine Protein Negative, Urine Glucose (UA) Normal, Urine Ketones 15 H, Urine Occult Blood 10 H, Urine Nitrite Negative, Urine Bilirubin Negative, Urine Urobilinogen Normal, Ur Leukocyte Esterase 100 H, Urine RBC 0-5 SEEN, Urine WBC 5-10 SEEN, Ur Squamous Epith Cells 0-5 SEEN, Urine Bacteria 0 SEEN, Urine Mucus 0 SEEN Radiology Impression Chest CT 02/07/23 19:01 IMPRESSION: Some dependent bibasilar atelectasis. No obvious displaced right rib fracture, pneumothorax, hemothorax. Electronically Signed: Lyndon Herrera MD at 21:31 EST , Assessment & Plan Assessment/Plan (1) Adult failure to thrive: PLAN: Plan The patient is an 87 y/o F w/ PMHx: Ascending Aortic Aneurysm, Former tobacco use who presents to the [facility] ED on 02/07/23 with history of mechanical fall in her bathroom while at home alone with episode of dizziness while she was attempting to grab for the grab bar unfortunately falling sitting there for some time although unclear exact timeline eventually found by someone with EMS call. #1. Adult FTT secondary to Episode Lightheadedness, dizziness with mechanical fall w/ right sided rib pain, intractable: Unclear etiololgy, EKG in ED w/ sinus rhythm without evidence of acute ischemia, CT chest with no acute concerning findings, troponin 11, will admit to PCU, place on a monitored bed to assure no acute myocardial infarction with serial cardiac enzymes and EKGs. Will maintain on fall precautions, obtain admission orthostatic and repeat if appropriate. Will judiciously hydrate. Will maintain lidoderm patch although may transition to topical pain regimen compound if not effective. Will obtain ECHO. PT/OT consultation to ascertain stability and discharge needs as well as case management/social work. #2. Elevated BP without hypertensive diagnosis: BP upon presentation notably elevated, unclear if secondary to acute fall, anxiety or stress or pain, will have as needed IV hydralazine in the interim but if becomes appropriate will add oral regimen. #3. Ascending Aortic Aneurysm: CT imaging with noted 4.2 cm ascending aortic aneurysm, encourage continued outpatient follow-up and monitoring as previously arranged. #4. Chronic compression fracture: CT imaging of the mid thoracic spine with increased kyphosis and mild dextroscoliosis of thoracic spine with generative disc disease, maintain on fall precautions, frequent positional changes, therapies consulted as noted. #5. Former tobacco usage: Encourage continued tobacco cessation. #6. DVT prophylaxis: Lovenox. #7. CODE status: Patient does not have healthcare power of civil attorney or living will in place but notes if it was necessary she would want at this time her sister to be her decision-maker. Discussed CODE status at length including difference between FULL code, DNR-CCA and DNR-CC status. Following discussions about the differences in these status, requested Full Code status. Advanced Care Planning Face to Face Time: 16 minutes. Charges/Coding Visit Charges Inpatient E&M: 82797 Init Hosp L2 Procedures Hospitalists Procedures: 22386 Advncd Care Plan 30 Min
[2023-02-07 22:10] VITALS: BP 123/88; PULSE 85; RESP 16; O2SAT 87; O2SAT 93
[2023-02-07] MEDS: Lidocaine 5% Patch 1 PATCH TOPICAL (22:18)
[2023-02-07 22:42] LABS: Magnesium 1.9 mg/dL (1.6-2.6); Troponin-I HS 11 pg/mL (3.0-54.0)
[2023-02-07 23:09] VITALS: BP 157/95; PULSE 93; RESP 18; TEMP 36.6; O2SAT 96
--- NOTE | 2023-02-07 23:19 | ECHOD_ITS ---
Reason For Study: SYNCOPE Procedure This was a 2D Doppler, Color Flow transthoracic echocardiogram. Technically difficult study due to deformity of chest wall and uncooperative patient. Exam performed portable in patient room. Left Ventricle Normal LV size. The estimated ejection fraction is 70 %. No regional wall motion abnormalities noted. Right Ventricle Normal RV size. Normal systolic function. Atria Normal left atrium. Normal right atrium. No doppler evidence for ASD. Mitral Valve There is no mitral valve stenosis. No mitral valve insufficiency. Tricuspid Valve There is no tricuspid stenosis. No tricuspid valve insufficiency. Aortic Valve There is no aortic stenosis. Trivial aortic valve insufficiency. Pulmonic Valve There is no pulmonic valvular stenosis. No pulmonic valve insufficiency. Great Vessels Mildly dilated aortic root. Pericardium/Pleural Trivial pericardial effusion. MMode/2D Measurements & Calculations LVIDd: 3.2 cm IVSd: 1.6 cm LVOT diam: 2.0 cm LVIDs: 3.0 cm LVPWd: 1.7 cm LVOT area: 3.2 cm2 FS: 7.2 % Ao root diam: 4.2 cm LAV(MOD-bp): 22.2 ml LVAd ap4: 17.2 cm2 LAV(MOD-bp) Indexed: 13.9 ml/m2 LVLd ap4: 6.4 cm LAV(MOD-sp2): 31.0 ml EDV(MOD-sp4): 39.6 ml LAV(MOD-sp4): 15.6 ml EDV(sp4-el): 39.3 ml LVAs ap4: 10.4 cm2 LVLs ap4: 5.2 cm ESV(MOD-sp4): 18.6 ml ESV(sp4-el): 17.7 ml EF(MOD-sp4): 53.0 % EF(sp4-el): 55.0 % SV(MOD-sp4): 21.0 ml SV(sp4-el): 21.6 ml LA A4 area: 9.3 cm2 LA dimension(2D): 3.5 cm RA A4 area: 3.9 cm2 Time Measurements MV dec time: 0.14 sec Doppler Measurements & Calculations MV E max anil: 39.5 cm/sec Med Peak E' Anil: 5.0 cm/sec MV V2 max: 114.8 cm/sec MV A max anil: 86.6 cm/sec E/E' med: 8.0 MV max P.3 mmHg MV E/A: 0.46 MV V2 mean: 85.5 cm/sec MV mean P.1 mmHg MV V2 VTI: 50.2 cm MVA(VTI): 1.00 cm2 MV dec slope: 383.3 cm/sec2 Ao V2 max: 105.5 cm/sec LV V1 max: 94.4 cm/sec Ao max P.4 mmHg LV V1 max P.6 mmHg Ao V2 mean: 76.1 cm/sec LV V1 mean P.5 mmHg Ao mean P.6 mmHg LV V1 mean: 56.5 cm/sec Ao V2 VTI: 17.4 cm LV V1 VTI: 15.7 cm AV (velocity ratio): 0.90 CHRIS(I,D): 2.9 cm2 CHRIS(V,D): 2.9 cm2 SV(LVOT): 50.0 ml ECHO/Echo Complete Interpretation Summary The estimated ejection fraction is 70 %. Trivial aortic valve insufficiency. Mildly dilated aortic root. Ordering Physician: Kristin Stewart Referring Physician: ALFRED PCP Performed By: Meliza Rob RCS
[2023-02-07 23:21] VITALS: BMI 24.6
[2023-02-08] VITALS (8 sets, daily range): BP systolic 142–159; BP diastolic 82–113; PULSE 61–106; RESP 14–18; TEMP 36.6–36.7; O2SAT 88–96; BMI 24.7
[2023-02-08] MEDS: 0.9% Normal Saline (1000mL) 1,000 ML 75 ML IV (00:58)
[2023-02-08 01:50] LABS: Troponin-I HS 14 pg/mL (3.0-54.0)
[2023-02-08] MEDS: Acetaminophen 325 MG Tablet 650 MG PO ×2 (04:38→15:21)
[2023-02-08 05:20] LABS: Absolute Lymphocyte Count 2.12 X10^3/uL (0.83-4.51); Absolute Neutrophil Count 5.5 X10^3/uL (2.0-7.7); Basophil# 0.04 X10^3/uL; Basophil% 0.5 % (0-1); Eosinophil# 0.06 X10^3/uL; Eosinophils% 0.7 % (0-5); Hematocrit 44.4 % (37-47); Lymphocyte # 2.12 X10^3/ul (0.83-4.51); Lymphocyte % 24.6 % (19-41); Mean Corp Hgb Conc 31.5 g/dL (32-36); Mean Corpuscular Hgb 30.4 pg (27.0-32.0); Mean Corpuscular Volume 96.3 fL (81-99); Mean Platelet Vol. 9.7 fl (6.2-12.0); Monocyte# 0.85 X10^3/uL; Monocyte% 9.8 % (0-10); NRBC Flagged by Analyzer 0 % (0-5); Neutrophil # 5.52 X10^3/uL (2.7-7.7); Neutrophil % 63.9 % (47-70); Platelet Count 284 K/mm3 (150-450); RBC Distribution Width CV 13.2 % (11.6-14.6); RBC Distribution Width SD 46.5 fl (35.1-43.9); Red Blood Count 4.61 M/mm3 (4.2-5.4); White Blood Count 8.6 K/mm3 (4.4-11.0)
[2023-02-08 06:00] LABS: ALB/GLOB Ratio 0.7 RATIO (0.9-2.4); AST(SGOT) 14 U/L (15-37); Alanine Aminotransfer ALT/SGPT 15 U/L (13-56); Alkaline Phosphatase 84 U/L (45-117); Anion Gap 8 (5-15); BUN 14 mg/dL (7-18); BUN/Creat Ratio 23.6 RATIO (10-20); Calcium,Total 7.9 mg/dL (8.5-10.1); Chloride 110 mmol/L (98-107); Creatinine, Serum 0.59 mg/dL (0.55-1.02); EST Glomerular Filtration Rate 102 mL/min (>60); Est Glom Filt Rate - Afr Amer 123 mL/min (>60); Estimated Creatinine Clearance 31.35 ml/min; Globulin 4.5 g/dL (2.2-4.2); Glucose 104 mg/dL (74-106); Potassium 3.2 mmol/L (3.5-5.1); Protein, Total 7.5 g/dL (6.4-8.2); Sodium Level 141 mmol/L (136-145)
[2023-02-08] MEDS: Potassium Chloride Oral Tablet 20 MEQ 40 MEQ PO (08:43)
[2023-02-08] MEDS: Enoxaparin 30 MG/0.3 ML Syringe SC (08:43)
[2023-02-08] MEDS: Menthol/Lanolin/Calamine/Znox 113 GM Tube 1 APPLIC TOPICAL ×2 (08:43→15:07)
[2023-02-08] MEDS: Aspirin 81 MG TAB.CHEW PO (08:43)
[2023-02-08] MEDS: Lidocaine 5% Patch 1 PATCH TOPICAL (08:47)
--- NOTE | 2023-02-08 13:00 | CASEMGMT ---
Addendum entered by Wendy He 02/08/23 19:31: 1340: ANTHONY COLON placed call to pt's niece, Sonali. She states she and her sister, Kelly, live in [place]. She states they were just in [place] last month to see pt. Kelly calls pt daily to check on her. She reports pt's in and that pt does live alone. Sonali states @ pt's baseline, she is forgetful, but states, but she does know what's going on. Sonali states she takes care of all of pt's bills and that they are all set up on auto pay except for [employer]gas [employer]. She states she has spoken w/pt about do POA paperwork but pt is very adamant about not wanting to complete this and states she has a violent fit when I try to talk to her about it. Sonali confirms pt has a sister who lives in [place] and also a brother and states, They don't get along 100% and stated that when pt got admitted to the hospital she didn't even want Sonali to notify them. Sonali states there are 2 people who can get into pt's home and they bring her food and that it was one of them that found her and called the squad. Sonali states she was made aware that pt told the doctor that she lives w/her mother, but that she spoke w/pt about it and pt does not remember saying that. Discussed discharge planning w/Sonali and questions answered re: SNF and HHC. Sonali made aware HHC unable to be set up unless she is established w/a PCP. Pt had been made aware of that by this RN DARLENE as well. Sonali states, I don't think she's at the point that someone needs to make her decision. She's going to have to make that decision on her own. I can talk to her about it, but it's her decision. She asked for options to be presented to pt and discuss it w/her. Sonali denies having other questions/concerns at this time and asked ANTHONY COLON to call her back once a decision was made re: discharge. Sonali was provided w/[facility] In-home PCP provider as a possible option for pt and a list of local PCP's was provided to pt as well when ANTHONY COLON spoke w/her earlier. Original Note: RN DARLENE SHREDDING MACHINE OPERATOR CM to room to meet with patient for initial transition planning/care coordination assessment. ANTHONY COLON introduced self and role at [facility].? Pt voices understanding and consents to assessment at this time.? Pt sitting up in jenn in room in no distress at this time.? Pt is alert and able to provide the following information but had difficulty recalling other information. PCP: Pt states she has no PCP. She used to see Dr Garcia, but he retired and she states she has not f/u with anyone since then. Specialists: none Pharmacy: Pt states she does not take any medications. Insurance: [facility], [place]. Prescription Benefit:? Pt states, I don't know. Living Will/HPOA:? Pt states she has not completed these. LNOK: Pt states her has but she does not remember how long ago. She states she has one sister who lives in [place], but states, She has her own problems. She states she has 2 nieces, Sonali and Kelly, who live in [place]. Living Arrangements: Pt lives alone. She states she takes care of herself. She stated initially that her groceries are delivered but unable to recall who orders them, stating, I think someone brings them in to me. She states living alone seems to be a problem. When ANTHONY COLON asked her what she means by this, she stated, It's not a problem for me, but for other people. She then stated, I am not mentally the way I used to be. Transportation: Pt states she does not drive and states she has not driven for years DME: Pt states she has a cane but was not using it. No home O2. HHC/SNF: Has been to [facility]CU in the past. No hx of HHC. Pt initially stated she feels she would benefit from going somewhere for therapy for awhile to get stronger before returning home and requested it be somewhere in [place]. Discussed [facility]'s 3 [place] in-patient criteria for SNF. Pt states she is not sure if she would be able to afford it and inquiring what the cost would be. She was made aware a list can be provided to her for her to review and information on cost could be provided. Pt gave permission for ANTHONY COLON to contact either one of her nieces to discuss her care/discharge plan. PLAN: ?RYAN DUPONT RN CM
--- NOTE | 2023-02-08 15:10 | TREXTCAR_ITS ---
Diet Diet Order/Speech Therapy: 02/07/23 23:19 Diet: Regular - General Food consistency:: Regular Liquid Consistency:: Regular/Thin Routine Orders/Code Status Routine Lab Work: [facility] (on 02/09/23) Code Status: Full Code Therapies Weight Bearing: Full weight bearing (with walker if needed) Physical Therapy: Eval and Treat Occupational Therapy: Eval and Treat Problem/Diagnosis (1) Adult failure to thrive: Status: Acute Code(s): R62.7 - Adult failure to thrive (2) Near syncope: Status: Acute Code(s): R55 - Syncope and collapse (3) Debility: Status: Acute Code(s): R53.81 - Other malaise (4) Aortic aneurysm: Status: Acute Code(s): I71.9 - Aortic aneurysm of unspecified site, without rupture Plan: Detected on this admit (5) Contusion of right chest wall: Status: Acute Code(s): S20.211A - Contusion of right front wall of thorax, initial encounter (6) Cognitive impairment: Status: Chronic Code(s): R41.89 - Other symptoms and signs involving cognitive functions and awareness Allergies/Procedures Done in Hospital Allergies latex Adverse Reaction (Verified 11/26/20 20:17) Other Procedures: 2-D Echocardiogram Type of Care/Length of Stay Estimated LOS: Convalescent Care Less Than 30 days Type of Care Needed: Skilled Rehab Potential: Good Prognosis: Good Additional Orders/Day of Discharge H&P will serve as current which was dated: 02/07/23 Day of Discharge: 02/08/23 Dietary and Speech Recommendations Dietitian Recommendations/Changes: Continue regular diet as ordered. ONS as needed if PO established inadequate at meals. Discharge Plan Admission Admit Date/Time: 02/07/23 22:10 Primary Reason for Your Visit: acute debility Attending Provider: Alejandro Downing Primary Care Provider: Care Physician,No Primary Consulting Providers: Kristin Stewart Discharge Orders/Prescriptions Prescriptions: New acetaminophen 325 mg Tablet 650 mg PO Q4H PRN PRN (Reason: Fever, pain 1-10/10) Qty: 0 0RF lidocaine 5 % Adhesive Patch,Medicated 1 patch topical DAILY Qty: 0 0RF Protocol: *Topical Application Instructions APPLICATION INSTRUCTIONS: to affected region menthol-zinc oxide [Calmoseptine] 0.44-20.6 % Ointment 1 applic topical 4X/DAY Qty: 0 0RF Protocol: *Topical Application Instructions APPLICATION INSTRUCTIONS: apply to affected region Continued PreserVision AREDS 1 EACH capsule 2 tab PO DAILY Discontinued Vitamin B-12 1 tab PO DAILY acetaminophen 500 MG tablet 1,000 mg PO Q6H PRN PRN (Reason: Mild Pain (-06/12)) 0RF aspirin 81 MG tablet,chewable 81 mg PO DAILY@0800 0RF Patient Comments: states she takes anacin, but unsure of dosage; states she used to take baby aspirin but doesn't anymore potassium chloride 10 MEQ tablet 10 meq PO DAILYCM Qty: 30 0RF Patient Comments: states she used to, but i don't think i do now Referrals / Follow Up: Care Physician,No Primary [Primary Care Provider] - Disposition Disposition (needs filled in before D/C Order can be placed): Inpatient Rehab Unit/Facility
--- NOTE | 2023-02-08 15:20 | PCM.DC.SUM ---
Providers Date of Admission: 02/07/23 Date of Discharge: 02/08/23 Primary Care Physician: No Primary Care Phys Reason For Visit: NEAR SYNCOPE/LH Diagnosis Discharge Diagnosis (1) Adult failure to thrive: Status: Acute Code(s): R62.7 - Adult failure to thrive (2) Near syncope: Status: Deleted Code(s): R55 - Syncope and collapse (3) Debility: Status: Acute Code(s): R53.81 - Other malaise (4) Aortic aneurysm: Status: Inactive Code(s): I71.9 - Aortic aneurysm of unspecified site, without rupture Plan: Detected on this admit (5) Contusion of right chest wall: Status: Acute Code(s): S20.211A - Contusion of right front wall of thorax, initial encounter (6) Cognitive impairment: Status: Chronic Code(s): R41.89 - Other symptoms and signs involving cognitive functions and awareness Plan 1. Acute on chronic debility #2 near syncope #3 thoracic aortic aneurysm #4 contusion of right chest wall #5 cognitive impairment Medications at Discharge Home Medications vitamins A,C,J-gamh-emqrvj 4,296 mcg-226 mg-90 mg capsule (PreserVision AREDS) 2 tab PO DAILY eyes 09/08/18 acetaminophen 325 mg tablet 650 mg (2 x 325 mg) PO Q4H PRN PRN Fever, pain 1-01/12 #0 tabs 02/08/23 lidocaine 5 % topical patch 1 patch topical DAILY pain #0 ea 02/08/23 menthol 0.44 %-zinc oxide 20.6 % topical ointment (Calmoseptine) 1 applic topical 4X/DAY Skin protection #0 grams 02/08/23 Hospital Course Operations None Procedures None Summary of Care Provided Minutes Spent on Discharge: 32 Hospital Course: This 87-year-old white female was seen in the emergency room at [facility] after sustaining a mechanical fall at home, she lives alone, patient was on her floor for an unknown period of time, she was found by nursing aides and brought in to the emergency room by squad for evaluation, patient was complaining of right-sided rib pain worse with movements, work-up in the emergency room revealed no head trauma, CT of her chest was ordered which did not show any acute infiltrate or rib fracture. Labs showed a mild leukocytosis, normal kidney function was noted to be present, urinalysis did not indicate an acute urinary tract infection. Patient was given IV fluids in the emergency room, she was not able to ambulate due to generalized weakness, patient was placed in observation status on PCU and seen by PT and OT, her family requested placement in a rehab facility/ECF short-term. Patient had confusion during her hospital stay and showed evidence of cognitive impairment. On 02/08/2023, patient was seen and examined: On examination she appeared her stated age, she does not appear to be in any distress. Vital signs as documented. Skin warm and dry and without overt rashes. Neck without JVD, thyroid appears normal, trachea is midline, neck is supple. Lungs clear, normal air movement was noted. Heart exam notable for regular rhythm, normal sounds and absence of murmurs, rubs or gallops. Abdomen unremarkable and without evidence of organomegaly, masses, or abdominal aortic enlargement, bowel sounds are present in all 4 quadrants, no abdominal tenderness was noted. Extremities nonedematous, no cyanosis was noted, no clubbing was noted. Neuro: Cranial nerves II through XII are grossly intact, no focal motor deficits were noted, sensation to light touch and pinprick is intact, motor exam 5/5 throughout. Psych: Patient is alert and confused, she shows no evidence of agitation or depression. On 02/08/2023, patient was seen and examined and felt to be stable for discharge to the rehab unit at [facility] Weight / BMI Weight Weight: 61.3 kg Body Mass Index (BMI) 24.7 ABG / Lab / Microbiology Data 02/08/23 04:50 02/08/23 04:50 Laboratory: Laboratory Results - last 24 hr 02/07/23 19:30: WBC 12.3 H, RBC 4.96, Hgb 15.0, Hct 46.9, MCV 94.6, MCH 30.2, MCHC 32.0, RDW Std Deviation 45.0 H, RDW Coeff of Christin 12.9, Plt Count 306, MPV 9.6, Immature Gran % (Auto) 0.400, Neut % (Auto) 83.0 H, Lymph % (Auto) 10.7 L, [place] % (Auto) 5.6, Eos % (Auto) 0.1, Baso % (Auto) 0.2, Absolute Neuts (auto) 10.2 H, Absolute Lymphs (auto) 1.32, Nucleated RBC % 0, Sodium 142, Potassium 3.5, Chloride 108 H, Carbon Dioxide 26.0, Anion Gap 8, BUN 15, Creatinine 0.60, Estim Creat Clear Calc 29.91, Est GFR (MDRD) Af Amer 122, Est GFR (MDRD) Non-Af 101, BUN/Creatinine Ratio 25.1 H, Glucose 119 H, Calcium 8.5, Total Bilirubin 0.40, AST 15, ALT 16, Alkaline Phosphatase 92, Total Creatine Kinase 47, Troponin I High Sens 11, Total Protein 8.0, Albumin 3.4, Globulin 4.6 H, Albumin/Globulin Ratio 0.7 L 02/07/23 20:55: Urine Color Yellow, Urine Clarity Sl Cldy, Urine pH 6.0, Ur Specific [place] 1.010, Urine Protein Negative, Urine Glucose (UA) Normal, Urine Ketones 15 H, Urine Occult Blood 10 H, Urine Nitrite Negative, Urine Bilirubin Negative, Urine Urobilinogen Normal, Ur Leukocyte Esterase 100 H, Urine RBC 0-5 SEEN, Urine WBC 5-10 SEEN, Ur Squamous Epith Cells 0-5 SEEN, Urine Bacteria 0 SEEN, Urine Mucus 0 SEEN 02/07/23 22:05: Magnesium 1.9, Troponin I High Sens 11 02/08/23 01:11: Troponin I High Sens 14 02/08/23 04:50: WBC 8.6, RBC 4.61, Hgb 14.0, Hct 44.4, MCV 96.3, MCH 30.4, MCHC 31.5 L, RDW Std Deviation 46.5 H, RDW Coeff of Christin 13.2, Plt Count 284, MPV 9.7, Immature Gran % (Auto) 0.500, Neut % (Auto) 63.9, Lymph % (Auto) 24.6, [place] % (Auto) 9.8, Eos % (Auto) 0.7, Baso % (Auto) 0.5, Absolute Neuts (auto) 5.5, Absolute Lymphs (auto) 2.12, Nucleated RBC % 0, Sodium 141, Potassium 3.2 L, Chloride 110 H, Carbon Dioxide 23.0, Anion Gap 8, BUN 14, Creatinine 0.59, Estim Creat Clear Calc 31.35, Est GFR (MDRD) Af Amer 123, Est GFR (MDRD) Non-Af 102, BUN/Creatinine Ratio 23.6 H, Glucose 104, Calcium 7.9 L, Total Bilirubin 0.50, AST 14 L, ALT 15, Alkaline Phosphatase 84, Total Protein 7.5, Albumin 3.0 L, Globulin 4.5 H, Albumin/Globulin Ratio 0.7 L Radiography Diagnostic Testing: Radiology Impression Chest CT 02/07/23 19:01 IMPRESSION: Some dependent bibasilar atelectasis. No obvious displaced right rib fracture, pneumothorax, hemothorax. Electronically Signed: Lyndon Herrera MD at 21:31 EST , Echocardiogram 02/07/23 23:19 Interpretation Summary The estimated ejection fraction is 70 %. Trivial aortic valve insufficiency. Mildly dilated aortic root. Ordering Physician: Kristin Stewart Referring Physician: ALFRED PCP Performed By: Meliza Rob RCS Meaningful Use Info Meaningful Use Diagnoses (Choose all that apply): None applicable Discharge Plan Admission Admit Date/Time: 02/07/23 22:10 Primary Reason for Your Visit: acute debility Attending Provider: Alejandro Downing Primary Care Provider: Care Physician,No Primary Consulting Providers: Kristin Stewart Discharge Orders/Prescriptions Prescriptions: New acetaminophen 325 mg Tablet 650 mg PO Q4H PRN PRN (Reason: Fever, pain 1-01/12) Qty: 0 0RF lidocaine 5 % Adhesive Patch,Medicated 1 patch topical DAILY Qty: 0 0RF Protocol: *Topical Application Instructions APPLICATION INSTRUCTIONS: to affected region menthol-zinc oxide [Calmoseptine] 0.44-20.6 % Ointment 1 applic topical 4X/DAY Qty: 0 0RF Protocol: *Topical Application Instructions APPLICATION INSTRUCTIONS: apply to affected region Continued PreserVision AREDS 1 EACH capsule 2 tab PO DAILY Discontinued Vitamin B-12 1 tab PO DAILY acetaminophen 500 MG tablet 1,000 mg PO Q6H PRN PRN (Reason: Mild Pain (-06/12)) 0RF aspirin 81 MG tablet,chewable 81 mg PO DAILY@0800 0RF Patient Comments: states she takes anacin, but unsure of dosage; states she used to take baby aspirin but doesn't anymore potassium chloride 10 MEQ tablet 10 meq PO DAILYCM Qty: 30 0RF Patient Comments: states she used to, but i don't think i do now Referrals / Follow Up: Care Physician,No Primary [Primary Care Provider] - Disposition Disposition (needs filled in before D/C Order can be placed): Inpatient Rehab Unit/Facility Charges/Coding Visit Charges Inpatient E&M: 28466 Disch Hosp >30min
--- NOTE | 2023-02-08 15:38 | CASEMGMT ---
ANTHONY COLON NOTE: Call placed to pt's niece, Sonali. She was notified pt will be discharging to [facility] today. Donna DUPONT RN, CM
== END 2023-02-08 16:47 ==
LOC: ED 19:11 → PCU 22:21
PROVIDERS: Admitting Provider Family Medicine; Emergency Provider Emergency Medicine; Visit Provider Internal Medicine
DX: R53.81 Other malaise (principal); I71.40 Abdominal aortic aneurysm, without rupture, unspecified; R55 Syncope and collapse; Z87.891 Personal history of nicotine dependence; S20.20XA Contusion of thorax, unspecified, initial encounter; W18.11XA Fall from or off toilet without subsequent striking against object, initial encounter; R41.89 Other symptoms and signs involving cognitive functions and awareness; R42 Dizziness and giddiness; R62.7 Adult failure to thrive; Z79.82 Long term (current) use of aspirin; R41.0 Disorientation, unspecified; Y92.002 Bathroom of unspecified non-institutional (private) residence as the place of occurrence of the external cause; R03.0 Elevated blood-pressure reading, without diagnosis of hypertension
CPT/HCPCS: 36415; 71250; 80053; 81001; 82550; 83735; 84484; 85025; 87086; 93005; 93306; 94668; 96360; 96361; 96372; 97162; 97166; 97802; 99221; 99285; J7030; A4216; G0378

== ENCOUNTER 2023-02-08 16:40 | Inpatient (IN) | payer MEDICARE, BC, SELFPAY ==
[2023-02-08 17:02] VITALS: BP 153/93; PULSE 82; RESP 16; TEMP 36.3; O2SAT 91
[2023-02-08 19:05] LABS: Bacteria 0 SEEN /hpf (None Seen); Mucous, Urine 0 SEEN /hpf (<or=2+); Red Blood Cells-Urine 0 SEEN /hpf (0-5); Squamous Epithelial Cells - UA 0 SEEN /hpf (5-10); White Blood Cells 0 SEEN /hpf (0-5)
[2023-02-08] MEDS: Lidocaine Jelly 2% 20 ML Syringe (URO-JET) 1 APPLIC TOPICAL (19:06)
[2023-02-08] MEDS: Menthol/Lanolin/Calamine/Znox 113 GM Tube 1 APPLIC TOPICAL ×2 (19:07→21:59)
[2023-02-08 19:17] LABS: Color, Urine Yellow (Yellow); Glucose, Dipstick Normal (Normal); Ketone-Dipstick 5 mg/dl (Negative); Leukocyte Esterase-Dipstick Negative /ul (Negative); Nitrite-Dipstick Negative (Negative); Occult Blood-Urine Negative /ul (Negative); Protein-Dipstick Negative (Negative); Urine Bilirubin Dipstick Negative (Negative); Urine Clarity Clear (Clear); Urine Urobilinogen Normal (Normal); Urine pH 6.5 (5.0 - 8.0)
[2023-02-08 19:35] VITALS: BP 148/92; PULSE 82; RESP 16; TEMP 36.4; O2SAT 92
--- NOTE | 2023-02-08 19:38 | PCM.HP.STD ---
[facility] - General General Date of Admission: 02/08/23 Date of Service: 02/08/23 Chief Complaint: Inability to ambulate after a fall at home on 02/07/23 HPI Narrative FOREIGN GOODWIN, is a 87 F with a PMH of an ascending aorta aneurysm and remote tobacco dependence. She fell in her bathroom on 02/07/23 and could not get up. A friend helped her get to her bed but, later she was unable to get out of the bed and EMS was called. At presentation to the emergency room she was complaining of right-sided rib pain. The pain increased with movement. She has difficulty with memory and her hx was somewhat vague. She takes a few vitamins and Potassium Chloride 10 MEQ daily. She lives by herself. She has no POA. Her and she had 1 dtr and she . She has friends that help her and bring her meals. She used to see Dr. Rodney Garcia but, has not had a PCP since he retired. Chest CT done in the ER showed some dependent bibasilar atelectasis with no obvious displaced right rib fractures, pneumothorax or hemothorax. X-rays of the right foot showed no acute fracture or dislocation. Significant lab in the emergency department included a WBC count of 12.3 with a left shift and an elevated hemoglobin at 15. The BUN was 15 with a creatinine of 0.6. The urine showed 0-5 RBCs and 5-10 WBCs with no bacteria and 0-5 squamous epithelial cells. Urine culture is still pending at the time of this exam. She was seen by PT/OT and they felt she needed to come to rehab. She apparently does not use her walker at home and she hangs clothes from it. When PT/OT saw her there were clothes hanging on the walker in her room. She is forgetful and has a difficult time staying on task. She could not tell them the year. She has had other falls recently and would benefit from PT/OT/ST and the . She will need a PCP and a POA and maybe some assistance at home. She was transferred to the acute rehab unit at [facility] on 02/08/23 for 3 hours if therapy daily to strengthen her and to assist her in finding some help at home and establishing a POA and getting a PCP. She has not been able to take a bath in a few years. She is afraid to get in the tub and so she washes in the sink. A bladder scan was done at presentation to rehab and she was retaining. After urinating there was still 200 cc in the urine. She was straight cath'd and we are sending a specimen for UA and culture. The urine appeared concentrated but, it was clear. She had a lot of pain with the catheter and the vulva was swollen and excoriated. 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 There is stenosis of the vaginal opening. She denies pruritus and DC but, she is a very poor historian. We did not have a pediatric speculum for me to do a vaginal exam. Will consult Dr. Lawson. [facility] Medical History (Updated 02/08/23 @ 20:[address] Tanya Shen DO) Aortic aneurysm Ascending aortic aneurysm Cardiac enzymes elevated Closed left hip fracture Congenital stenosis of vagina Former tobacco use Gastroenteritis Troponin I above reference range Home Medications vitamins A,C,P-swst-clcsvg 4,296 mcg-226 mg-90 mg capsule (PreserVision AREDS) 2 tab PO DAILY eyes 09/08/18 [History Last Taken 02/08/23] acetaminophen 325 mg tablet 650 mg (2 x 325 mg) PO Q4H PRN PRN Fever, pain 1-01/12 #0 tabs 02/08/23 [Rx Last Taken 02/08/23] lidocaine 5 % topical patch 1 patch topical DAILY pain #0 ea 02/08/23 [Rx Last Taken 02/08/23] menthol 0.44 %-zinc oxide 20.6 % topical ointment (Calmoseptine) 1 applic topical 4X/DAY Skin protection #0 grams 02/08/23 [Rx Last Taken 02/08/23] Allergy/AdvReac Type Severity Reaction Status Date / Time latex AdvReac Other Verified 11/26/20 20:17 Family History Mother Dementia Father , Patient denies any marketed paternal family history including heart disease, diabetes or cancer and states that her father passed at the age of 72 secondary to a trauma, hit by vehicle. No problems noted. Surgical History (Updated 02/08/23 @ 20:[address] Tanya Shen DO) H/O aortic aneurysm repair History of hip surgery Social History (Updated 02/08/23 @ 20:[address] Tanya Shen, ) household members: none housing: house number of children: 1 current occupational status: retired current occupation: she was an actress in summer theater. Her dtr has Smoking Status: Former smoker how long ago did patient quit smokin years ago. alcohol intake: current alcohol intake frequency: other substance use type: does not use ROS Review of Systems ROS Unobtainable: other Details: abbreviated due to mental status. I suspect she has dementia and hx is sketchy at best. ; Denies due to encephalopathy, due to endotracheal tube, due to mental condition or due to mental status Constitutional Constitutional: Reports weakness; Denies anorexia, change in weight, chills, fatigue, fever(s) or night sweats Eyes Eyes: Reports blurry vision; Denies change in vision, eye pain or loss of vision ENT HEENT: Reports abnormal hearing and hearing loss; Denies dysphagia, headache(s), nasal congestion or sore throat Cardiovascular Cardiovascular: Reports chest pain; Denies dyspnea on exertion, edema, lightheadedness, orthopnea, palpitations, paroxysmal nocturnal dyspnea or syncope Respiratory/Chest Respiratory/Chest: Denies cough, dyspnea, shortness of breath at rest, shortness of breath with exertion or wheezing Gastrointestinal Gastrointestinal: Reports constipation; Denies abdominal pain, diarrhea, dyspepsia, hematemesis, hematochezia, nausea or vomiting Genitourinary Genitourinary: Reports urinary incontinence and other Details: She wears a pad sometimes at home and I don't know how often she changes it. ; Denies dysuria, hematuria, nocturia, urinary frequency, urinary hesitancy or urinary urgency Musculoskeletal Musculoskeletal: Reports muscle weakness and other Details: R rib pain ; Denies back pain, joint pain, joint swelling or neck pain Integumentary Integumentary: Reports dry skin; Denies jaundice, nail changes or unusual bruising Neurologic Neurologic: Reports abnormal hearing, confusion, memory loss and weakness; Denies disequilibrium, dizziness, focal weakness, headache(s), paresthesias, seizures or tremor(s) Psychiatric Psychiatric: Denies anxiety, depression, homicidal ideation or suicidal ideation Endocrine Endocrinology: Denies change in body appearance, polydipsia or polyuria Hematologic/Lymphatic Hematologic/Lymphatic: Denies easy bleeding, easy bruising or lymphadenopathy Allergic/Immunologic Allergic/Immunologic: Denies rhinitis, eczemia or asthma Vital Signs Vital Signs Vital Signs: 02/08/23 17:02 02/08/23 19:35 Temperature 97.4 F L 97.6 F L Temperature Source Temporal Temporal Pulse Rate 82 82 Respiratory Rate 16 16 Blood Pressure 153/93 H 148/92 H Blood Pressure Mean 113 110 Blood Pressure Source Monitor Monitor Blood Pressure Position Semi-Fowlers Semi-Fowlers Blood Pressure Location Left Arm Left Arm Pulse Ox 91 92 Oxygen Delivery Method Room Air Room Air Weight Weight: 136 lb 7.458 oz Physical Exam Const alert Constitutional Narrative: She knew it is February and she was able to tell me the year ton. She was also able to tell me that she is 87. She has very poor recent memory but, she does better with the past memory. She recognizes that she is losing her memory. General Appearance: cooperative and disheveled Nutritional Appearance: Negative for cachectic or overweight HEENT normocephalic, head/scalp atraumatic and external nose normal HEENT Narrative: Dry MM. She appears younger than her stated age. She is UMKUMIUT and often needs me to repeat what I said. Mouth: malodorous breath Eyes PERRL, EOMs intact bilaterally, conjunctivae normal and no scleral icterus Eyes Narrative: No mattering of the eyelashes and no DC from the eyes. General Eye: normal appearance of both eyes Neck supple General: trachea midline Chest Chest Narrative: She has an increased AP diameter of the chest. Chest: symmetrical chest wall rise Resp normal respiratory effort and normal air movement Resp Narrative: CTA anterior and lateral and few coarse crackles in the bases posteriorly. She is not tachypneic and has no labored respirations. She is able to speak in complete sentences. Cardio regular rate, regular rhythm, no murmurs and no gallops Cardio Narrative: No ectopy GI normal to inspection, nondistended, normoactive bowel sounds, soft to palpation and non-tender GI Narrative: No guarding with palpation Narrative: The vulva is swollen and painful to touch. She had a lot of discomfort with straight catheterization. There is excoriation and she appears to have Lichen Planus. The introitus is stenotic. There was no DC and no odor. Extremity no calf tenderness and no pedal edema Extremity Narrative: pedal pulses are excellent. Radial pulses are mildly diminished. No clubbing of the nails. No cyanosis. Skin Skin Narrative: Dry skin. Hair is also dry and thinnnig Neuro CN's II-XII intact bilaterally, moves all extremities and no focal motor deficits Neuro Narrative: She has a short attention span and loses her train of thought easily. She is UMKUM[place]UT and I keep having to repeat things I say. She sometimes makes good eye contact and other times she is staring at the other side of the room. She is very talkative. Speech is fluent. She is calm with no agitation and no restlessness. Psych denies hallucinations, denies homicidal ideation and denies suicidal ideation Appearance: disheveled Attitude: calm Results Lab / Micro Data Labs: Laboratory Results - last 24 hr 02/08/23 18:45: Urine Color Yellow, Urine Clarity Clear, Urine pH 6.5, Ur Specific [place] 1.010, Urine Protein Negative, Urine Glucose (UA) Normal, Urine Ketones 5 H, Urine Occult Blood Negative, Urine Nitrite Negative, Urine Bilirubin Negative, Urine Urobilinogen Normal, Ur Leukocyte Esterase Negative, Urine RBC 0 SEEN, Urine WBC 0 SEEN, Ur Squamous Epith Cells 0 SEEN, Urine Bacteria 0 SEEN, Urine Mucus 0 SEEN Assessment & Plan Assessment/Plan (1) Debility: (2) Fall: QUALIFIERS: Encounter type: subsequent encounter Qualified Code(s): W19.XXXD - Unspecified fall, subsequent encounter (3) Contusion of right chest wall: QUALIFIERS: Encounter type: subsequent encounter Qualified Code(s): S20.211D - Contusion of right front wall of thorax, subsequent encounter (4) Contusion of right foot: QUALIFIERS: Encounter type: subsequent encounter Qualified Code(s): S90.31XD - Contusion of right foot, subsequent encounter (5) Cognitive impairment: (6) Dehydration: (7) Hypertrophic lichen planus of vulva: PLAN: Suspected. Will obtain consultation with Dr. Lawson. (8) Congenital stenosis of vagina: (9) Hypokalemia: PLAN: 3.2 on the morning of 02/08/23. (10) Decreased creatinine clearance: PLAN: The A1.35 (11) Hypocalcemia: (12) Urine retention: PLAN: Plan PLAN PT for gait stability OT for ADL's ST for evaluation Analgesics as needed Bowel protocol Fall precautions Assess for Anxiety/Depression GI prophylaxis-not necessary at this time she has no nausea, vomiting or abdominal pain. DVT prophylaxis with NIDIA hose and heparin 5,000 units SQ BID Follow up with PCP and neurology following DC from [facility]. She will need to get a PAP. She last saw Dr. Rodney Garcia who retired a few years ago. AM lab including CMP, CBC, Mag and Phos Also get a TSH, B12, ROS and ESR as part of dementia W/U. She should also at some point have a CT brain. SW will be heavily involved in care of this patient due to cognitive deficit and the fact that she has no family, no PCP and no POA. She is obviously not doing well at home and may need an ECF to keep her safe. If W/U for dementia is negative will consider starting Aricept. The UA done tonight is negative for WBC's and bacteria. Straight cath as needed for urine retention > [address] Alejandro Monk for evaluation for suspected lichen planus. Charges/Coding Visit Charges Inpatient E&M: 93188 Init Hosp L2
[2023-02-08 20:14] VITALS: O2SAT 92
[2023-02-08] MEDS: Acetaminophen 325 MG Tablet 650 MG PO (21:54)
[2023-02-08] MEDS: Senna/Docusate Sodium 1 Tablet 2 TABLET PO (21:55)
[2023-02-08 22:00] VITALS: PULSE 84; O2SAT 92
[2023-02-08] MEDS: Heparin Injection (Vial) 5,000 UNIT/ML VIAL 5000 UNIT SC (22:06)
[2023-02-09] MEDS: 0.9% Saline Lock 10 ML Syringe IV ×2 (01:41→22:29)
[2023-02-09] MEDS: Acetaminophen 325 MG Tablet 650 MG PO ×4 (02:16→22:32)
--- NOTE | 2023-02-09 03:58 | NURSING ---
Pt having difficulty voiding. Staff urged pt to try since she hadn't gone since str/cathed at end of dayshift. Pt felt no urgency and sat on BSC for awhile but only voided 200mL. BS showed 368mL remaining. Str/cathed for 400mL. Pt was very tense throughout procedure and tolerated ok.
[2023-02-09 06:05] LABS: Hematocrit 39.2 % (37-47); Hemoglobin 12.4 g/dL (12.0-15.0); Mean Corp Hgb Conc 31.6 g/dL (32-36); Mean Corpuscular Hgb 30.6 pg (27.0-32.0); Mean Corpuscular Volume 96.8 fL (81-99); Mean Platelet Vol. 9.9 fl (6.2-12.0); Platelet Count 242 K/mm3 (150-450); RBC Distribution Width CV 13.2 % (11.6-14.6); RBC Distribution Width SD 47.3 fl (35.1-43.9); Red Blood Count 4.05 M/mm3 (4.2-5.4); White Blood Count 7.3 K/mm3 (4.4-11.0)
[2023-02-09 06:49] LABS: ALB/GLOB Ratio 0.7 RATIO (0.9-2.4); AST(SGOT) 14 U/L (15-37); Alanine Aminotransfer ALT/SGPT 13 U/L (13-56); Albumin, Serum 2.7 g/dL (3.2-5.0); Alkaline Phosphatase 68 U/L (45-117); Anion Gap 3 (5-15); BUN 10 mg/dL (7-18); Calcium,Total 8.1 mg/dL (8.5-10.1); Chloride 113 mmol/L (98-107); Creatinine, Serum 0.42 mg/dL (0.55-1.02); EST Glomerular Filtration Rate 153 mL/min (>60); Est Glom Filt Rate - Afr Amer 185 mL/min (>60); Estimated Creatinine Clearance 31.35 ml/min; Glucose 95 mg/dL (74-106); Magnesium 2.1 mg/dL (1.6-2.6); Phosphorus 2.4 mg/dL (2.5-4.9); Potassium 3.4 mmol/L (3.5-5.1); Protein, Total 6.7 g/dL (6.4-8.2); Sodium Level 143 mmol/L (136-145); Thyroid Stim Hormone (TSH) 1.27 uIU/mL (0.358-3.74)
[2023-02-09 07:34] VITALS: BP 154/89; PULSE 83; RESP 15; TEMP 36.8; O2SAT 91
[2023-02-09 08:04] LABS: Vitamin B12 264 pg/mL (211-911)
[2023-02-09] MEDS: Menthol/Lanolin/Calamine/Znox 113 GM Tube 1 APPLIC TOPICAL ×2 (08:29→21:45)
[2023-02-09] MEDS: Senna/Docusate Sodium 1 Tablet 2 TABLET PO ×2 (08:32→22:24)
[2023-02-09] MEDS: Multivitamin (Healthy Eyes) Capsule 1 CAP PO (08:32)
[2023-02-09] MEDS: Lidocaine 5% Patch 1 PATCH TOPICAL (08:32)
[2023-02-09] MEDS: Heparin Injection (Vial) 5,000 UNIT/ML VIAL 5000 UNIT SC ×2 (08:33→22:23)
--- NOTE | 2023-02-09 08:57 | PN_ITS ---
Subjective Subjective Patient seen, examined. She is sleepy, does not want to talk. She has no new problems, concerns, issues, complaints. Objective Data Objective Data Vital Signs: Vital Signs Temp Pulse Resp BP Pulse Ox O2 Del Method 98.2 F 83 15 154/89 H 91 Room Air 02/09/23 07:34 02/09/23 07:34 02/09/23 07:34 02/09/23 07:34 02/09/23 07:34 02/09/23 07:34 Oxygen Delivery Method Room Air Weight: 61.9 kg Intake & Output: Intake and Output for Last 24 Hours 02/07/23 02/08/23 02/09/23 23:59 23:59 23:59 Intake Total 120 / 120 500 / 500 Output Total 650 / 650 200 / 200 Balance -530 / -530 300 / 300 Lab / Micro Data Attestation: I reviewed the patient's lab results. 02/09/23 05:14 02/09/23 05:14 Labs: Laboratory Results - last 24 hr 02/08/23 18:45: Urine Color Yellow, Urine Clarity Clear, Urine pH 6.5, Ur Specific [place] 1.010, Urine Protein Negative, Urine Glucose (UA) Normal, Urine Ketones 5 H, Urine Occult Blood Negative, Urine Nitrite Negative, Urine Bilirubin Negative, Urine Urobilinogen Normal, Ur Leukocyte Esterase Negative, Urine RBC 0 SEEN, Urine WBC 0 SEEN, Ur Squamous Epith Cells 0 SEEN, Urine Bacteria 0 SEEN, Urine Mucus 0 SEEN 02/09/23 05:14: WBC 7.3, RBC 4.05 L, Hgb 12.4, Hct 39.2, MCV 96.8, MCH 30.6, MCHC 31.6 L, RDW Std Deviation 47.3 H, RDW Coeff of Christin 13.2, Plt Count 242, MPV 9.9, Sodium 143, Potassium 3.4 L, Chloride 113 H, Carbon Dioxide 27.0, Anion Gap 3 L, BUN 10, Creatinine 0.42 L, Estim Creat Clear Calc 31.35, Est GFR (MDRD) Af Amer 185, Est GFR (MDRD) Non-Af 153, BUN/Creatinine Ratio 24.0 H, Glucose 95, Calcium 8.1 L, Phosphorus 2.4 L, Magnesium 2.1, Total Bilirubin 0.50, AST 14 L, ALT 13, Alkaline Phosphatase 68, Total Protein 6.7, Albumin 2.7 L, Globulin 4.0, Albumin/Globulin Ratio 0.7 L, Vitamin B12 264, TSH 1.27 Physical Exam Const alert General Appearance: cooperative HEENT normocephalic Eyes PERRL and EOMs intact bilaterally Neck supple, no JVD and no carotid bruits Resp normal respiratory effort, normal air movement and clear to auscultation bilaterally Cardio regular rate and regular rhythm GI normal to inspection, nondistended, normoactive bowel sounds, non-tender and non-distended Extremity normal capillary refill General Extremity: Negative for edema Skin no rashes or lesions noted General Skin Exam: no breakdown Psych affect normal Appearance: appropriate Assessment & Plan Assessment/Plan (1) Debility: (2) Fall: QUALIFIERS: Encounter type: subsequent encounter Qualified Code(s): W19.XXXD - Unspecified fall, subsequent encounter (3) Urine retention: (4) Lichen planus: (5) Mild cognitive impairment: (6) Macular degeneration: (7) Hypokalemia: PLAN: Plan 87 year old female with below past medical history hospitalized for fall, weakness, failure to thrive, admitted to for 3 hours daily rehabilitation, strengthening, prior to disposition determination. * Debility - PT/OT/ST. * Pain - Tylenol 650mg q4 prn, Lidoderm patch 1 patch topical daily. * Bowel - Senna/colace 2 tablets twice daily, MOM 30ml po x 1 prn, Dulcolax 10mg pr x 1 prn. * DVT prophylaxis - Heparin 5,000 units q12h. * Urinary retention - Rx Tamsulosin 0.4mg daily, consult Dr. Lovelace. * Lichen planus - Consult Dr. Lovelace. * Skin irritation - Calmoseptine topical bid. * Macular degeneration - Healthy Eyes 1 capsule daily. * Hypokalemia - Rx KCL ER 20meq daily, BMP in 2 days. Capacity Capacity Assessment Tool Can the patient make a choice & communicate that choice?: Unable to Determine Can the patient understand benefits, risks and alternatives?: Unable to Determine Can the patient make a logical, rational choice?: Unable to Determine Is the choice the patient makes consistent w/ their values?: Unable to Determine Is there an impending, emergent risk to the patient?: No Does the patient have an Advance Directive?: No Is there a Surrogate Available?: No i.e. HCPOA: No i.e. close relative (spouse, child, parent, sibling)?: No
[2023-02-09 09:05] VITALS: BMI 25.1
[2023-02-09] MEDS: Potassium Chloride Oral Tablet 20 MEQ PO (12:25)
--- NOTE | 2023-02-09 14:44 | PCM.RU.PYE ---
Admission Information Primary Diagnosis:: Falls, Failure to thrive. Status Changes from Prescreening?: No changes Identified Actual Problem List:: Falls, Pain, ALteration in Cmfrt, Cognitve Impr/Memory Loss, Mobility Impaired, Self Care Deficit, Ineffective Communication, Know.Dfct/Disease Process and Alteration-Leisure Activ. Potential Problem List:: DVT, Bleeding, Infection, UTI, Aspiration, Falls, Skin Integrity and Depression Risk of Complications DVT: NIDIA Helm Bleeding: Monitor Lab Values, Nursing to Teach Precautions for anti-coagulation therapy., Wound, if applicable, to be assessed every shift. and Stroke patients assessed for lethargy or change in status. Infection: Clinical Staff to Monitor for S/S of infection: and S/S of infection include fever, redness, warmth, etc. Urinary Tract Infection: Monitor for frequency, burning, discomfort, or incontinence. and Nursing will obtain urine sample for urinalysis and C&S when ordered. Aspiration: Clinical staff will monitor for coughing, drooling, congestion., Speech will evaluate swallowing and dsyphasia. and Nursing will monitor patient swallowing during meals. Falls: Patient will be evaluated for Fall Precautions and Patient will be placed on Fall Precautions as indicated per protocol. Skin Breakdown: Nursing will assess skin daily using assessment tool. and Nursing will place on Skin Breakdown Precautions as indicated. Pain: Clinical staff will assess patient's pain level per protocol., Medications will be given, if needed, and the pain level reassessed. and Other methods: Massage, distraction, decrease stimulus, etc. used PRN. Plan of Care Patient requires physician specializing in physical medicine and rehab oversight to provide close medical supervision of rehab issues including: Pain Management, Sleep Problems, Bowel and Bladder, Medical and co-morbidity Management, DVT prophylaxis, Rehabilitation Leadership and Coordination of treatment team Patient needs Physical Therapy: For a minimum of 1 hour and At least 5 out of 7 days Patient needs Physical Therapy to improve:: Mobility, Strengthening, Transfers, Stretching, ROM, Endurance, Stairs, Gait and Balance Patient needs Occupational Therapy: For a minimum of 1 hour and At least 5 out of 7 days Patient needs Occupational Therapy to improve ADL's incl.: Eating, Grooming, Bathing, Dressing, Toileting, Toilet transfers, Community Reintegration, Higher functioning activities, Household tasks, Adaptive Equipment and Other activities as determined Patient requires speech therapy: For a minimum of 1 hour and At least 5 out of 7 days Patient requires speech therapy for: Swallowing, Cognition, Language Skills and Compensatory Strategies Patient requires 24/ Rehabilitation Nursing for: Pain Issues, Identifying and preventing risk factors, Monitoring and reporting current medical conditions, Assisting with ambulation, transfer, and all ADL's, Teaching patients about disease process and medications, Family teaching, Providing safe environment, Bowel and Bladder Issues, Skin integrity and Medication Management Patient needs International Marketing Manager/ Case Management for: Discharge Planning, Arranging Home Equipment or Services and Family Interventions Patient needs Dietary and Nutrition Services for: Adequate Nutrition, Nutritional Supplements and Nutritional Education Goals Patient will remain: free from falls and or injury at time of discharge. Patient will perform bed mobility at: - (Supervision. ) Patient will complete transfers from bed to chair at: - (CGA.) Patient will ambulate: 100 feet and - (CGA/) Patient will complete upper body dressing at: - (Supervision.) Patient will complete lower body dressing at: - (Supervision. ) Patient will complete toileting at: - (Supervision. ) Patient will perform bathing at: - (Supervision. ) Patient will complete grooming at: - (Supervision. ) Patient will achieve: - (2 steps, SBA.) Patient will have pain level of: of 3 or less Patient's skin will: remain intact and free from infection. Patient will receive: adequate nutrition. Discharge Planning Pt Prognosis for Sig. Practical Improv. w/in Reasonable Time: Fair Estimated Length of stay (days): 14 Anticipated D/C Destination: Assisted Living Facility Was Preadmission Assessment Accurate?: Yes
[2023-02-09] MEDS: Tamsulosin HCl 0.4 MG Capsule PO (16:53)
[2023-02-09 17:55] VITALS: O2SAT 94
[2023-02-09 20:02] VITALS: BP 172/84; PULSE 74; RESP 15; TEMP 36.6; O2SAT 93
[2023-02-09 22:00] VITALS: PULSE 83; RESP 14; O2SAT 93
[2023-02-10] MEDS: Acetaminophen 325 MG Tablet 650 MG PO (03:04)
[2023-02-10 08:05] VITALS: BP 141/97; PULSE 96; RESP 18; TEMP 36.6; O2SAT 91
[2023-02-10] MEDS: traMADol 50 MG Tablet PO (08:55)
[2023-02-10] MEDS: Multivitamin (Healthy Eyes) Capsule 1 CAP PO (08:55)
[2023-02-10] MEDS: Potassium Chloride Oral Tablet 20 MEQ PO (08:55)
[2023-02-10] MEDS: Senna/Docusate Sodium 1 Tablet 2 TABLET PO ×2 (08:56→20:04)
[2023-02-10] MEDS: Heparin Injection (Vial) 5,000 UNIT/ML VIAL 5000 UNIT SC ×2 (08:56→20:04)
[2023-02-10] MEDS: Lidocaine 5% Patch 1 PATCH TOPICAL (08:56)
[2023-02-10] MEDS: Menthol/Lanolin/Calamine/Znox 113 GM Tube 1 APPLIC TOPICAL ×2 (08:57→20:10)
[2023-02-10 09:59] VITALS: BMI 25.2
[2023-02-10 12:09] LABS: ANTINUCLEAR ANTIBODIES DIRECT Negative (Negative)
[2023-02-10] MEDS: Acetaminophen 500 MG Tablet 1000 MG PO ×2 (14:10→20:03)
[2023-02-10] MEDS: Tamsulosin HCl 0.4 MG Capsule PO (17:23)
--- NOTE | 2023-02-10 19:35 | PN_ITS ---
Subjective Subjective Patient seen, examined. She avoids eye contact. Indwelling cain catheter for urinary retention. Objective Data Objective Data Vital Signs: Vital Signs Temp Pulse Resp BP Pulse Ox O2 Del Method 97.8 F 96 18 141/97 H 91 Room Air 02/10/23 08:05 02/10/23 08:05 02/10/23 08:05 02/10/23 08:05 02/10/23 08:05 02/10/23 08:05 Oxygen Delivery Method Room Air Weight: 62.7 kg Body Mass Index (BMI) 25.2 Intake & Output: Intake and Output for Last 24 Hours 02/08/23 02/09/23 02/10/23 23:59 23:59 23:59 Intake Total 120 / 120 1360 / 1360 720 / 720 Output Total 650 / 650 900 / 900 200 / 200 Balance -530 / -530 460 / 460 520 / 520 Lab / Micro Data Attestation: I reviewed the patient's lab results. 02/09/23 05:14 02/09/23 05:14 Labs: Laboratory Results - last 24 hr 02/09/23 05:14: ROS Screen Negative Micro: Microbiology 02/08/23 18:45 Urine, Catheterized Urine Culture - Final Culture exhibits no growth. Physical Exam Const alert General Appearance: cooperative HEENT normocephalic Eyes PERRL and EOMs intact bilaterally Neck supple, no JVD and no carotid bruits Resp normal respiratory effort, normal air movement and clear to auscultation bilaterally Cardio regular rate and regular rhythm GI normal to inspection, nondistended, normoactive bowel sounds, non-tender and non-distended Bladder / Kidney Exam: catheter in place urethral Extremity normal capillary refill General Extremity: Negative for edema Skin no rashes or lesions noted General Skin Exam: no breakdown Psych affect normal Appearance: appropriate Assessment & Plan Assessment/Plan (1) Debility: (2) Fall: QUALIFIERS: Encounter type: subsequent encounter Qualified Code(s): W19.XXXD - Unspecified fall, subsequent encounter (3) Urine retention: (4) Lichen planus: (5) Mild cognitive impairment: (6) Macular degeneration: (7) Hypokalemia: PLAN: Plan 87 year old female with below past medical history hospitalized for fall, weakn ess, failure to thrive, admitted to for 3 hours daily rehabilitation, strengthening, prior to disposition determination. * Debility - PT/OT/ST. * Pain - Tylenol 650mg q4 prn, Lidoderm patch 1 patch topical daily. * Bowel - Senna/colace 2 tablets twice daily, MOM 30ml po x 1 prn, Dulcolax 10mg pr x 1 prn. * DVT prophylaxis - Heparin 5,000 units q12h. * Urinary retention - Rx Tamsulosin 0.4mg daily, indwelling cain catheter placed, consult Dr. Lovelace. * Lichen planus - Consult Dr. Lovelace. * Skin irritation - Calmoseptine topical bid. * Macular degeneration - Healthy Eyes 1 capsule daily. * Hypokalemia - Rx KCL ER 20meq daily, BMP in 2 days. Capacity Capacity Assessment Tool Can the patient make a choice & communicate that choice?: Yes Can the patient understand benefits, risks and alternatives?: Yes Can the patient make a logical, rational choice?: Yes Is the choice the patient makes consistent w/ their values?: Yes Is there an impending, emergent risk to the patient?: No Does the patient have an Advance Directive?: No Is there a Surrogate Available?: No i.e. HCPOA: No i.e. close relative (spouse, child, parent, sibling)?: No
[2023-02-10] MEDS: MELATONIN 10 MG TABLET PO (20:04)
[2023-02-10 20:14] VITALS: BP 129/85; PULSE 79; RESP 16; TEMP 36.2; O2SAT 92
[2023-02-11] MEDS: traMADol 50 MG Tablet PO ×3 (00:16→22:43)
[2023-02-11] MEDS: Acetaminophen 500 MG Tablet 1000 MG PO ×3 (05:20→20:05)
[2023-02-11 06:00] VITALS: BMI 25.2
[2023-02-11 06:31] LABS: Anion Gap 4 (5-15); BUN 16 mg/dL (7-18); BUN/Creat Ratio 31.4 RATIO (10-20); Calcium,Total 8.2 mg/dL (8.5-10.1); Chloride 109 mmol/L (98-107); Creatinine, Serum 0.51 mg/dL (0.55-1.02); EST Glomerular Filtration Rate 121 mL/min (>60); Est Glom Filt Rate - Afr Amer 146 mL/min (>60); Estimated Creatinine Clearance 31.35 ml/min; Glucose 103 mg/dL (74-106); Potassium 3.8 mmol/L (3.5-5.1); Sodium Level 139 mmol/L (136-145)
--- NOTE | 2023-02-11 08:53 | CASEMGMT ---
Social Work IDT met with patient and niece, Sonali, via conference call for Team meeting. Discussed patient's progress in PT/OT/ST/SN. Educated to Medicare approval of 13 days with DC 02/21. IDT expressed concern about pt returning home alone. Broached that topic but will continue to follow progress to make plans closer to DC. SW inquired about HCPOA as pt stated the niece, Sonali was POA. However, Sonali adamantly denied and was clearly uncomfortable/disinterested in taking on that responsibility. Sonali stated pt has a sister and brother that would be NOK. SW agreed and was unaware of those family members. Sonali provided this worker with contact information for both. SW will contact siblings, as pt's cognition is not well enough to make informed decisions at this time. SW added contacts into chart. SW phoned sister, Lola, to inquire about knowledge of pt's admission and involvement with pt. Sister stated she has spoken to pt recently, but no fully aware of PLOF as pt typically keeps to herself and does not accept a lot of help. Sister confirmed her two niece's have been mostly involved, but they live in [place]. Sister lives in [place]. However, her is in a SNF and that is sister's priority. SW explained sister and brother are NOK since there is no proof of HCPOA and d/t pt's cognition, the siblings will need to assist with making medical decisions, including her discharge. Sister did also not express overwillingness to assist with that decision. SW explained current recommendations d/t to poor vision and cognition, are 24/7 care. Educated to options of nonskilled HHC, [place] or SNF. Sister stated pt would not want a facility and would choose to remain in her home. SW offered to provide sister with list of [employer] as family coordinates those services since they are OOP cost. Sister stated she will visit pt tonight and speak with pt further. SW to leave resources in pt's room for sister's retrieval. SW educated sister to Team meeting next and encouraged sister's involvement. Sister agreed to attend. However, SW noted that is close to pt's DC date of 02/21 and this worker will be contacting sister prior to Team meeting to plan for DC. Sister was avoidant with responses and continued to default to the pt. SW phoned brotherRandolph. Immediately after this worker's introduction and inquiry if brother knew of pt's admission, brother began providing this worker with family history of dynamics, pt's personality, the way pt has treated her family, and the estrangement between all family members. SW provided supportive listening. After brother provided history, SW educated to reason for call and needing brother and sisters input for DC planning decision making as pt lacks that current capacity to make a well-rounded decision. Brother stated he will talk with sister Lola and will plan a trip to [place] to get things taken care of. SW cautioned, although sister will be in attendance at Team meeting 02/18, that does not allow ample time for DC plans to be made with a DC of 02/21, and encouraged discussion/visit/decisions made earlier in the week. Brother expressed understanding and will collaborate with sister Lola. Brother expressed appreciation for phone call. SW will continue to follow for DC planning. JAS LeW
[2023-02-11] MEDS: Lidocaine 5% Patch 1 PATCH TOPICAL (09:01)
[2023-02-11] MEDS: Multivitamin (Healthy Eyes) Capsule 1 CAP PO (09:02)
[2023-02-11] MEDS: Potassium Chloride Oral Tablet 20 MEQ PO (09:02)
[2023-02-11] MEDS: Heparin Injection (Vial) 5,000 UNIT/ML VIAL 5000 UNIT SC ×2 (09:02→20:06)
[2023-02-11] MEDS: Senna/Docusate Sodium 1 Tablet 2 TABLET PO (09:02)
[2023-02-11] MEDS: Menthol/Lanolin/Calamine/Znox 113 GM Tube 1 APPLIC TOPICAL ×2 (09:11→20:07)
[2023-02-11 10:00] VITALS: BP 154/80; PULSE 78; RESP 16; TEMP 36.6; O2SAT 93
--- NOTE | 2023-02-11 12:28 | PCM.CONS.GEN ---
Assessment & Plan Assessment/Plan (1) Incomplete bladder emptying: (2) Lichen sclerosus: PLAN: Plan With a postvoid residual of 200 cc, I would be fine with Rouse catheter removal and following the residual. We will start clobetasol ointment twice daily would recommend use for at least 6 weeks. HPI Consult Data Date of Consult: 02/11/23 HPI Narrative Reason for Consultation: Urinary retention, vaginitis HPI Narrative: FOREIGN GOODWIN, is a 87 F who was admitted to rehab after a fall that she was unable to get up from. She is a poor historian. At the time of evaluation she was found to have a postvoid residual of 200 cc and her vulva was excoriated and tender. The patient denies any urologic history. The only time she can recall having a catheter is postsurgical after her hip procedure. She denies a history of urinary tract infections, hematuria, previous retention, incontinence etc. She reports that her vagina does not cause her significant discomfort at this time. [facility] Medical History (Updated 02/11/23 @ 12:[address] Fay Lovelace MD) Aortic aneurysm Ascending aortic aneurysm Cardiac enzymes elevated Closed left hip fracture Congenital stenosis of vagina Former tobacco use Gastroenteritis Incomplete bladder emptying Lichen sclerosus Troponin I above reference range Home Medications vitamins A,C,E-qigz-zfeplr 4,296 mcg-226 mg-90 mg capsule (PreserVision AREDS) 2 tab PO DAILY eyes 09/08/18 [History Last Taken 02/08/23] acetaminophen 325 mg tablet 650 mg (2 x 325 mg) PO Q4H PRN PRN Fever, pain 1-01/12 #0 tabs 02/08/23 [Rx Last Taken 02/08/23] lidocaine 5 % topical patch 1 patch topical DAILY pain #0 ea 02/08/23 [Rx Last Taken 02/08/23] menthol 0.44 %-zinc oxide 20.6 % topical ointment (Calmoseptine) 1 applic topical 4X/DAY Skin protection #0 grams 02/08/23 [Rx Last Taken 02/08/23] Allergy/AdvReac Type Severity Reaction Status Date / Time latex AdvReac Other Verified 11/26/20 20:17 Family History Mother Dementia Father , Patient denies any marketed paternal family history including heart disease, diabetes or cancer and states that her father passed at the age of 72 secondary to a trauma, hit by vehicle. No problems noted. Surgical History (Updated 02/08/23 @ 20:[address] Tanya Shen DO) H/O aortic aneurysm repair History of hip surgery Social History (Updated 02/08/23 @ 20:[address] Tanya Shen DO) household members: none housing: house number of children: 1 current occupational status: retired current occupation: she was an actress in summer theater. Her dtr has Smoking Status: Former smoker how long ago did patient quit smokin years ago. 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 ENT HEENT: Reports systems reviewed and no addt'l complaints, except as documented Cardiovascular Cardiovascular: Reports systems reviewed and no addt'l complaints, except as documented Respiratory/Chest Respiratory/Chest: Reports systems reviewed and no addt'l complaints, except as documented Gastrointestinal Gastrointestinal: Reports constipation and other Details: No constipation here, but she has had constipation in the past at home Genitourinary Genitourinary: Denies hematuria, urinary frequency or urinary incontinence Musculoskeletal Musculoskeletal: Reports muscle weakness Integumentary Integumentary: Reports systems reviewed and no addt'l complaints, except as documented Neurologic Neurologic: Reports systems reviewed and no addt'l complaints, except as documented Psychiatric Psychiatric: Reports cognitive impairment Physical Exam Const alert, oriented x3 and no apparent distress General Appearance: cooperative, comfortable, well kempt and well developed HEENT normocephalic, head/scalp atraumatic, hearing grossly normal bilaterally, external ears normal, external nose normal and moist oral mucous membranes Neck supple General: normal visual inspection Lymph Lymphatic: no lymphedema noted Chest inspection of chest normal Chest: symmetrical chest wall rise Resp normal respiratory effort, normal air movement, no retractions and no use of accessory muscles Cardio regular rate GI soft to palpation, non-tender and non-distended Narrative: Rouse catheter is draining clear yellow urine. The labial skin has white patches of sclerosis consistent with lichen sclerosis. There is significant vaginal atrophy and likely stenosis but in the examination is difficult secondary to the bed and positioning. Extremity General Extremity: normal exam except as noted Skin no rashes or lesions noted Neuro oriented x3 and CN's II-XII intact bilaterally Lab / Micro Data 02/09/23 05:14 02/11/23 05:11 Labs: Laboratory Results - last 24 hr 02/11/23 05:11: Sodium 139, Potassium 3.8, Chloride 109 H, Carbon Dioxide 26.0, Anion Gap 4 L, BUN 16, Creatinine 0.51 L, Estim Creat Clear Calc 31.35, Est GFR (MDRD) Af Amer 146, Est GFR (MDRD) Non-Af 121, BUN/Creatinine Ratio 31.4 H, Glucose 103, Calcium 8.2 L Micro: Microbiology 02/08/23 18:45 Urine, Catheterized Urine Culture - Final Culture exhibits no growth.
[2023-02-11] MEDS: Tamsulosin HCl 0.4 MG Capsule PO (17:06)
[2023-02-11] MEDS: Clobetasol Propionate 0.05% Cream 1 APPLIC TOPICAL (20:05)
[2023-02-11] MEDS: MELATONIN 10 MG TABLET PO (20:06)
[2023-02-11 20:16] VITALS: BP 134/98; PULSE 97; RESP 20; TEMP 37.4; O2SAT 89
[2023-02-12] MEDS: 0.9% Saline Lock 10 ML Syringe IV (05:36)
[2023-02-12] MEDS: Acetaminophen 500 MG Tablet 1000 MG PO ×3 (05:36→21:04)
[2023-02-12] MEDS: Clobetasol Propionate 0.05% Cream 1 APPLIC TOPICAL ×2 (05:37→21:08)
[2023-02-12 05:44] VITALS: BMI 24.6
[2023-02-12] MEDS: Multivitamin (Healthy Eyes) Capsule 1 CAP PO (09:14)
[2023-02-12] MEDS: Lidocaine 5% Patch 1 PATCH TOPICAL (09:14)
[2023-02-12] MEDS: Heparin Injection (Vial) 5,000 UNIT/ML VIAL 5000 UNIT SC ×2 (09:14→21:06)
[2023-02-12] MEDS: Senna/Docusate Sodium 1 Tablet 2 TABLET PO ×2 (09:15→21:04)
[2023-02-12] MEDS: Potassium Chloride Oral Tablet 20 MEQ PO (09:16)
[2023-02-12] MEDS: Menthol/Lanolin/Calamine/Znox 113 GM Tube 1 APPLIC TOPICAL ×2 (09:19→21:09)
[2023-02-12 10:00] VITALS: BP 135/75; PULSE 80; RESP 16; TEMP 37.3; O2SAT 91
[2023-02-12] MEDS: traMADol 50 MG Tablet PO ×2 (10:06→17:59)
[2023-02-12] MEDS: Tamsulosin HCl 0.4 MG Capsule PO (17:12)
[2023-02-12 19:25] VITALS: BP 139/84; PULSE 89; RESP 18; TEMP 36.9; O2SAT 92
[2023-02-12] MEDS: MELATONIN 10 MG TABLET PO (21:04)
[2023-02-13] MEDS: traMADol 50 MG Tablet PO ×2 (01:35→16:58)
[2023-02-13] MEDS: Clobetasol Propionate 0.05% Cream 1 APPLIC TOPICAL ×2 (05:19→20:30)
[2023-02-13] MEDS: Acetaminophen 500 MG Tablet 1000 MG PO ×3 (05:23→20:30)
[2023-02-13 05:28] VITALS: BMI 25.0
[2023-02-13 07:39] VITALS: BP 119/77; PULSE 60; RESP 15; TEMP 35.8; O2SAT 92
[2023-02-13] MEDS: Senna/Docusate Sodium 1 Tablet 2 TABLET PO ×2 (08:00→20:34)
[2023-02-13] MEDS: Potassium Chloride Oral Tablet 20 MEQ PO (08:00)
[2023-02-13] MEDS: Menthol/Lanolin/Calamine/Znox 113 GM Tube 1 APPLIC TOPICAL ×2 (08:01→20:31)
[2023-02-13] MEDS: Multivitamin (Healthy Eyes) Capsule 1 CAP PO (08:02)
[2023-02-13] MEDS: Lidocaine 5% Patch 1 PATCH TOPICAL (08:03)
[2023-02-13] MEDS: Heparin Injection (Vial) 5,000 UNIT/ML VIAL 5000 UNIT SC ×2 (08:03→20:31)
[2023-02-13] MEDS: Ensure Plus High Protein 120 ML LIQUID PO ×3 (13:52→20:35)
[2023-02-13] MEDS: 0.9% Saline Lock 10 ML Syringe IV (16:57)
[2023-02-13] MEDS: Tamsulosin HCl 0.4 MG Capsule PO (16:57)
[2023-02-13 20:00] VITALS: BP 112/78; PULSE 96; RESP 16; TEMP 36.4; O2SAT 91
[2023-02-13] MEDS: MELATONIN 10 MG TABLET PO (20:31)
[2023-02-14 06:00] VITALS: BMI 24.4
[2023-02-14] MEDS: Acetaminophen 500 MG Tablet 1000 MG PO ×3 (06:58→20:37)
[2023-02-14] MEDS: Clobetasol Propionate 0.05% Cream 1 APPLIC TOPICAL ×2 (06:58→20:37)
[2023-02-14 07:54] VITALS: BP 119/77; PULSE 67; RESP 16; TEMP 36.2; O2SAT 95
[2023-02-14] MEDS: Potassium Chloride Oral Tablet 20 MEQ PO (08:20)
[2023-02-14] MEDS: Heparin Injection (Vial) 5,000 UNIT/ML VIAL 5000 UNIT SC ×2 (08:20→20:39)
[2023-02-14] MEDS: Menthol/Lanolin/Calamine/Znox 113 GM Tube 1 APPLIC TOPICAL ×2 (08:21→20:38)
[2023-02-14] MEDS: Lidocaine 5% Patch 1 PATCH TOPICAL (08:21)
[2023-02-14] MEDS: Senna/Docusate Sodium 1 Tablet 2 TABLET PO ×2 (08:21→20:38)
[2023-02-14] MEDS: Multivitamin (Healthy Eyes) Capsule 1 CAP PO (08:22)
[2023-02-14] MEDS: traMADol 50 MG Tablet PO ×2 (08:39→15:53)
[2023-02-14] MEDS: Ensure Plus High Protein 120 ML LIQUID PO ×4 (10:59→20:40)
[2023-02-14] MEDS: Tamsulosin HCl 0.4 MG Capsule PO (16:50)
[2023-02-14 20:00] VITALS: BP 123/65; PULSE 83; RESP 16; TEMP 36.2; O2SAT 93
[2023-02-14] MEDS: MELATONIN 10 MG TABLET PO (20:37)
[2023-02-15] MEDS: Clobetasol Propionate 0.05% Cream 1 APPLIC TOPICAL ×2 (05:24→19:59)
[2023-02-15] MEDS: Acetaminophen 500 MG Tablet 1000 MG PO ×3 (05:24→19:58)
[2023-02-15 06:00] VITALS: BMI 24.5
[2023-02-15 07:21] VITALS: BP 140/77; PULSE 60; RESP 16; TEMP 36.5; O2SAT 94
--- NOTE | 2023-02-15 07:48 | PN_ITS ---
Subjective Subjective Patient seen, examined. She ate some of her breakfast, she is pleasant today. Cain bag has concentrated urine. She has no new complaints. Objective Data Objective Data Vital Signs: Vital Signs Temp Pulse Resp BP Pulse Ox O2 Del Method O2 Flow Rate 97.7 F L 60 16 140/77 H 94 Room Air 2 02/15/23 07:21 02/15/23 07:21 02/15/23 07:21 02/15/23 07:21 02/15/23 07:21 02/15/23 07:21 02/12/23 22:00 Oxygen Flow Rate (L/min) 2 Oxygen Delivery Method Room Air Weight: 60.8 kg Body Mass Index (BMI) 24.5 Intake & Output: Intake and Output for Last 24 Hours 02/13/23 02/14/23 02/15/23 23:59 23:59 23:59 Intake Total 1660 / 1660 1210 / 1210 60 / 60 Output Total 1750 / 1750 1375 / 1375 400 / 400 Balance -90 / -90 -165 / -165 -340 / -340 Lab / Micro Data 02/09/23 05:14 02/11/23 05:11 Micro: Microbiology 02/08/23 18:45 Urine, Catheterized Urine Culture - Final Culture exhibits no growth. Physical Exam Const alert General Appearance: cooperative HEENT normocephalic Eyes PERRL and EOMs intact bilaterally Neck supple, no JVD and no carotid bruits Resp normal respiratory effort, normal air movement and clear to auscultation bilaterally Cardio regular rate and regular rhythm GI normal to inspection, nondistended, normoactive bowel sounds, non-tender and non-distended Bladder / Kidney Exam: catheter in place urethral Extremity normal capillary refill General Extremity: Negative for edema Skin no rashes or lesions noted General Skin Exam: no breakdown Psych affect normal Appearance: appropriate Assessment & Plan Assessment/Plan (1) Debility: (2) Fall: QUALIFIERS: Encounter type: subsequent encounter Qualified Cod e(s): W19.XXXD - Unspecified fall, subsequent encounter (3) Urine retention: (4) Lichen planus: (5) Mild cognitive impairment: (6) Macular degeneration: (7) Hypokalemia: PLAN: Plan 87 year old female with below past medical history hospitalized for fall, weakness, failure to thrive, admitted to for 3 hours daily rehabilitation, strengthening, prior to disposition determination. * Debility - PT/OT/ST. * Pain - Tylenol 650mg q4 prn, Lidoderm patch 1 patch topical daily. * Bowel - Senna/colace 2 tablets twice daily, MOM 30ml po x 1 prn, Dulcolax 10mg pr x 1 prn. * DVT prophylaxis - Heparin 5,000 units q12h. * Urinary retention - Rx Tamsulosin 0.4mg daily, indwelling cain catheter placed, appreciate Dr. Lovelace, voiding trials when she is moving better. * Lichen planus - Consult Dr. Lovelace. * Skin irritation - Calmoseptine topical bid. * Macular degeneration - Healthy Eyes 1 capsule daily. * Hypokalemia - KCL ER 20meq daily, BMP in 2 days. Capacity Capacity Assessment Tool Can the patient make a choice & communicate that choice?: Yes Can the patient understand benefits, risks and alternatives?: Yes Can the patient make a logical, rational choice?: Yes Is the choice the patient makes consistent w/ their values?: Yes Is there an impending, emergent risk to the patient?: No Does the patient have an Advance Directive?: No Is there a Surrogate Available?: Yes i.e. HCPOA: Yes i.e. close relative (spouse, child, parent, sibling)?: Yes
[2023-02-15] MEDS: Ensure Plus High Protein 120 ML LIQUID PO ×4 (08:28→19:59)
[2023-02-15] MEDS: Potassium Chloride Oral Tablet 20 MEQ PO (08:28)
[2023-02-15] MEDS: Senna/Docusate Sodium 1 Tablet 2 TABLET PO ×2 (08:28→19:58)
[2023-02-15] MEDS: Lidocaine 5% Patch 1 PATCH TOPICAL (08:28)
[2023-02-15] MEDS: Heparin Injection (Vial) 5,000 UNIT/ML VIAL 5000 UNIT SC ×2 (08:28→19:59)
[2023-02-15] MEDS: Multivitamin (Healthy Eyes) Capsule 1 CAP PO (08:29)
[2023-02-15] MEDS: Menthol/Lanolin/Calamine/Znox 113 GM Tube 1 APPLIC TOPICAL ×2 (08:32→20:00)
--- NOTE | 2023-02-15 13:17 | CASEMGMT ---
Social Work Received call from sister requesting meeting with this worker and brother. SW scheduled time for meeting this date. SW met with pt's sister, brother and DHAVAL to answer questions and discuss DC options. SW educated to AL vs SNF LOC, financial liability, referral process and encouraged tours of facilities of interest. SW did discuss DC to SNF skilled then remain LTC or DC to AL. Educated to respite stay at AL. Family did not want to entertain the SENIOR WEB SERVICES DEVELOPER option; they feel pt needs a facility for / care. SW provided printed lists of ALs and SNFs in [facility] via [facility] Guide. Family to tour and discuss options, then notify this worker with choices by 02/[address], in anticipation of DC 02/21. AALIYAH will continue to follow. JAS LeW
[2023-02-15] MEDS: 0.9% Saline Lock 10 ML Syringe IV (16:35)
[2023-02-15] MEDS: Tamsulosin HCl 0.4 MG Capsule PO (16:35)
[2023-02-15 19:55] VITALS: BP 136/83; PULSE 92; RESP 16; TEMP 36.2; O2SAT 90
[2023-02-15] MEDS: MELATONIN 10 MG TABLET PO (19:58)
[2023-02-16] MEDS: Acetaminophen 500 MG Tablet 1000 MG PO ×3 (05:01→20:00)
[2023-02-16] MEDS: Clobetasol Propionate 0.05% Cream 1 APPLIC TOPICAL ×2 (05:01→19:59)
[2023-02-16] MEDS: 0.9% Saline Lock 10 ML Syringe IV (05:10)
[2023-02-16 06:00] VITALS: BMI 24.0
[2023-02-16 07:40] VITALS: BP 140/74; PULSE 77; RESP 16; TEMP 36.7; O2SAT 93
[2023-02-16] MEDS: Lidocaine 5% Patch 1 PATCH TOPICAL (07:57)
[2023-02-16] MEDS: Senna/Docusate Sodium 1 Tablet 2 TABLET PO (07:57)
[2023-02-16] MEDS: Multivitamin (Healthy Eyes) Capsule 1 CAP PO (07:58)
[2023-02-16] MEDS: Potassium Chloride Oral Tablet 20 MEQ PO (07:58)
[2023-02-16] MEDS: Heparin Injection (Vial) 5,000 UNIT/ML VIAL 5000 UNIT SC ×2 (07:58→19:59)
[2023-02-16] MEDS: Ensure Plus High Protein 120 ML LIQUID PO ×4 (07:58→20:01)
[2023-02-16] MEDS: traMADol 50 MG Tablet PO (08:05)
--- NOTE | 2023-02-16 08:28 | PN_ITS ---
Subjective Subjective Patient seen, examined. Indwelling cain remains. Overnight, patient could not settle down, and she has lost 2 pounds, appetite poor. She also had stuffy nose. She has no new complaints for me. Objective Data Objective Data Vital Signs: Vital Signs Temp Pulse Resp BP Pulse Ox O2 Del Method O2 Flow Rate 98.1 F 77 16 140/74 H 93 Room Air 2 02/16/23 07:40 02/16/23 07:40 02/16/23 07:40 02/16/23 07:40 02/16/23 07:40 02/16/23 07:40 02/12/23 22:00 Oxygen Flow Rate (L/min) 2 Oxygen Delivery Method Room Air Weight: 59.7 kg Body Mass Index (BMI) 24.0 Intake & Output: Intake and Output for Last 24 Hours 02/14/23 02/15/23 02/16/23 23:59 23:59 23:59 Intake Total 1210 / 1210 720 / 720 410 / 410 Output Total 1375 / 1375 1925 / 1925 600 / 600 Balance -165 / -165 -1205 / -1205 -190 / -190 Lab / Micro Data 02/09/23 05:14 02/11/23 05:11 Micro: Microbiology 02/08/23 18:45 Urine, Catheterized Urine Culture - Final Culture exhibits no growth. Physical Exam Const alert General Appearance: cooperative HEENT normocephalic Eyes PERRL and EOMs intact bilaterally Neck supple, no JVD and no carotid bruits Resp normal respiratory effort, normal air movement and clear to auscultation bilaterally Cardio regular rate and regular rhythm GI normal to inspection, nondistended, normoactive bowel sounds, non-tender and non-distended Bladder / Kidney Exam: catheter in place urethral Extremity normal capillary refill General Extremity: Negative for edema Skin no rashes or lesions noted General Skin Exam: no breakdown Psych affect normal Appearance: appropriate Assessment & Plan Assessment/Plan (1) Debility: (2) Fall: QUALIFIERS: Encounter type: subsequent encounter Qualified Code(s): W19.XXXD - Unspecified fall, subsequent encounter (3) Urine retention: (4) Lichen planus: (5) Mild cognitive impairment: (6) Macular degeneration: (7) Hypokalemia: PLAN: Plan 87 year old female with below past medical history hospitalized for fall, weakness, failure to thrive, admitted to for 3 hours daily rehabilitation, strengthening, prior to disposition determination. * Debility - PT/OT/ST. * Pain - Tylenol 650mg q4 prn, Lidoderm patch 1 patch topical daily. * Bowel - Senna/colace 2 tablets twice daily, MOM 30ml po x 1 prn, Dulcolax 10mg pr x 1 prn. * DVT prophylaxis - Heparin 5,000 units q12h. * Urinary retention - Rx Tamsulosin 0.4mg daily, indwelling cain catheter placed, appreciate Dr. Lovelace, voiding trials when she is moving better. * Lichen planus - Consult Dr. Lovelace. * Skin irritation - Calmoseptine topical bid. * Macular degeneration - Healthy Eyes 1 capsule daily. * Hypokalemia - KCL ER 20meq daily, BMP in 2 days. * Appetite loss/insomnia - Rx Mirtazapine 7.5mg at bedtime. * Dry nares - Rx [place] nasal spray. Capacity Capacity Assessment Tool Can the patient make a choice & communicate that choice?: Yes Can the patient understand benefits, risks and alternatives?: Yes Can the patient make a logical, rational choice?: Yes Is the choice the patient makes consistent w/ their values?: Yes Is there an impending, emergent risk to the patient?: No Does the patient have an Advance Directive?: No Is there a Surrogate Available?: Yes i.e. HCPOA: Yes i.e. close relative (spouse, child, parent, sibling)?: Yes
--- NOTE | 2023-02-16 13:38 | CASEMGMT ---
Addendum entered by Jud Glasgow 02/16/23 15:55: Sister confirmed SW[facility] is FOC. Sister will be at the Team meeting . SW updated [facility]. Plan: DC 02/21 to [facility], skilled. JAS Le Addendum entered by Jud Glasgow 02/16/23 14:17: [facility] can accept. SW left VM for sister. Will await return call. Original Note: Social Work SW received call from sister requesting referral to [facility]. SW placed referral via [facility]Port. Will await outcome. JAS Le
[2023-02-16] MEDS: Tamsulosin HCl 0.4 MG Capsule PO (17:18)
--- NOTE | 2023-02-16 17:53 | PN.URO_ITS ---
Subjective Subjective Cain remains in place. She would like to have it removed, is anxious about the pain with removal. We discussed that it will be less than it was going in. She is still getting the clobetasol ointment, no complaints. Objective Data Objective Data she is awake, alert, and eating dinner while sitting up in bed. Vital Signs: Vital Signs Temp Pulse Resp BP Pulse Ox O2 Del Method O2 Flow Rate 98.1 F 77 16 140/74 H 93 Room Air 2 02/16/23 07:40 02/16/23 07:40 02/16/23 07:40 02/16/23 07:40 02/16/23 07:40 02/16/23 07:40 02/12/23 22:00 Oxygen Flow Rate (L/min) 2 Oxygen Delivery Method Room Air Weight: 59.7 kg Body Mass Index (BMI) 24.0 Intake & Output: Intake and Output for Last 24 Hours 02/14/23 02/15/23 02/16/23 23:59 23:59 23:59 Intake Total 1210 / 1210 720 / 720 1490 / 1490 Output Total 1375 / 1375 1925 / 1925 1125 / 1125 Balance -165 / -165 -1205 / -1205 365 / 365 Lab / Micro Data Attestation: I reviewed the patient's lab results. 02/09/23 05:14 02/11/23 05:11 Labs: Laboratory Results - last 24 hr 02/09/23 05:14: MANUEL-1 Antibody Not Reportable, SS-A/Ro IgG Antibody Not Reportable, SS-B/La IgG Antibody Not Reportable, Sm (Montero) Antibody Not Rep ortable, CIRCULAR SAW OPERATOR Antibody Not Reportable, Scl-70 Scleroderma Ab Not Reportable, Double Strand DNA Ab Not Reportable, Centromere B Antibody Not Reportable Micro: Microbiology 02/08/23 18:45 Urine, Catheterized Urine Culture - Final Culture exhibits no growth. Physical Exam Const alert, oriented x3 and no apparent distress General Appearance: cooperative, comfortable and well kempt HEENT normocephalic and head/scalp atraumatic Eyes conjunctivae normal General Eye: normal appearance of both eyes Neck supple General: trachea midline Chest inspection of chest normal Resp normal respiratory effort, normal air movement and no retractions Cardio regular rate Narrative: cain draining Skin no rashes or lesions noted Neuro oriented x3 and CN's II-XII intact bilaterally Psych mental status grossly normal Assessment & Plan Assessment/Plan (1) Lichen sclerosus: (2) Incomplete bladder emptying: PLAN: Plan continue clobetasol ointment BID for 6 weeks plan for cain removal this week and bladder scan residuals continue Flomax for now.
[2023-02-16 19:17] VITALS: BP 114/67; PULSE 67; RESP 14; TEMP 36.7; O2SAT 95
[2023-02-16 19:50] VITALS: PULSE 67; RESP 14; O2SAT 95
[2023-02-16] MEDS: MELATONIN 10 MG TABLET PO (20:00)
[2023-02-16] MEDS: Mirtazapine 15 MG Tablet 7.5 MG PO (20:02)
--- NOTE | 2023-02-17 03:19 | NURSING ---
Reviewed and agree with Mahsa GUTIERREZ, documentation and assessment charting.
[2023-02-17 06:00] VITALS: BMI 24.1
[2023-02-17] MEDS: Acetaminophen 500 MG Tablet 1000 MG PO ×3 (06:45→20:30)
[2023-02-17] MEDS: Clobetasol Propionate 0.05% Cream 1 APPLIC TOPICAL ×2 (06:46→20:29)
--- NOTE | 2023-02-17 07:58 | PN_ITS ---
Subjective Subjective Patient seen, examined. She slept well last night with Mirtazapine 7.5mg at bedtime, weight coming up. No new complaints. Objective Data Objective Data Vital Signs: Vital Signs Temp Pulse Resp BP Pulse Ox O2 Del Method O2 Flow Rate 98.0 F 67 14 114/67 95 Room Air 2 02/16/23 19:17 02/16/23 19:50 02/16/23 19:50 02/16/23 19:17 02/16/23 19:50 02/16/23 19:50 02/12/23 22:00 Oxygen Flow Rate (L/min) 2 Oxygen Delivery Method Room Air Weight: 59.9 kg Body Mass Index (BMI) 24.1 Intake & Output: Intake and Output for Last 24 Hours 02/15/23 02/16/23 02/17/23 23:59 23:59 23:59 Intake Total 720 / 720 1490 / 1610 320 / 320 Output Total 1925 / 1925 1125 / 1650 1075 / 1075 Balance -1205 / -1205 365 / -40 -755 / -755 Lab / Micro Data Attestation: I reviewed the patient's lab results. 02/09/23 05:14 02/11/23 05:11 Labs: Laboratory Results - last 24 hr 02/09/23 05:14: MANUEL-1 Antibody Not Reportable, SS-A/Ro IgG Antibody Not Reportable, SS-B/La IgG Antibody Not Reportable, Sm (Montero) Antibody Not Reportable, OVERHEAD DISTRIBUTION ENGINEER Antibody Not Reportable, Scl-70 Scleroderma Ab Not Reportable, Double Strand DNA Ab Not Reportable, Centromere B Antibody Not Reportable Micro: Microbiology 02/08/23 18:45 Urine, Catheterized Urine Culture - Final Culture exhibits no growth. Physical Exam Const alert General Appearance: cooperative HEENT normocephalic Eyes PERRL and EOMs intact bilaterally Neck supple, no JVD and no carotid bruits Resp normal respiratory effort, normal air movement and clear to auscultation carmela aterally Cardio regular rate and regular rhythm GI normal to inspection, nondistended, normoactive bowel sounds, non-tender and non-distended Bladder / Kidney Exam: catheter in place urethral Extremity normal capillary refill General Extremity: Negative for edema Skin no rashes or lesions noted General Skin Exam: no breakdown Psych affect normal Appearance: appropriate Assessment & Plan Assessment/Plan (1) Debility: (2) Fall: QUALIFIERS: Encounter type: subsequent encounter Qualified Code(s): W19.XXXD - Unspecified fall, subsequent encounter (3) Urine retention: (4) Lichen planus: (5) Mild cognitive impairment: (6) Macular degeneration: (7) Hypokalemia: PLAN: Plan 87 year old female with below past medical history hospitalized for fall, weakness, failure to thrive, admitted to for 3 hours daily rehabilitation, strengthening, prior to disposition determination. * Debility - PT/OT/ST. * Pain - Tylenol 650mg q4 prn, Lidoderm patch 1 patch topical daily. * Bowel - Senna/colace 2 tablets twice daily, MOM 30ml po x 1 prn, Dulcolax 10mg pr x 1 prn. * DVT prophylaxis - Heparin 5,000 units q12h. * Urinary retention - Tamsulosin 0.4mg daily, indwelling cain catheter placed, appreciate Dr. Lovelace, voiding trials when she is moving better. * Lichen planus - Consult Dr. Lovelace. * Skin irritation - Calmoseptine topical bid. * Macular degeneration - Healthy Eyes 1 capsule daily. * Hypokalemia - KCL ER 20meq daily, BMP in 2 days. * Appetite loss/insomnia - Mirtazapine 7.5mg at bedtime, weight coming up. * Dry nares - Rx [place] nasal spray. Capacity Capacity Assessment Tool Can the patient make a choice & communicate that choice?: Yes Can the patient understand benefits, risks and alternatives?: Yes Can the patient make a logical, rational choice?: Yes Is the choice the patient makes consistent w/ their values?: Yes Is there an impending, emergent risk to the patient?: No Does the patient have an Advance Directive?: No Is there a Surrogate Available?: Yes i.e. HCPOA: Yes i.e. close relative (spouse, child, parent, sibling)?: Yes
[2023-02-17 08:04] VITALS: BP 112/62; PULSE 62; RESP 16; TEMP 36.6; O2SAT 96
[2023-02-17] MEDS: Lidocaine 5% Patch 1 PATCH TOPICAL (08:25)
[2023-02-17] MEDS: Potassium Chloride Oral Tablet 20 MEQ PO (08:25)
[2023-02-17] MEDS: Multivitamin (Healthy Eyes) Capsule 1 CAP PO (08:25)
[2023-02-17] MEDS: Heparin Injection (Vial) 5,000 UNIT/ML VIAL 5000 UNIT SC ×2 (08:30→20:31)
[2023-02-17] MEDS: Ensure Plus High Protein 120 ML LIQUID PO ×4 (08:30→20:31)
[2023-02-17] MEDS: Menthol/Lanolin/Calamine/Znox 113 GM Tube 1 APPLIC TOPICAL ×2 (08:31→20:32)
[2023-02-17] MEDS: Tamsulosin HCl 0.4 MG Capsule PO (17:09)
[2023-02-17 19:23] VITALS: BP 157/80; PULSE 94; RESP 17; TEMP 37.2; O2SAT 92
[2023-02-17] MEDS: Senna/Docusate Sodium 1 Tablet 2 TABLET PO (20:30)
[2023-02-17] MEDS: Mirtazapine 15 MG Tablet 7.5 MG PO (20:32)
[2023-02-17] MEDS: MELATONIN 10 MG TABLET PO (20:32)
[2023-02-17 20:47] VITALS: PULSE 110; O2SAT 88
[2023-02-18] MEDS: Clobetasol Propionate 0.05% Cream 1 APPLIC TOPICAL ×2 (05:53→20:59)
[2023-02-18] MEDS: Acetaminophen 500 MG Tablet 1000 MG PO ×3 (05:53→20:58)
[2023-02-18 06:00] VITALS: BMI 24.5
[2023-02-18 07:57] VITALS: BP 126/74; PULSE 97; RESP 16; TEMP 36.7; O2SAT 95
--- NOTE | 2023-02-18 08:20 | CASEMGMT ---
Addendum entered by Jud Glasgow 02/19/23 09:06: 7000 completed and DC paperwork sent to [facility] via [facility]Port. Addendum entered by Jud Glasgow 02/18/23 11:35: SW scheduled w/c transport through [facility] for 1000. 7000 started. Original Note: Social Work IDT met with patient and sister for Team meeting. Discussed patient's progress in PT/OT/ST/SN. Confirmed DC 02/21 to [facility], skilled. Recommending w/c transport as pt is unable to complete a car tx. Sister agreed. SW to schedule transport at [place]. Plan: DC 02/21 to [facility], skilled. JAS LeW
[2023-02-18] MEDS: Potassium Chloride Oral Tablet 20 MEQ PO (08:34)
[2023-02-18] MEDS: Multivitamin (Healthy Eyes) Capsule 1 CAP PO (08:34)
[2023-02-18] MEDS: Senna/Docusate Sodium 1 Tablet 2 TABLET PO ×2 (08:35→20:58)
[2023-02-18] MEDS: Heparin Injection (Vial) 5,000 UNIT/ML VIAL 5000 UNIT SC ×2 (08:36→20:59)
[2023-02-18] MEDS: Lidocaine 5% Patch 1 PATCH TOPICAL (08:36)
[2023-02-18] MEDS: Ensure Plus High Protein 120 ML LIQUID PO ×4 (08:40→20:58)
[2023-02-18] MEDS: Menthol/Lanolin/Calamine/Znox 113 GM Tube 1 APPLIC TOPICAL ×2 (08:45→20:58)
[2023-02-18 10:00] VITALS: BP 126/74; PULSE 97; RESP 16; TEMP 36.7; O2SAT 95
[2023-02-18] MEDS: Tamsulosin HCl 0.4 MG Capsule PO (17:28)
--- NOTE | 2023-02-18 19:13 | DS.PCM_ITS ---
Providers Date of Admission: 02/08/23 Primary Care Physician: Caprice Primary Care Phys Consultations 02/09/23 08:31 Consult: Urology Routine Consulting Provider: Fay Lovelace Reason for Consult: retention, vaginal redness and swelling EMERGENT Consult: No MD Notified: Yes Date Notified: 02/09/23 Time Notified: 08:32 Method of Notification: Verbal Reason For Visit: DEBILITY Diagnosis Discharge Diagnosis (1) Debility: Status: Acute Code(s): R53.81 - Other malaise (2) Fall: Status: Inactive Code(s): W19.XXXA - Unspecified fall, initial encounter Qualifiers: Encounter type: subsequent encounter Qualified Code(s): W19.XXXD - Unspecified fall, subsequent encounter (3) Urine retention: Status: Acute Code(s): R33.9 - Retention of urine, unspecified (4) Lichen planus: Status: Acute Code(s): L43.9 - Lichen planus, unspecified (5) Mild cognitive impairment: Status: Acute Code(s): G31.84 - Mild cognitive impairment of uncertain or unknown etiology (6) Macular degeneration: Status: Acute Code(s): H35.30 - Unspecified macular degeneration (7) Hypokalemia: Status: Acute Code(s): E87.6 - Hypokalemia Plan 87 year old female with below past medical history hospitalized for fall, weakness, failure to thrive, admitted to for 3 hours daily rehabilitation, strengthening, prior to disposition determination. * Debility - PT/OT/ST. * Pain - Tylenol 650mg q4 prn, Lidoderm patch 1 patch topical daily. * Bowel - Senna/colace 2 tablets twice daily, MOM 30ml po x 1 prn, Dulcolax 10mg pr x 1 prn. * DVT prophylaxis - Heparin 5,000 units q12h. * Urinary retention - Tamsulosin 0.4mg daily, indwelling cain catheter placed, appreciate Dr. Lovelace, voiding trials when she is moving better. * Lichen planus - Consult Dr. Lovelace. * Skin irritation - Calmoseptine topical bid. * Macular degeneration - Healthy Eyes 1 capsule daily. * Hypokalemia - KCL ER 20meq daily, BMP in 2 days. * Appetite loss/insomnia - Mirtazapine 7.5mg at bedtime, weight coming up. * Dry nares - Rx [place] nasal spray. Medications at Discharge Home Medications vitamins A,C,T-dhbx-zdbbth 4,296 mcg-226 mg-90 mg capsule (PreserVision AREDS) 2 tab PO DAILY eyes 09/08/18 lidocaine 5 % topical patch 1 patch topical DAILY pain #0 ea 02/08/23 menthol 0.44 %-zinc oxide 20.6 % topical ointment (Calmoseptine) 1 applic topical 4X/DAY Skin protection #0 grams 02/08/23 acetaminophen 500 mg tablet 1,000 mg (2 x 500 mg) PO Q8 #0 tabs 02/18/23 clobetasol 0.05 % topical cream 1 applic topical 0600,2200 #0 grams 02/18/23 food supplemt, lactose-reduced 0.08 gram-1.5 kcal/mL oral liquid (Ensure Plus High Protein) 120 ml PO 4X/DAY #0 mL 02/18/23 melatonin 10 mg sublingual tablet 10 mg PO QHS #0 tabs 02/18/23 mirtazapine 15 mg tablet 7.5 mg (1/2 x 15 mg) PO QHS #0 tabs 02/18/23 potassium chloride 20 mEq tablet,extended release(part/cryst) (Klor-Con M) 20 meq PO DAILYCM #0 tabs 02/18/23 sennosides 8.6 mg-docusate sodium 50 mg tablet (Stool Softener-Stimulant Laxative) 2 tab PO BID #0 tabs 02/18/23 sodium chloride 0.65 % nasal spray aerosol (Deep Sea Nasal) 2 spray NASAL TID PRN PRN NASAL DRYNESS #0 mL 02/18/23 tamsulosin 0.4 mg capsule 0.4 mg PO DAILY@1730 #0 caps 02/18/23 Hospital Course Operations None Procedures None Summary of Care Provided Minutes Spent on Discharge: 35 Hospital Course: 87 year old female with below past medical history hospitalized for failure to thrive, admitted to for 3 hours daily rehabilitation, strengthening, prior to disposition determination. Patient had urinary retention requiring cain catheter placement, Dr. Lovelace consulted, cain removed 02/18/2023. Patient has lichen planus of vulva, treat with clobetasol cream, recommend f/u Dr. Lovelace. Patient is vision impaired. Discharge to [facility] 02/21/2029, Skilled. Physical Exam Const alert General Appearance: cooperative HEENT normocephalic Eyes PERRL and EOMs intact bilaterally Neck supple, no JVD and no carotid bruits Resp normal respiratory effort, normal air movement and clear to auscultation bilaterally Cardio regular rate and regular rhythm GI normal to inspection, nondistended, normoactive bowel sounds, non-tender and non-distended Extremity normal capillary refill General Extremity: Negative for edema Skin no rashes or lesions noted General Skin Exam: no breakdown Psych affect normal Appearance: appropriate Weight / BMI Weight Weight: 60.9 kg Body Mass Index (BMI) 24.5 ABG / Lab / Microbiology Data 02/09/23 05:14 02/11/23 05:11 Microbiology: Microbiology 02/08/23 18:45 Urine, Catheterized Urine Culture - Final Culture exhibits no growth. Indicators for Scoring Admitted with or Primary Diagnosis of CVA/Stroke: No Hx of CVA/Stroke: No Modified Pierce Score MRS Score at time of Evaluation: 4-Moderate/severe disability D/C Instructions Discharge Diet: No restrictions Discharge Activity: Return to Normal Activity, May Shower and Use Walker Weight Bearing Status: Weight bearing as tolerated Call your doctor if you observe: Fever of 101 or Higher, Inability to urinate, Inability to have a bowel movement, Shortness of breath, Dizziness, Fainting spells, Swelling in the ankles, Chest pain and Uncontrolled pain Additional Instructions: Discharge to [facility] 02/21/2029, Skilled. Please Follow Up With: Fay Lovelace MD When: 6 weeks. Meaningful Use Info Meaningful Use Diagnoses (Choose all that apply): None applicable Discharge Plan Admission Admit Date/Time: 02/08/23 16:40 Primary Reason for Your Visit: Debility. Attending Provider: Tanya Shen Primary Care Provider: Care Physician,No Primary Consulting Providers: Fay Lovelace Instructions Additional Instructions / Restrictions: Discharge to [facility] 02/21/2029, Skilled. Discharge Orders/Prescriptions Prescriptions: New sennosides-docusate sodium [Stool Softener-Stimulant Laxat] 8.6-50 mg Tablet 2 tab PO BID Qty: 0 0RF clobetasol 0.05 % Cream 1 applic topical 0600,2200 Qty: 0 0RF Protocol: *Topical Application Instructions APPLICATION INSTRUCTIONS: vagina acetaminophen 500 mg Tablet 1,000 mg PO Q8 Qty: 0 0RF potassium chloride [Klor-Con M20] 20 mEq Tablet,Er Particles/Crystals 20 meq PO DAILYCM Qty: 0 0RF tamsulosin 0.4 mg Capsule 0.4 mg PO DAILY@1730 Qty: 0 0RF mirtazapine 15 mg Tablet 7.5 mg PO QHS Qty: 0 0RF [place] Nasal 0.65 % Aerosol,[place] 2 spray NASAL TID PRN PRN (Reason: NASAL DRYNESS) Qty: 0 0RF melatonin 10 mg Tablet, Sublingual 10 mg PO QHS Qty: 0 0RF Ensure Plus High Protein 0.08 gram-1.5 kcal/mL Liquid 120 ml PO 4X/DAY Qty: 0 0RF Continued PreserVision AREDS 1 EACH capsule 2 tab PO DAILY lidocaine 5 % Adhesive Patch,Medicated 1 patch topical DAILY Qty: 0 0RF Protocol: *Topical Application Instructions APPLICATION INSTRUCTIONS: to affected region menthol-zinc oxide [Calmoseptine] 0.44-20.6 % Ointment 1 applic topical 4X/DAY Qty: 0 0RF Protocol: *Topical Application Instructions APPLICATION INSTRUCTIONS: apply to affected region Discontinued acetaminophen 325 mg Tablet 650 mg PO Q4H PRN PRN (Reason: Fever, pain 1-10/10) Qty: 0 0RF Referrals / Follow Up: Care Physician,No Primary [Primary Care Provider] - Disposition Disposition (needs filled in before D/C Order can be placed): [facility] Facility
--- NOTE | 2023-02-18 19:20 | TREXTCAR_ITS ---
Diet Diet Order/Speech Therapy: 02/08/23 17:14 Diet: Regular - General Routine Orders/Code Status Code Status: Full Code Wound(s) chin: Wound Type: Abrasion genitals: Wound Type: scratches Therapies Weight Bearing: Weight bearing as tolerated Extremity Affected:: Bilateral Lower Physical Therapy: Eval and Treat Occupational Therapy: Eval and Treat Speech Therapy: Eval and Treat Problem/Diagnosis (1) Debility: Status: Acute Code(s): R53.81 - Other malaise (2) Fall: Status: Inactive Code(s): W19.XXXA - Unspecified fall, initial encounter (3) Urine retention: Status: Acute Code(s): R33.9 - Retention of urine, unspecified (4) Lichen planus: Status: Acute Code(s): L43.9 - Lichen planus, unspecified (5) Mild cognitive impairment: Status: Acute Code(s): G31.84 - Mild cognitive impairment of uncertain or unknown etiology (6) Macular degeneration: Status: Acute Code(s): H35.30 - Unspecified macular degeneration (7) Hypokalemia: Status: Acute Code(s): E87.6 - Hypokalemia Plan 87 year old female with below past medical history hospitalized for fall, weakness, failure to thrive, admitted to for 3 hours daily rehabilitation, strengthening, prior to disposition determination. * Debility - PT/OT/ST. * Pain - Tylenol 650mg q4 prn, Lidoderm patch 1 patch topical daily. * Bowel - Senna/colace 2 tablets twice daily, MOM 30ml po x 1 prn, Dulcolax 10mg pr x 1 prn. * DVT prophylaxis - Heparin 5,000 units q12h. * Urinary retention - Tamsulosin 0.4mg daily, indwelling cain catheter placed, appreciate Dr. Lovelace, voiding trials when she is moving better. * Lichen planus - Consult Dr. Lovelace. * Skin irritation - Calmoseptine topical bid. * Macular degeneration - Healthy Eyes 1 capsule daily. * Hypokalemia - KCL ER 20meq daily, BMP in 2 days. * Appetite loss/insomnia - Mirtazapine 7.5mg at bedtime, weight coming up. * Dry nares - Rx [place] nasal spray. Allergies/Procedures Done in Hospital Allergies latex Adverse Reaction (Verified 11/26/20 20:17) Other Procedures: None Type of Care/Length of Stay Estimated LOS: Convalescent Care Less Than 30 days Type of Care Needed: Skilled Rehab Potential: Fair Prognosis: Fair Additional Orders/Day of Discharge Day of Discharge: 02/21/23 Dietary and Speech Recommendations Dietitian Recommendations/Changes: Continue regular diet as ordered. Will add 120mL ensure plus high protein 4 times per day w/ medpass as tolerated to supplement variable PO at meals. Follow Up Care Please Follow Up With: Fay Lovelace MD Discharge Plan Admission Admit Date/Time: 02/08/23 16:40 Primary Reason for Your Visit: Debility. Attending Provider: Tanya Shen Primary Care Provider: Care Physician,No Primary Consulting Providers: Fay Lovelace Instructions Additional Instructions / Restrictions: Discharge to [facility] 02/21/2029, Skilled. Discharge Orders/Prescriptions Prescriptions: New sennosides-docusate sodium [Stool Softener-Stimulant Laxat] 8.6-50 mg Tablet 2 tab PO BID Qty: 0 0RF clobetasol 0.05 % Cream 1 applic topical 0600,2200 Qty: 0 0RF Protocol: *Topical Application Instructions APPLICATION INSTRUCTIONS: vagina acetaminophen 500 mg Tablet 1,000 mg PO Q8 Qty: 0 0RF potassium chloride [Klor-Con M20] 20 mEq Tablet,Er Particles/Crystals 20 meq PO DAILYCM Qty: 0 0RF tamsulosin 0.4 mg Capsule 0.4 mg PO DAILY@1730 Qty: 0 0RF mirtazapine 15 mg Tablet 7.5 mg PO QHS Qty: 0 0RF [place] Nasal 0.65 % Aerosol,[place] 2 spray NASAL TID PRN PRN (Reason: NASAL DRYNESS) Qty: 0 0RF melatonin 10 mg Tablet, Sublingual 10 mg PO QHS Qty: 0 0RF Ensure Plus High Protein 0.08 gram-1.5 kcal/mL Liquid 120 ml PO 4X/DAY Qty: 0 0RF Continued PreserVision AREDS 1 EACH capsule 2 tab PO DAILY lidocaine 5 % Adhesive Patch,Medicated 1 patch topical DAILY Qty: 0 0RF Protocol: *Topical Application Instructions APPLICATION INSTRUCTIONS: to affected region menthol-zinc oxide [Calmoseptine] 0.44-20.6 % Ointment 1 applic topical 4X/DAY Qty: 0 0RF Protocol: *Topical Application Instructions APPLICATION INSTRUCTIONS: apply to affected region Discontinued acetaminophen 325 mg Tablet 650 mg PO Q4H PRN PRN (Reason: Fever, pain 1-01/12) Qty: 0 0RF Referrals / Follow Up: Care Physician,No Primary [Primary Care Provider] - Disposition Disposition (needs filled in before D/C Order can be placed): Intermediate Facility (2) Fall Qualifiers: Encounter type: subsequent encounter Qualified Code(s): W19.XXXD - Unspecified fall, subsequent encounter
[2023-02-18 19:33] VITALS: BP 130/87; PULSE 87; RESP 20; TEMP 37.2; O2SAT 91
[2023-02-18] MEDS: MELATONIN 10 MG TABLET PO (20:59)
[2023-02-18] MEDS: Mirtazapine 15 MG Tablet 7.5 MG PO (20:59)
[2023-02-19] MEDS: Clobetasol Propionate 0.05% Cream 1 APPLIC TOPICAL ×2 (05:48→21:35)
[2023-02-19] MEDS: Acetaminophen 500 MG Tablet 1000 MG PO ×3 (05:48→21:34)
[2023-02-19 06:00] VITALS: BMI 24.6
[2023-02-19 07:22] VITALS: BP 129/76; PULSE 58; RESP 16; TEMP 36.6; O2SAT 94
[2023-02-19] MEDS: Potassium Chloride Oral Tablet 20 MEQ PO (07:50)
[2023-02-19] MEDS: Senna/Docusate Sodium 1 Tablet 2 TABLET PO ×2 (07:50→21:34)
[2023-02-19] MEDS: Multivitamin (Healthy Eyes) Capsule 1 CAP PO (07:50)
[2023-02-19] MEDS: Lidocaine 5% Patch 1 PATCH TOPICAL (07:50)
[2023-02-19] MEDS: Heparin Injection (Vial) 5,000 UNIT/ML VIAL 5000 UNIT SC ×2 (07:51→21:35)
[2023-02-19] MEDS: Menthol/Lanolin/Calamine/Znox 113 GM Tube 1 APPLIC TOPICAL ×2 (07:51→21:35)
[2023-02-19] MEDS: Ensure Plus High Protein 120 ML LIQUID PO ×4 (07:56→21:34)
--- NOTE | 2023-02-19 11:17 | PCM.PN.GU ---
Subjective Subjective Patient is sleeping in her bedside chair. Her postvoid residuals have been less than 50 cc. Objective Data Objective Data Vital Signs: Vital Signs Temp Pulse Resp BP Pulse Ox O2 Del Method O2 Flow Rate 97.8 F 58 L 16 129/76 H 94 Room Air 2 02/19/23 07:22 02/19/23 07:22 02/19/23 07:22 02/19/23 07:22 02/19/23 07:22 02/19/23 07:22 02/18/23 07:57 Oxygen Flow Rate (L/min) 2 Oxygen Delivery Method Room Air Weight: 61.2 kg Body Mass Index (BMI) 24.6 Intake & Output: Intake and Output for Last 24 Hours 02/17/23 02/18/23 02/19/23 23:59 23:59 23:59 Intake Total 1160 / 1220 2180 / 2180 240 / 240 Output Total 2475 / 2475 900 / 900 Balance -1315 / -1255 1280 / 1280 240 / 240 Lab / Micro Data Attestation: I reviewed the patient's lab results. 02/09/23 05:14 02/11/23 05:11 Micro: Microbiology 02/08/23 18:45 Urine, Catheterized Urine Culture - Final Culture exhibits no growth. Physical Exam Narrative Patient is comfortably sleeping, normal movement of air, no obvious skin abnormalities. Assessment & Plan Assessment/Plan (1) Lichen sclerosus: (2) Incomplete bladder emptying: PLAN: Plan Continue without Rouse catheter Continue clobetasol twice daily for at least 6 weeks Okay to stop Flomax from my standpoint Please call with questions or concerns
[2023-02-19] MEDS: Tamsulosin HCl 0.4 MG Capsule PO (16:28)
[2023-02-19] MEDS: Mirtazapine 15 MG Tablet 7.5 MG PO (21:33)
[2023-02-19] MEDS: MELATONIN 10 MG TABLET PO (21:34)
[2023-02-19] MEDS: traMADol 50 MG Tablet PO (21:35)
[2023-02-19 22:00] VITALS: BP 150/88; PULSE 95; RESP 15; TEMP 36.8; O2SAT 93
[2023-02-20] MEDS: Clobetasol Propionate 0.05% Cream 1 APPLIC TOPICAL ×2 (04:33→20:17)
[2023-02-20] MEDS: Acetaminophen 500 MG Tablet 1000 MG PO ×3 (04:33→20:18)
[2023-02-20 06:00] VITALS: BMI 24.3
[2023-02-20 07:55] VITALS: BP 130/69; PULSE 75; RESP 16; TEMP 36.9; O2SAT 93
[2023-02-20] MEDS: Ensure Plus High Protein 120 ML LIQUID PO ×4 (09:34→20:17)
[2023-02-20] MEDS: Potassium Chloride Oral Tablet 20 MEQ PO (09:34)
[2023-02-20] MEDS: Multivitamin (Healthy Eyes) Capsule 1 CAP PO (09:34)
[2023-02-20] MEDS: Menthol/Lanolin/Calamine/Znox 113 GM Tube 1 APPLIC TOPICAL ×2 (09:34→20:16)
[2023-02-20] MEDS: Lidocaine 5% Patch 1 PATCH TOPICAL (09:35)
[2023-02-20] MEDS: Heparin Injection (Vial) 5,000 UNIT/ML VIAL 5000 UNIT SC ×2 (09:35→20:15)
[2023-02-20] MEDS: Senna/Docusate Sodium 1 Tablet 2 TABLET PO (09:35)
[2023-02-20] MEDS: Tamsulosin HCl 0.4 MG Capsule PO (18:10)
[2023-02-20] MEDS: 0.9% Saline Lock 10 ML Syringe IV (18:46)
[2023-02-20 20:00] VITALS: O2SAT 97
[2023-02-20] MEDS: Mirtazapine 15 MG Tablet 7.5 MG PO (20:15)
[2023-02-20] MEDS: MELATONIN 10 MG TABLET PO (20:15)
[2023-02-20 22:00] VITALS: BP 155/97; PULSE 88; RESP 16; TEMP 37.2; O2SAT 97
[2023-02-21 03:21] VITALS: BMI 24.1
[2023-02-21] MEDS: Clobetasol Propionate 0.05% Cream 1 APPLIC TOPICAL (05:27)
[2023-02-21] MEDS: Acetaminophen 500 MG Tablet 1000 MG PO (05:27)
[2023-02-21 07:17] VITALS: BP 141/82; PULSE 98; RESP 20; TEMP 36.8; O2SAT 94
[2023-02-21] MEDS: Lidocaine 5% Patch 1 PATCH TOPICAL (08:06)
[2023-02-21] MEDS: Menthol/Lanolin/Calamine/Znox 113 GM Tube 1 APPLIC TOPICAL (08:07)
[2023-02-21] MEDS: Heparin Injection (Vial) 5,000 UNIT/ML VIAL 5000 UNIT SC (08:07)
[2023-02-21] MEDS: Potassium Chloride Oral Tablet 20 MEQ PO (08:08)
[2023-02-21] MEDS: Senna/Docusate Sodium 1 Tablet 2 TABLET PO (08:08)
[2023-02-21] MEDS: Multivitamin (Healthy Eyes) Capsule 1 CAP PO (08:08)
== END 2023-02-21 11:18 | disposition skilled nursing facility (03) | DRG 950 ==
PROVIDERS: Family Medicine Geriatric Medicine; Admitting Provider Internal Medicine; Visit Provider Internal Medicine
DX: S20.211D Contusion of right front wall of thorax, subsequent encounter (principal); E87.6 Hypokalemia; F03.90 Unspecified dementia, unspecified severity, without behavioral disturbance, psychotic disturbance, mood disturbance, and anxiety; H35.30 Unspecified macular degeneration; W19.XXXD Unspecified fall, subsequent encounter; L43.9 Lichen planus, unspecified; S90.31XD Contusion of right foot, subsequent encounter; N89.5 Stricture and atresia of vagina; G47.00 Insomnia, unspecified; Z87.891 Personal history of nicotine dependence; R33.9 Retention of urine, unspecified
CPT/HCPCS: 36415; 71250; 80048; 80053; 81001; 82550; 82607; 83735; 84100; 84443; 84484; 85025; 85027; 86038; 86225; 86235; 87086; 92507; 92523; 93005; 93306; 94668; 96360; 96361; 96372; 97110; 97112; 97116; 97129; 97130; 97162; 97166; 97530; 97535; 97802; 99221; 99285; J7030; A4216; G0378

== ENCOUNTER → 2023-03-22 | Outpatient (REF) | payer MEDICARE, BC, SELFPAY ==
[2023-03-22 09:42] LABS: Anion Gap 6 (5-15); BUN 12 mg/dL (7-18); BUN/Creat Ratio 24.1 RATIO (10-20); Calcium,Total 8.3 mg/dL (8.5-10.1); Chloride 111 mmol/L (98-107); EST Glomerular Filtration Rate 124 mL/min (>60); Est Glom Filt Rate - Afr Amer 150 mL/min (>60); Glucose 94 mg/dL (74-106); Potassium 3.5 mmol/L (3.5-5.1); Sodium Level 141 mmol/L (136-145)
== END ==
LOC: OLS.SW 04:00
PROVIDERS: Referring Provider Internal Medicine; Visit Provider Internal Medicine
DX: E87.6 Hypokalemia (principal)
CPT/HCPCS: 36415; 80048

== ENCOUNTER → 2023-04-15 | Outpatient (REF) | payer SELFPAY ==
[2023-04-15 09:27] LABS: Absolute Lymphocyte Count 1.08 X10^3/uL (0.83-4.51); Absolute Neutrophil Count 4.5 X10^3/uL (2.0-7.7); Basophil# 0.01 X10^3/uL; Basophil% 0.2 % (0-1); Eosinophil# 0.02 X10^3/uL; Eosinophils% 0.3 % (0-5); Hematocrit 39.4 % (37-47); Hemoglobin 13.1 g/dL (12.0-15.0); Lymphocyte # 1.08 X10^3/ul (0.83-4.51); Mean Corp Hgb Conc 33.2 g/dL (32-36); Mean Corpuscular Volume 93.4 fL (81-99); Mean Platelet Vol. 10.6 fl (6.2-12.0); Monocyte# 0.75 X10^3/uL; Monocyte% 11.8 % (0-10); NRBC Flagged by Analyzer 0 % (0-5); Neutrophil # 4.45 X10^3/uL (2.7-7.7); Neutrophil % 70.1 % (47-70); Platelet Count 325 K/mm3 (150-450); RBC Distribution Width CV 13.4 % (11.6-14.6); RBC Distribution Width SD 45.8 fl (35.1-43.9); Red Blood Count 4.22 M/mm3 (4.2-5.4); White Blood Count 6.4 K/mm3 (4.4-11.0)
[2023-04-15 10:03] LABS: ALB/GLOB Ratio 0.4 RATIO (0.9-2.4); AST(SGOT) 16 U/L (15-37); Alanine Aminotransfer ALT/SGPT 11 U/L (13-56); Albumin, Serum 2.3 g/dL (3.2-5.0); Alkaline Phosphatase 80 U/L (45-117); Anion Gap 9 (5-15); BUN 21 mg/dL (7-18); BUN/Creat Ratio 34.8 RATIO (10-20); Calcium,Total 8.9 mg/dL (8.5-10.1); Chloride 105 mmol/L (98-107); EST Glomerular Filtration Rate 100 mL/min (>60); Est Glom Filt Rate - Afr Amer 120 mL/min (>60); Globulin 5.2 g/dL (2.2-4.2); Glucose 83 mg/dL (74-106); Potassium 3.7 mmol/L (3.5-5.1); Protein, Total 7.5 g/dL (6.4-8.2); Sodium Level 138 mmol/L (136-145)
== END ==
LOC: OLS.SW 05:00
PROVIDERS: Visit Provider Internal Medicine
DX: E87.6 Hypokalemia (principal); R62.7 Adult failure to thrive
CPT/HCPCS: 36415; 80053; 85025

== ENCOUNTER → 2023-07-12 | Outpatient (REF) | payer MEDICARE, BC, SELFPAY ==
[2023-07-12 08:53] LABS: BNP,B-Type NATRIURETIC PEPTIDE 120.6 pg/mL (0-100)
== END ==
LOC: OLS.SW 05:00
PROVIDERS: Visit Provider Internal Medicine
DX: R60.9 Edema, unspecified (principal)
CPT/HCPCS: 36415; 83880

== ENCOUNTER → 2023-08-18 | Outpatient (REF) | payer MEDICARE, BC, SELFPAY ==
[2023-08-18 07:07] LABS: Absolute Lymphocyte Count 2.38 X10^3/uL (0.83-4.51); Absolute Neutrophil Count 3.9 X10^3/uL (2.0-7.7); Basophil# 0.04 X10^3/uL; Basophil% 0.6 % (0-1); Eosinophil# 0.23 X10^3/uL; Eosinophils% 3.2 % (0-5); Hematocrit 38.5 % (37-47); Hemoglobin 12.5 g/dL (12.0-15.0); Lymphocyte # 2.38 X10^3/ul (0.83-4.51); Lymphocyte % 32.7 % (19-41); Mean Corp Hgb Conc 32.5 g/dL (32-36); Mean Corpuscular Hgb 31.2 pg (27.0-32.0); Mean Platelet Vol. 10.1 fl (6.2-12.0); Monocyte# 0.73 X10^3/uL; NRBC Flagged by Analyzer 0 % (0-5); Neutrophil # 3.87 X10^3/uL (2.7-7.7); Neutrophil % 53.2 % (47-70); Platelet Count 267 K/mm3 (150-450); RBC Distribution Width CV 13.2 % (11.6-14.6); RBC Distribution Width SD 46.9 fl (35.1-43.9); Red Blood Count 4.01 M/mm3 (4.2-5.4); White Blood Count 7.3 K/mm3 (4.4-11.0)
[2023-08-18 07:46] LABS: ALB/GLOB Ratio 0.7 RATIO (0.9-2.4); AST(SGOT) 20 U/L (15-37); Alanine Aminotransfer ALT/SGPT 18 U/L (13-56); Albumin, Serum 2.7 g/dL (3.2-5.0); Alkaline Phosphatase 77 U/L (45-117); Anion Gap 3 (5-15); BUN 17 mg/dL (7-18); BUN/Creat Ratio 34.5 RATIO (10-20); Calcium,Total 8.4 mg/dL (8.5-10.1); Chloride 111 mmol/L (98-107); Creatinine, Serum 0.49 mg/dL (0.55-1.02); EST Glomerular Filtration Rate 126 mL/min (>60); Est Glom Filt Rate - Afr Amer 152 mL/min (>60); Globulin 4.1 g/dL (2.2-4.2); Glucose 88 mg/dL (74-106); Magnesium 2.1 mg/dL (1.6-2.6); Potassium 3.3 mmol/L (3.5-5.1); Protein, Total 6.8 g/dL (6.4-8.2); Sodium Level 139 mmol/L (136-145)
== END ==
LOC: OLS.SW 05:00
PROVIDERS: Visit Provider Internal Medicine
DX: R62.7 Adult failure to thrive (principal); R63.4 Abnormal weight loss
CPT/HCPCS: 36415; 80053; 83735; 85025

== ENCOUNTER → 2023-09-13 05:00 | Outpatient (REF) | payer MEDICARE, BC, SELFPAY ==
[2023-09-13 09:10] LABS: ALB/GLOB Ratio 0.7 RATIO (0.9-2.4); AST(SGOT) 16 U/L (15-37); Alanine Aminotransfer ALT/SGPT 11 U/L (13-56); Albumin, Serum 2.7 g/dL (3.2-5.0); Alkaline Phosphatase 80 U/L (45-117); Anion Gap 2 (5-15); BUN 18 mg/dL (7-18); BUN/Creat Ratio 31.3 RATIO (10-20); Calcium,Total 8.5 mg/dL (8.5-10.1); Chloride 112 mmol/L (98-107); Creatinine, Serum 0.58 mg/dL (0.55-1.02); EST Glomerular Filtration Rate 105 mL/min (>60); Est Glom Filt Rate - Afr Amer 127 mL/min (>60); Globulin 3.9 g/dL (2.2-4.2); Glucose 83 mg/dL (74-106); Potassium 3.7 mmol/L (3.5-5.1); Protein, Total 6.6 g/dL (6.4-8.2); Sodium Level 140 mmol/L (136-145)
== END ==
LOC: OLS.SW 05:00
PROVIDERS: Visit Provider Internal Medicine
DX: E87.6 Hypokalemia (principal)
CPT/HCPCS: 36415; 80053

== ENCOUNTER → 2023-10-13 05:00 | Outpatient (REF) | payer MEDICARE, BC, SELFPAY ==
[2023-10-13 07:16] LABS: Vitamin D,25 Hydroxy 35.3 ng/mL
== END ==
LOC: OLS.SW 05:00
PROVIDERS: Visit Provider Internal Medicine
DX: E55.9 Vitamin D deficiency, unspecified (principal)
CPT/HCPCS: 36415; 82306

== ENCOUNTER → 2023-11-09 | Outpatient (REF) | payer MEDICARE, BC, SELFPAY ==
[2023-11-09 10:41] LABS: Anion Gap 3 (5-15); BUN 13 mg/dL (7-18); BUN/Creat Ratio 21.2 RATIO (10-20); Chloride 108 mmol/L (98-107); Creatinine, Serum 0.61 mg/dL (0.55-1.02); EST Glomerular Filtration Rate 98 mL/min (>60); Est Glom Filt Rate - Afr Amer 118 mL/min (>60); Glucose 90 mg/dL (74-106); Potassium 4.5 mmol/L (3.5-5.1); Sodium Level 140 mmol/L (136-145)
== END ==
LOC: OLS.SW 06:35
PROVIDERS: Visit Provider Internal Medicine
DX: R29.898 Other symptoms and signs involving the musculoskeletal system (principal); E87.6 Hypokalemia
CPT/HCPCS: 36415; 80048

== ENCOUNTER → 2024-02-09 | Outpatient (REF) | payer MEDICARE, BC, SELFPAY ==
[2024-02-09 08:19] LABS: Vitamin D,25 Hydroxy 33.2 ng/mL
== END ==
LOC: OLS.SW 05:00
PROVIDERS: Visit Provider Internal Medicine
DX: E55.9 Vitamin D deficiency, unspecified (principal); R62.7 Adult failure to thrive; R29.898 Other symptoms and signs involving the musculoskeletal system
CPT/HCPCS: 36415; 82306

== ENCOUNTER → 2024-07-19 05:00 | Outpatient (REF) | payer MEDICARE, BC, SELFPAY ==
[2024-07-19 08:00] LABS: Hematocrit 36.6 % (37-47); Hemoglobin 12.1 g/dL (12.0-15.0); Mean Corp Hgb Conc 33.1 g/dL (32-36); Mean Corpuscular Hgb 30.6 pg (27.0-32.0); Mean Corpuscular Volume 92.7 fL (81-99); Mean Platelet Vol. 10.1 fl (6.2-12.0); Platelet Count 233 K/mm3 (150-450); RBC Distribution Width CV 13.5 % (11.6-14.6); RBC Distribution Width SD 46.3 fl (35.1-43.9); Red Blood Count 3.95 M/mm3 (4.2-5.4); White Blood Count 6.7 K/mm3 (4.4-11.0)
[2024-07-19 08:26] LABS: T4 Total, Thyroxin 5.7 ug/dL (4.8-13.9)
[2024-07-20 04:07] LABS: Prealbumin 12 mg/dL (9-32)
== END ==
LOC: OLS.SW 05:00
PROVIDERS: Visit Provider Family Medicine
DX: Z00.00 Encounter for general adult medical examination without abnormal findings (principal); E87.6 Hypokalemia; E46 Unspecified protein-calorie malnutrition
CPT/HCPCS: 36415; 84134; 84436; 84443; 85027